=== PATIENT | female | born 1965 | race Caucasian/White ===

== ENCOUNTER → 2016-03-13 | Outpatient (CLI) | payer OTHER ==
[~2016-03-13] MED LIST: ASPI1TAB24 PO; BENA25CA4 PO; BLAC20TA PO; FLON1SPR; LEVO100T5 PO; OMEP20CA3 PO; OXYC1TAB23 PO; PREM.6256 PO; VALT500T PO
--- NOTE | 2016-03-28 01:26 | ECWPNPC ---
PATIENT NAME: EVERETT BUSTILLO : 1965 GENDER: FEMALE VISIT DATE: 03/13/2016 DISCHARGE DATE: 03/13/16 1618 VISIT LOCKED DATE TIME: PHYSICIAN: ARMAND AUGUSTE PHYSICIAN PAGER NO: [phone] RESOURCE: ARMAND AUGUSTE REASON FOR APPOINTMENT 1. RIGHT KNEE HISTORY OF PRESENT ILLNESS HISTORY OF PRESENT ILLNESS: PAIN THE PATIENT DESCRIBES THE PAIN... FALL RISK SCREENING: SCREENING :NO FALLS IN THE PAST YEAR TODAY'S VISIT: NOTES: RATES PAIN TODAY 2/10. STATES PAIN HAS IMPROVED SHE HAS BEEN RESTING THE KNEE MORE AND HAS NOT BEEN BUCYCLING. SAW DR VALENCIA WHO FEELS SHE MAY HAVE DEVELOPED A TENDONITIS IN THE RIGHT KNEE/QUAD AREA. RATES HER PAIN TODAY 2/10. DESCRIBES IT INTERMITTTANT AND BURNING... CURRENT MEDICATIONS TAKING MULTIVITAMINS OTC TABLET 1 TABLET ORALLY ONCE A DAY TAKING BIOTIN OTC TABLET 1 TABLET ORALLY ONCE A DAY TAKING FLONASE 50 MCG/ACT SUSPENSION 1 PUFF IN EACH NOSTRIL NASALLY ONCE A DAY NEEDED TAKING PENLAC 8 % SOLUTION 1 DROP TO AFFECTED TOE NAILS DAILY, CLEAN OFF WITH ALCOHOL EVERY 7 DAYS EXTERNALLY ONCE A DAY, NOTES: 1 WEEK TAKING CLARITIN 10 MG TABLET 1 TABLET ORALLY ONCE A DAY TAKING ACYCLOVIR 400 MG TABLET 1 TABLET ORALLY TWICE A DAY TAKING LEVOTHYROXINE SODIUM 112 MCG TABLET 1 TABLET ORALLY ONCE A DAY TAKING OMEPRAZOLE 20MG 20MG TABLET 1 TAB BEFORE MEAL ORAL ONCE A DAY TAKING BLACK COHOSH 40 MG CAPSULE ORALLY TAKING ZOFRAN ODT 4 MG TABLET DISPERSIBLE 1 TABLET ON THE TONGUE AND ALLOW TO DISSOLVE ORALLY EVERY 8 HRS PRN NAUSEA TAKING ASPIRIN CHILDRENS 81 MG TABLET CHEWABLE 1 TABLET ORALLY ONCE A DAY TAKING PERCOCET 5-325 MG TABLET 1 TABLET ORALLY ONCE PER DAY MDD=1 FOR PAIN NEEDED TAKING VALTREX 500MG TABLET 1 TAB PLANNED PARENTHOOD ORALLY EVERY 12 HOURS NOT-TAKING PROBIOTIC OTC CAPSULE 1 TABLET ORALLY ONCE A DAY, NOTES: 1 WEEK NOT-TAKING VALACYCLOVIR HCL 500 MG TABLET TAKE ONE TABLET BY MOUTH TWO TIMES A DAY NOT-TAKING NAPROXEN 500 MG TABLET 1 TABLET NEEDED ORALLY EVERY 12 HOURS NOT-TAKING PREMPRO 0.625-2.5 MG TABLET 1 TABLET ORALLY ONCE A DAY NOT-TAKING MOBIC 7.5 MG TABLET 1 TABLET ORALLY TWICE/DAY NOT-TAKING ORTHO TRI-CYCLEN LO 0.025 MG TABLET 1 TAB PLANNED PARENTHOOD ORALLY ONCE A DAY, NOTES: 0700 MEDICATION LIST REVIEWED AND RECONCILED WITH THE PATIENT PAST MEDICAL HISTORY HYPOTHYROIDISM ESOPHAGEAL REFLUX HS 2 DEPRESSION/ANXIETY SUBSTANCE ABUSE BARTHOLIN'S GLAND CYST SKIN CA NOSE--? BCCA ECHO 07/16: NORMAL (EF75%, NO ABNL) HOLTER 09/15: NORMAL, WAS IN NSR DURING SYMPTOMS ABPM 10/16:MEAN SBP 130S +RF 06/17, MILD RA SX (SEE 06/17 NOTE) DERMOID CYST RT PELVIS CT 2015 SJOGREN'S ALLERGIES DEMEROL: NAUSEA/VOMITING: ALLERGY REGLAN: EKG ABNORMALITIES: ALLERGY PREMPRO: PALPITATIONS: SIDE EFFECTS SOCIAL HISTORY GENERAL: TOBACCO USE ARE YOU A:NONSMOKER LEARNING BARRIERS / SPECIAL NEEDS ORIENTED TO PLAN OF CARE: PATIENT, PAIN MANAGEMENT PATIENT, ORIENTED TO PLAN OF CARE: PATIENT, PAIN MANAGEMENT PATIENT. NEW PATIENT PAIN DIARY TODAY'S VISITNOTES FROM 0-10, WHAT LEVEL IS YOUR PAIN TODAY?0 PAIN CLINIC PFS, CLERGY, PUBLIC HEALTH REFERRALS PFS REFERRAL NEEDED?NO CLERGY REFERRAL NEEDED?NO PUBLIC HEALTH REFERRAL NEEDED?NO WAS THE PROVIDER NOTIFIED OF ANY PERTINENT INFO?NO PFS REFERRAL NEEDED?NO CLERGY REFERRAL NEEDED?NO PUBLIC HEALTH REFERRAL NEEDED?NO WAS THE PROVIDER NOTIFIED OF ANY PERTINENT INFO?NO REVIEW OF SYSTEMS CONSTITUTIONAL: ANY CHANGE IN YOUR MEDICAL CONDITION? NO . CHILLS NO . FEVER NO . INFECTION: DO YOU HAVE NEW INFECTIONS? NO . DO YOU HAVE HISTORY OF MRSA? NO . MUSCULOSKELETAL: ANY NEW PATTERNS OF PAIN OR NUMBNESS? NO . GASTROENTEROLOGY: ANY NEW CHANGE IN BOWEL CONTROL? NO . GENITOURINARY: ANY NEW CHANGE IN BLADDER CONTROL? NO . IS THERE A CHANCE YOU COULD BE ? NO . HEMATOLOGY/LYMPH: DO YOU TAKE ANY BLOOD THINNERS? (FOR EXAMPLE- COUMADIN, PLAVIX, AGGRENOX, PLATEL, PRADAXA, OR XARELTO) NO . WHEN WAS YOUR LAST DOSE? DATE: TIME: . NEUROLOGY: HAVE YOU FALLEN IN THE PAST 6 MONTHS? NO . ANY NEW EXTREMITY NUMBNESS OR WEAKNESS? NO . CARDIOLOGY: DO YOU HAVE A PACEMAKER OR DEFIBRILLATOR? NO . CHEST PAIN PATIENT DENIES . RESPIRATORY: HAVE YOU BEEN SICK IN THE PAST WEEK? NO . FEVER NO . FLU LIKE SYMPTOMS? NO . COUGH NO . INTEGUMENTARY: DO YOU HAVE ANY RASHES OR OPEN SORES? NO . ALLERGIC/IMMUNO: ARE YOU ALLERGIC TO SHELLFISH OR IV DYE? NO . ANY NEW ALLERGIES? NO . PSYCHIATRIC: DO YOU HAVE THOUGHTS OF HURTING YOURSELF OR SOMEONE ELSE? NO . ARE YOU ABUSED, NEGLECTED, OR IN AN UNSAFE ENVIRONMENT? NO . ENDOCRINOLOGY: ARE YOU DIABETIC? NO . OTHER: DO YOU NEED ANY PRESCRIPTIONS? YES PERCOCET . IF YES, PLEASE LIST: ____ . ANY NEW PROBLEMS WITH YOUR MEDICATIONS? NO . WHEN DID YOU LAST EAT? ____ . WHEN DID YOU LAST DRINK? ____ . WHAT DID YOU LAST DRINK? ____ . NAME OF PERSON DRIVING YOU HOME? ____ . DO YOU HAVE ANY OTHER QUESTIONS OR CONCERNS NO . 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 . REVIEWED BY: PROVIDER: ARMAND HOLLOWAY . VITAL SIGNS WT 114 LBS, HT 63 IN, BMI 20.19 INDEX, BP 120/50 MM HG, HR 88 /MIN, RR 16 /MIN, TEMP 98.2 F, OXYGEN SAT % 96, SAFE IN ENV? (Y/N) Y, REVIEWED BY: [email or web address]. EXAMINATION GENERAL EXAMINATION: PSYCHALERT , ORIENTED X 3 , APPROPRIATE MOOD AND AFFECT, FRUSTRATED . LUNGS:CLEAR TO AUSCULTATION BILATERALLY. HEART:HEART RATE REGULAR. MUSCULOSKELETAL:PALPATION: POSITIVE FOR PAIN OVER L/S SPINE. POSITIVE FOR PAIN OVER L/S PARSPINALS, TRIGGER POINTS:, ELICITED WITH PALPATION OVER LUMBAR PARAVERTEBRAL MUSCLES AND INTO THE SECRUM. RESTRICTION OF ROM IN THIS AREA. GAIT ANTALGIC. JOINTS:RIGHT , KNEE , TENDER, WITH RANGE OF MOTION . NO WARMTH OR SWELLING NOTED TODAY. ASSESSMENTS RHEUMATOID FACTOR POSITIVE - R76.8 (PRIMARY) MYALGIA - M79.1 KNEE PAIN, RIGHT - M25.561 TREATMENT KNEE PAIN, RIGHT REFILL PERCOCET TABLET, 5-325 MG, 1 TABLET, ORALLY, ONCE PER DAY MDD=1 FOR PAIN NEEDED, 30 DAYS, 20, REFILLS 0 NOTES: STRETCH BEFORE BIKING. ICE TO KNEE NEEDED. PROCEDURE CODES FA211 ESTABILISHED PATIENT [facility] CHARGE FOLLOW UP LATE MAY ELECTRONICALLY SIGNED BY SAVITA ALAS ON 03/26/2016 AT 02:38 PM EST DISCLAIMER : THIS IS A VISIT SUMMARY EXTRACTED FROM THE [employer] CHART. IT IS NOT A COPY OF THE [employer] PROGRESS NOTE. JOSE
== END ==
LOC: M PAIN 15:00
PROVIDERS: ATTEND Nurse Practitioner Family
DX: Z09 Encounter for follow-up examination after completed treatment for conditions other than malignant neoplasm (principal); M79.1 Myalgia; M25.561 Pain in right knee; R76.8 Other specified abnormal immunological findings in serum; E03.9 Hypothyroidism, unspecified; K21.9 Gastro-esophageal reflux disease without esophagitis; F32.9 Major depressive disorder, single episode, unspecified; F41.9 Anxiety disorder, unspecified; M35.00 Sjogren syndrome, unspecified; Z88.8 Allergy status to other drugs, medicaments and biological substances; Z88.5 Allergy status to narcotic agent; Z79.82 Long term (current) use of aspirin; Z79.891 Long term (current) use of opiate analgesic; Z79.899 Other long term (current) drug therapy; Z86.59 Personal history of other mental and behavioral disorders

== ENCOUNTER → 2016-03-16 | Outpatient (REF) | payer OTHER ==
[~2016-03-16] MED LIST changes: -ASPI1TAB24 PO; -BENA25CA4 PO; -BLAC20TA PO; -FLON1SPR; -LEVO100T5 PO; -OMEP20CA3 PO; -OXYC1TAB23 PO; -VALT500T PO
== END ==
LOC: M LAB REF 16:51
PROVIDERS: ATTEND Obstetrics & Gynecology
DX: N93.9 Abnormal uterine and vaginal bleeding, unspecified (principal)

== ENCOUNTER → 2016-03-22 | Outpatient (CLI) | payer OTHER ==
[~2016-03-22] MED LIST changes: +ASPI1TAB24 PO; +BENA25CA4 PO; +BLAC20TA PO; +FLON1SPR; +LEVO100T5 PO; +OMEP20CA3 PO; +OXYC1TAB23 PO; +VALT500T PO
[2016-03-22 17:58] LABS: FREE T4 1.02 NG/DL (0.76-1.46)
== END ==
LOC: M SMT 14:21
PROVIDERS: ATTEND Physician Assistant Medical
DX: E89.0 Postprocedural hypothyroidism (principal)

== ENCOUNTER 2016-04-09 09:14 | Day surgery (SDC) | payer OTHER ==
[~2016-04-09] VITALS: Ht 160 cm; Wt 53.5 kg
[2016-04-09] MEDS ORDERED: LR 1,000 ML IV SCH ×3 (09:30→15:56)
[2016-04-09] MEDS ORDERED: MULT1TAB18 PO (09:53)
[2016-04-09 10:07] LABS: CONTROL LINE UCG INT CTR LINE PRESENT
[2016-04-09 10:16] LABS: MEAN CORPUSCULAR HEMOGLOBIN 32.5 pg (27.0-33.0); MEAN CORPUSCULAR HGB CONC 33.6 g/dl (32.0-36.5); MEAN CORPUSCULAR VOLUME 96.7 fl (80.0-96.0); RED CELL DISTRIBUTION WIDTH 11.8 % (11.5-14.5); WHITE BLOOD COUNT 14.2 K/mm3 (4.0-10.0)
[2016-04-09] MEDS ORDERED: BUPIVACAINE HCL 0.25% 30 ML VIAL As Ordered ONE (11:07)
[2016-04-09] MEDS ORDERED: METHYLENE BLUE 1% 10 ML VIAL (Q9968) As Ordered ONE (11:07)
[2016-04-09] MEDS ORDERED: PROPOFOL 200 MG/20 ML VIAL As Ordered ONE ×2 (12:34→14:21)
[2016-04-09] MEDS ORDERED: ONDANSETRON 4MG/2ML VIAL (J2405) As Ordered ONE (12:34)
[2016-04-09] MEDS ORDERED: LIDOCAINE 2% INJ 100 MG/5 ML SDV (FOR ANES.) As Ordered ONE (12:34)
[2016-04-09] MEDS ORDERED: fentaNYL 250 MCG/5 ML INJECTION (J3010) As Ordered ONE (12:34)
[2016-04-09] MEDS ORDERED: ROCURONIUM BROMIDE 50 MG/5 ML VIAL As Ordered ONE ×2 (12:34→12:50)
[2016-04-09] MEDS ORDERED: MIDAZOLAM INJ 2 MG/2 ML VIAL (J2250) As Ordered ONE (12:34)
[2016-04-09] MEDS ORDERED: HYDROmorphone HCL 2 MG/ML 1ML VIAL (J1170) As Ordered ONE (12:34)
[2016-04-09] MEDS ORDERED: NEOSTIGMINE 1MG/ML 5 ML SYRINGE (J2710) As Ordered ONE (12:34)
[2016-04-09] MEDS ORDERED: dexameTHASONE 4 MG/ML 1ML VIAL (J1100) As Ordered ONE (12:34)
[2016-04-09] MEDS ORDERED: GLYCOPYRROLATE INJ 0.2 MG/ML 2 ML VIAL As Ordered ONE (12:34)
[2016-04-09] MEDS ORDERED: KETOROLAC 60 MG/2 ML VIAL (J1885) As Ordered ONE (12:34)
[2016-04-09] MEDS ORDERED: fentaNYL 100 MCG/2 ML INJECTION (J3010) As Ordered ONE (15:20)
[2016-04-09] MEDS ORDERED: METHYLENE BLUE 1% 10 ML VIAL (Q9968) XX ONE (15:26)
[2016-04-09] MEDS ORDERED: BUPIVACAINE HCL 0.25% 30 ML VIAL XX ONE (15:26)
[2016-04-09] MEDS ORDERED: ONDANSETRON 4MG/2ML VIAL (J2405) IV PRN ×2 (16:00→16:15)
[2016-04-09] MEDS ORDERED: PERCOCET 5MG/325MG TAB PO PRN (16:00)
[2016-04-09] MEDS ORDERED: PROMETHAZINE INJ 25 MG/ML VIAL (J2550) IV PRN (16:00)
[2016-04-09] MEDS: LR 1,000 ML IV SCH ×2 (16:15→16:53)
[2016-04-09 16:30] VITALS: BP 137/85
[2016-04-09 17:00] VITALS: BP 123/79
[2016-04-09 18:00] VITALS: BP 133/80
[2016-04-09] MEDS: KETOROLAC 30 MG/ML VIAL (J1885) IV SCH (18:42)
[2016-04-09 18:57] VITALS: BP 145/79
[2016-04-09] MEDS: PERCOCET 5MG/325MG TAB PO PRN ×2 (18:58→22:49)
[2016-04-09] MEDS: DOCUSATE SODIUM 100 MG CAP PO SCH (21:07)
[2016-04-09 22:56] VITALS: BP 120/70
[2016-04-10] MEDS: KETOROLAC 30 MG/ML VIAL (J1885) IV SCH ×2 (01:41→06:44)
[2016-04-10 02:00] VITALS: BP 116/63
[2016-04-10] MEDS: PERCOCET 5MG/325MG TAB PO PRN (05:27)
[2016-04-10 05:31] VITALS: BP 123/60
[2016-04-10 07:08] LABS: BASO % 0.1 % (0.0-1.0); EOS # 0.1 K/mm3 (0.0-0.50); EOS % 0.8 % (0.0-3.0); LARGE UNSTAINED CELL # 0.1 K/mm3 (0.0-0.4); LARGE UNSTAINED CELL % 0.8 % (0.0-4.0); LYMPH # 2.1 K/mm3 (1.5-4.5); LYMPH % 15.4 % (24.0-44.0); MEAN CORPUSCULAR HEMOGLOBIN 32.4 pg (27.0-33.0); MEAN CORPUSCULAR HGB CONC 33.1 g/dl (32.0-36.5); MEAN CORPUSCULAR VOLUME 97.7 fl (80.0-96.0); MONO # 0.7 K/mm3 (0.0-0.8); MONO % 5.4 % (0.0-5.0); NEUTROPHILS # 10.2 K/mm3 (1.8-7.7); NEUTROPHILS % 77.6 % (36.0-66.0); PLATELET COUNT, AUTOMATED 257 k/mm3 (150-450); RED CELL DISTRIBUTION WIDTH 12.4 % (11.5-14.5); WHITE BLOOD COUNT 13.1 K/mm3 (4.0-10.0)
[2016-04-10] MEDS: DOCUSATE SODIUM 100 MG CAP PO SCH (08:34)
[2016-04-10] MEDS ORDERED: OXYC1TAB23 PO (10:11)
[2016-04-10] MEDS ORDERED: IBUP600T26 PO (10:13)
[2016-04-10] MEDS ORDERED: COLA100C PO (10:13)
[2016-04-10] MEDS ORDERED: IBUPROFEN 800 MG TAB PO SCH (21:00)
== END 2016-04-10 11:40 | disposition home or self-care (01) ==
LOC: M SDC 09:14 → M OBS 16:40 → M SDC 04-10 11:40
PROVIDERS: ATTEND Obstetrics & Gynecology
DX: N93.9 Abnormal uterine and vaginal bleeding, unspecified (principal); R10.2 Pelvic and perineal pain; R19.09 Other intra-abdominal and pelvic swelling, mass and lump; D25.9 Leiomyoma of uterus, unspecified; E05.90 Thyrotoxicosis, unspecified without thyrotoxic crisis or storm; M50.920 Unspecified cervical disc disorder, mid-cervical region, unspecified level; R76.8 Other specified abnormal immunological findings in serum; F43.22 Adjustment disorder with anxiety; B00.9 Herpesviral infection, unspecified; I51.7 Cardiomegaly; K21.9 Gastro-esophageal reflux disease without esophagitis; F41.9 Anxiety disorder, unspecified; F32.9 Major depressive disorder, single episode, unspecified; N75.0 Cyst of Bartholin's gland; M06.9 Rheumatoid arthritis, unspecified; G89.29 Other chronic pain; T88.4XXD Failed or difficult intubation, subsequent encounter; T88.59XD Other complications of anesthesia, subsequent encounter; R01.1 Cardiac murmur, unspecified; Z88.1 Allergy status to other antibiotic agents; Z79.899 Other long term (current) drug therapy; Z79.82 Long term (current) use of aspirin; Z85.828 Personal history of other malignant neoplasm of skin
CPT/HCPCS: 36415; 58571; 84703; 85025; 85027; 86850; 86900; 86901; 88309; J0690; J1100; J1170; J1885; J2250; J2405; J2710; J3010; Q9968

== ENCOUNTER → 2016-05-07 | Outpatient (CLI) | payer OTHER ==
[~2016-05-07] MED LIST changes: +COLA100C PO; +IBUP600T26 PO; +MULT1TAB18 PO
[2016-05-07 21:16] LABS: FREE T4 1.01 NG/DL (0.76-1.46)
== END ==
LOC: M ADAMS 18:30
PROVIDERS: ATTEND Physician Assistant Medical
DX: E89.0 Postprocedural hypothyroidism (principal)

== ENCOUNTER → 2016-05-22 | Outpatient (CLI) | payer OTHER ==
--- NOTE | 2016-05-26 00:29 | ECWPNPC ---
PATIENT NAME: EVERETT BUSTILLO : 1965 GENDER: FEMALE VISIT DATE: 05/22/2016 DISCHARGE DATE: 05/22/16 1506 VISIT LOCKED DATE TIME: PHYSICIAN: ARMAND AUGUSTE PHYSICIAN PAGER NO: [phone] RESOURCE: ARMAND AUGUSTE REASON FOR APPOINTMENT 1. RIGHT KNEE HISTORY OF PRESENT ILLNESS HISTORY OF PRESENT ILLNESS: PAIN THE PATIENT DESCRIBES THE PAIN... FALL RISK SCREENING: SCREENING :NO FALLS IN THE PAST YEAR TODAY'S VISIT: NOTES: RATES PAIN TODAY 5/10. PAIN CENTERED ACROSS LOW BACK, RIGHT SHOULDERBLADE AND ACROSS NECK/SHOULDER GIRDLE. NOTES SHOULDERS ARE STIFF. KNEES ARE NOT TOO PAINFUL - HAS NOT BEEN BIKING BEFORE. . CURRENT MEDICATIONS TAKING MULTIVITAMINS OTC TABLET 1 TABLET ORALLY ONCE A DAY TAKING BIOTIN OTC TABLET 1 TABLET ORALLY ONCE A DAY TAKING FLONASE 50 MCG/ACT SUSPENSION 1 PUFF IN EACH NOSTRIL NASALLY ONCE A DAY NEEDED TAKING PENLAC 8 % SOLUTION 1 DROP TO AFFECTED TOE NAILS DAILY, CLEAN OFF WITH ALCOHOL EVERY 7 DAYS EXTERNALLY ONCE A DAY, NOTES: 1 WEEK TAKING CLARITIN 10 MG TABLET 1 TABLET ORALLY ONCE A DAY TAKING LEVOTHYROXINE SODIUM 88 MCG TABLET 1 TABLET ORALLY ONCE A DAY TAKING BLACK COHOSH 40 MG CAPSULE ORALLY DAILY TAKING ZOFRAN ODT 4 MG TABLET DISPERSIBLE 1 TABLET ON THE TONGUE AND ALLOW TO DISSOLVE ORALLY EVERY 8 HRS PRN NAUSEA TAKING ASPIRIN CHILDRENS 81 MG TABLET CHEWABLE 1 TABLET ORALLY ONCE A DAY TAKING PERCOCET 5-325 MG TABLET 1 TABLET ORALLY ONCE PER DAY MDD=1 FOR PAIN NEEDED TAKING ACYCLOVIR 400 MG TABLET 1 TABLET ORALLY TWICE A DAY TAKING VALTREX 500MG TABLET 1 TAB PLANNED PARENTHOOD ORALLY BID TAKING OMEPRAZOLE 20MG 20MG TABLET 1 TAB BEFORE MEAL ORAL ONCE A DAY TAKING ACIDOPHILUS - TABLET 1 TAB ORALLY DAILY NOT-TAKING OMEPRAZOLE 20 MG CAPSULE DELAYED RELEASE TAKE ONE CAPSULE BY MOUTH EVERY DAY BEFORE A MEAL MEDICATION LIST REVIEWED AND RECONCILED WITH THE PATIENT PAST MEDICAL HISTORY HYPOTHYROIDISM ESOPHAGEAL REFLUX HS 2 DEPRESSION/ANXIETY SUBSTANCE ABUSE BARTHOLIN'S GLAND CYST SKIN CA NOSE--? BCCA ECHO 07/16: NORMAL (EF75%, NO ABNL) HOLTER 09/15: NORMAL, WAS IN NSR DURING SYMPTOMS ABPM 10/16:MEAN SBP 130S +RF 06/17, MILD RA SX (SEE 06/17 NOTE) DERMOID CYST RT PELVIS CT 2016 SJOGREN'S ALLERGIES DEMEROL: NAUSEA/VOMITING: ALLERGY REGLAN: EKG ABNORMALITIES: ALLERGY PREMPRO: PALPITATIONS: SIDE EFFECTS SURGICAL HISTORY TONSILLECTOMY COLPOSCOPY LEEP -(PLANNED PARENTHOOD) 08/08 HYSTERECTOMY 04/09/16 SOCIAL HISTORY GENERAL: TOBACCO USE ARE YOU A:NONSMOKER LEARNING BARRIERS / SPECIAL NEEDS ORIENTED TO PLAN OF CARE: PATIENT, PAIN MANAGEMENT PATIENT, ORIENTED TO PLAN OF CARE: PATIENT, PAIN MANAGEMENT PATIENT. NEW PATIENT PAIN DIARY TODAY'S VISITNOTES FROM 0-10, WHAT LEVEL IS YOUR PAIN TODAY?0 PAIN CLINIC PFS, CLERGY, PUBLIC HEALTH REFERRALS PFS REFERRAL NEEDED?NO CLERGY REFERRAL NEEDED?NO PUBLIC HEALTH REFERRAL NEEDED?NO WAS THE PROVIDER NOTIFIED OF ANY PERTINENT INFO?NO PFS REFERRAL NEEDED?NO CLERGY REFERRAL NEEDED?NO PUBLIC HEALTH REFERRAL NEEDED?NO WAS THE PROVIDER NOTIFIED OF ANY PERTINENT INFO?NO REVIEW OF SYSTEMS CONSTITUTIONAL: ANY CHANGE IN YOUR MEDICAL CONDITION? YES, HYSTERECTOMY 04/09/16 . CHILLS NO . FEVER NO . INFECTION: DO YOU HAVE NEW INFECTIONS? NO . DO YOU HAVE HISTORY OF MRSA? NO . MUSCULOSKELETAL: ANY NEW PATTERNS OF PAIN OR NUMBNESS? NO . GASTROENTEROLOGY: ANY NEW CHANGE IN BOWEL CONTROL? NO . GENITOURINARY: ANY NEW CHANGE IN BLADDER CONTROL? NO . IS THERE A CHANCE YOU COULD BE ? NO . HEMATOLOGY/LYMPH: DO YOU TAKE ANY BLOOD THINNERS? (FOR EXAMPLE- COUMADIN, PLAVIX, AGGRENOX, PLATEL, PRADAXA, OR XARELTO) NO . WHEN WAS YOUR LAST DOSE? DATE: TIME: . NEUROLOGY: HAVE YOU FALLEN IN THE PAST 6 MONTHS? NO . ANY NEW EXTREMITY NUMBNESS OR WEAKNESS? NO . CARDIOLOGY: DO YOU HAVE A PACEMAKER OR DEFIBRILLATOR? NO . RESPIRATORY: HAVE YOU BEEN SICK IN THE PAST WEEK? NO . FEVER NO . FLU LIKE SYMPTOMS? NO . COUGH NO . INTEGUMENTARY: DO YOU HAVE ANY RASHES OR OPEN SORES? NO . ALLERGIC/IMMUNO: ARE YOU ALLERGIC TO SHELLFISH OR IV DYE? NO . ANY NEW ALLERGIES? NO . PSYCHIATRIC: DO YOU HAVE THOUGHTS OF HURTING YOURSELF OR SOMEONE ELSE? NO . ARE YOU ABUSED, NEGLECTED, OR IN AN UNSAFE ENVIRONMENT? NO . ENDOCRINOLOGY: ARE YOU DIABETIC? NO . OTHER: DO YOU NEED ANY PRESCRIPTIONS? YES . IF YES, PLEASE LIST: OXYCODONE 5/325 MG . ANY NEW PROBLEMS WITH YOUR MEDICATIONS? NO . WHEN DID YOU LAST EAT? ____ . WHEN DID YOU LAST DRINK? ____ . WHAT DID YOU LAST DRINK? ____ . NAME OF PERSON DRIVING YOU HOME? ____ . DO YOU HAVE ANY OTHER QUESTIONS OR CONCERNS YES, WOULD LIKE TO SCHEDULE PAIN INJECTION IN BACK . 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 HAS HAS SOME SEVERE HOT FLASHES. IS CONSIDERING HRT . REVIEWED BY: PROVIDER: ARMAND HOLLOWAY . VITAL SIGNS WT 115.2 LBS, HT 63 IN, BMI 20.40 INDEX, BP 119/74 MM HG, HR 94 /MIN, RR 16 /MIN, TEMP 99.1 F, OXYGEN SAT % 99%, NA INITIALS SC 14:08, REVIEWED BY: SHAUNA. EXAMINATION GENERAL EXAMINATION: PSYCHALERT , ORIENTED X 3 , APPROPRIATE MOOD AND AFFECT, FRUSTRATED . LUNGS:CLEAR TO AUSCULTATION BILATERALLY. HEART:HEART RATE REGULAR. MUSCULOSKELETAL:PALPATION: POSITIVE FOR PAIN OVER L/S SPINE. POSITIVE FOR PAIN OVER L/S PARSPINALS, TRIGGER POINTS:, ELICITED WITH PALPATION OVER LUMBAR PARAVERTEBRAL MUSCLES AND INTO THE SECRUM. RESTRICTION OF ROM IN THIS AREA. GAIT ANTALGIC. JOINTS:RIGHT , KNEE , TENDER, WITH RANGE OF MOTION . NO WARMTH OR SWELLING NOTED TODAY. ASSESSMENTS MYALGIA - M79.1 (PRIMARY) CERVICALGIA - M54.2 TREATMENT MYALGIA REFILL PERCOCET TABLET, 5-325 MG, 1 TABLET, ORALLY, ONCE PER DAY MDD=1 FOR PAIN NEEDED, 30 DAYS, 20, REFILLS 0 TRIGGER POINT 3 + ARMAND GUERRERO 05/22/2016 2:52:26 PM > MID AND LOW BACK BILATERAL NOTES: EXERCISE TOLERATED. CLINICAL NOTES: ISTOP REGISTRY REVIEWED AND DEMNOSTRATES COMPLLIANCE. BRINGS IN MEDICATIONS WHICH IS APPROPRIATE FOR WHAT WAS DISPENSED. RECENT URINE TOXICOLOGY REVIEWED. NO UNAUTHORIZED MEDICATIONS. NO ILLICIT SUBSTANCES AND PRESCRIBED MEDICATIONS WERE PRESENT. PROCEDURE CODES FA211 ESTABILISHED PATIENT [facility] CHARGE DISPOSITION & COMMUNICATION FOLLOW UP AFTER INJECTION (REASON: CHECK AUTH FOR TPI LOW BACK) ELECTRONICALLY SIGNED BY SAVITA ALAS ON 05/25/2016 AT 06:38 PM EDT DISCLAIMER : THIS IS A VISIT SUMMARY EXTRACTED FROM THE [employer] CHART. IT IS NOT A COPY OF THE [employer] PROGRESS NOTE. JOSE
== END ==
LOC: M PAIN 14:00
PROVIDERS: ATTEND Nurse Practitioner Family
DX: Z09 Encounter for follow-up examination after completed treatment for conditions other than malignant neoplasm (principal); G89.29 Other chronic pain; M79.1 Myalgia; M54.2 Cervicalgia; E03.9 Hypothyroidism, unspecified; K21.9 Gastro-esophageal reflux disease without esophagitis; L73.2 Hidradenitis suppurativa; F32.9 Major depressive disorder, single episode, unspecified; F41.9 Anxiety disorder, unspecified; M35.00 Sjogren syndrome, unspecified; Z88.5 Allergy status to narcotic agent; Z88.8 Allergy status to other drugs, medicaments and biological substances; Z79.82 Long term (current) use of aspirin; Z79.891 Long term (current) use of opiate analgesic; Z79.899 Other long term (current) drug therapy; Z86.59 Personal history of other mental and behavioral disorders

== ENCOUNTER → 2016-06-20 | Outpatient (CLI) | payer OTHER ==
[~2016-06-20] MED LIST changes: +BUPIVACAINE HCL 0.25% 10 ML VIAL As Ordered ONE; +BUPIVACAINE HCL 0.25% 30 ML VIAL As Ordered ONE; -COLA100C PO; +COLA100C3 PO; +TRIAMCINOLONE ACETONIDE SUSP 40 MG/ML VIAL (J3301) As Ordered ONE; +diazePAM 5 MG TAB As Ordered ONE; +oxyCODONE 5MG TAB As Ordered ONE
--- NOTE | 2016-06-25 00:13 | ECWPNPC ---
PATIENT NAME: EVERETT BUSTILLO : 1965 GENDER: FEMALE VISIT DATE: 06/20/2016 DISCHARGE DATE: 06/20/16 1621 VISIT LOCKED DATE TIME: PHYSICIAN: RUTHY AYERS PHYSICIAN PAGER NO: [phone] RESOURCE: RUTHY AYERS REASON FOR APPOINTMENT 1. TPI HISTORY OF PRESENT ILLNESS HISTORY OF PRESENT ILLNESS: PAIN THE PATIENT DESCRIBES THE PAIN... FALL RISK SCREENING: SCREENING :NO FALLS IN THE PAST YEAR CURRENT MEDICATIONS TAKING MULTIVITAMINS OTC TABLET 1 TABLET ORALLY ONCE A DAY, NOTES: 121 TAKING BIOTIN OTC TABLET 1 TABLET ORALLY ONCE A DAY, NOTES: 729 TAKING FLONASE 50 MCG/ACT SUSPENSION 1 PUFF IN EACH NOSTRIL NASALLY ONCE A DAY NEEDED, NOTES: 729 TAKING CLARITIN 10 MG TABLET 1 TABLET ORALLY ONCE A DAY, NOTES: 06/19/16@2100 TAKING LEVOTHYROXINE SODIUM 88 MCG TABLET 1 TABLET ORALLY ONCE A DAY, NOTES: 729 TAKING BLACK COHOSH 40 MG CAPSULE ORALLY DAILY, NOTES: 729 TAKING ZOFRAN ODT 4 MG TABLET DISPERSIBLE 1 TABLET ON THE TONGUE AND ALLOW TO DISSOLVE ORALLY EVERY 8 HRS PRN NAUSEA, NOTES: 1 MONTH AGO TAKING ASPIRIN CHILDRENS 81 MG TABLET CHEWABLE 1 TABLET ORALLY ONCE A DAY, NOTES: 06/19/16@2200 TAKING ACYCLOVIR 400 MG TABLET 1 TABLET ORALLY TWICE A DAY, NOTES: 729 TAKING VALTREX 500MG TABLET 1 TAB PLANNED PARENTHOOD ORALLY BID, NOTES: 1 WEEK TAKING OMEPRAZOLE 20MG 20MG TABLET 1 TAB BEFORE MEAL ORAL ONCE A DAY, NOTES: 1214 TAKING ACIDOPHILUS - TABLET 1 TAB ORALLY DAILY, NOTES: 729 TAKING PERCOCET 5-325 MG TABLET 1 TABLET ORALLY ONCE PER DAY MDD=1 FOR PAIN NEEDED, NOTES: 2 DAYS AGO TAKING PENLAC 8% SOLUTION 1 DROP TO AFFECTED TOE NAILS DAILY, CLEAN OFF WITH ALCOHOL EVERY 7 DAYS EXTERNALLY ONCE A DAY, NOTES: 1 MONTH AGO NOT-TAKING OMEPRAZOLE 20 MG CAPSULE DELAYED RELEASE TAKE ONE CAPSULE BY MOUTH EVERY DAY BEFORE A MEAL MEDICATION LIST REVIEWED AND RECONCILED WITH THE PATIENT PAST MEDICAL HISTORY HYPOTHYROIDISM ESOPHAGEAL REFLUX HS 2 DEPRESSION/ANXIETY SUBSTANCE ABUSE BARTHOLIN'S GLAND CYST SKIN CA NOSE--? BCCA ECHO 07/16: NORMAL (EF75%, NO ABNL) HOLTER 09/15: NORMAL, WAS IN NSR DURING SYMPTOMS ABPM 10/16:MEAN SBP 130S +RF 06/17, MILD RA SX (SEE 06/17 NOTE) DERMOID CYST RT PELVIS CT 2016 SJOGREN'S ALLERGIES DEMEROL: NAUSEA/VOMITING: ALLERGY REGLAN: EKG ABNORMALITIES: ALLERGY PREMPRO: PALPITATIONS: SIDE EFFECTS SOCIAL HISTORY GENERAL: PAIN CLINIC PFS, CLERGY, PUBLIC HEALTH REFERRALS CLERGY REFERRAL NEEDED?NO WAS THE PROVIDER NOTIFIED OF ANY PERTINENT INFO?NO PFS REFERRAL NEEDED?NO PUBLIC HEALTH REFERRAL NEEDED?NO PATIENT: ____. REVIEW OF SYSTEMS CONSTITUTIONAL: ANY CHANGE IN YOUR MEDICAL CONDITION? NO . CHILLS NO . FEVER NO . INFECTION: DO YOU HAVE NEW INFECTIONS? NO . DO YOU HAVE HISTORY OF MRSA? NO . MUSCULOSKELETAL: ANY NEW PATTERNS OF PAIN OR NUMBNESS? NO . GASTROENTEROLOGY: ANY NEW CHANGE IN BOWEL CONTROL? NO . GENITOURINARY: ANY NEW CHANGE IN BLADDER CONTROL? NO . IS THERE A CHANCE YOU COULD BE ? NO . HEMATOLOGY/LYMPH: DO YOU TAKE ANY BLOOD THINNERS? (FOR EXAMPLE- COUMADIN, PLAVIX, AGGRENOX, PLATEL, PRADAXA, OR XARELTO) NO . WHEN WAS YOUR LAST DOSE? DATE: TIME: . NEUROLOGY: HAVE YOU FALLEN IN THE PAST 6 MONTHS? NO . ANY NEW EXTREMITY NUMBNESS OR WEAKNESS? NO . CARDIOLOGY: DO YOU HAVE A PACEMAKER OR DEFIBRILLATOR? NO . RESPIRATORY: HAVE YOU BEEN SICK IN THE PAST WEEK? NO . FEVER NO . FLU LIKE SYMPTOMS? NO . COUGH NO . INTEGUMENTARY: DO YOU HAVE ANY RASHES OR OPEN SORES? NO . ALLERGIC/IMMUNO: ARE YOU ALLERGIC TO SHELLFISH OR IV DYE? NO . ANY NEW ALLERGIES? NO . PSYCHIATRIC: DO YOU HAVE THOUGHTS OF HURTING YOURSELF OR SOMEONE ELSE? NO . ARE YOU ABUSED, NEGLECTED, OR IN AN UNSAFE ENVIRONMENT? NO . ENDOCRINOLOGY: ARE YOU DIABETIC? NO . OTHER: DO YOU NEED ANY PRESCRIPTIONS? NO . IF YES, PLEASE LIST: ____ . ANY NEW PROBLEMS WITH YOUR MEDICATIONS? NO . WHEN DID YOU LAST EAT? ____0930 . WHEN DID YOU LAST DRINK? ____1330 . WHAT DID YOU LAST DRINK? ____VEGTABLE BROTH AND WATER . NAME OF PERSON DRIVING YOU HOME? ____KEN . DO YOU HAVE ANY OTHER QUESTIONS OR CONCERNS NO . REVIEWED BY: PROVIDER: . VITAL SIGNS WT 115 LBS, HT 63 IN, BMI 20.37 INDEX, BP 114/69 MM HG, HR 70 /MIN, RR 16 /MIN, TEMP 98.4 F, OXYGEN SAT % 99%, NA INITIALS SC 15:28. ASSESSMENTS MYALGIA - M79.1 (PRIMARY) PROCEDURES PN TRIGGER POINT INJECTION WITH STEROIDS PRE PROCEDURE DIAGNOSIS 1. MYALGIA 2. PAIN AT BILATERAL NECK AREA AND BILATERAL SHOULDER AREA POST PROCEDURE DIAGNOSIS 1. MYALGIA 2. PAIN AT BILATERAL NECK AREA AND BILATERAL SHOULDER AREA PROCEDURE TRIGGER POINT INJECTION AT BILATERAL NECK AREA AND BILATERAL SHOULDER AREA SURGEON DR. RUTHY AYERS ASSOCIATION EXECUTIVE NONE ANESTHESIA LOCAL PRE PROCEDURE NOTE THE PATIENT HAS A HISTORY OF CHRONIC PAIN AT THE RIGHT AND LEFT NECK AREA AND RIGHT AND LEFT SHOULDER AREA. I EVALUATE THE PATIENT AND REVIEWED THE CHART. THERE IS EVIDENCE OF BANDS OF TISSUE WITH RESTRICTION OF MOVEMENT AND PRESENCE OF TRIGGER POINT AT THE AFFECTED AREA. I WENT OVER THE RISKS, ALTERNATIVES, AND BENEFITS ASSOCIATED WITH THIS PROCEDURE. THE PATIENT WOULD LIKE TO PROCEED AND GIVE CONSENT TO PERFORMED THE PROCEDURE. THE PATIENT DENIES UNEXPLAINABLE WEIGHT LOSS, FEVER, CHILLS, OR NEW CHANGES IN URINARY OR BOWEL CONTROL DESCRIPTION OF PROCEDURE THE PATIENT WAS BROUGHT TO THE PROCEDURE ROOM AND PLACED IN THE SITTING POSITION. THE AREA WAS CLEANED WITH ALCOHOL. THE PROCEDURE WAS DONE USING ASEPTIC STERILE TECHNIQUE. I CHECKED LATERALITY AND THE LEVEL WHERE THE PROCEDURE WAS GOING TO BE PERFORMED WITH THE PATIENT AND THE SUPPORTING STAFF AT THE MOMENT OF THE TIME OUT IN THE PROCEDURE ROOM. USING A 25-GAUGE NEEDLE, TRIGGER POINTS WERE INJECTED AT THE RIGHT AND LEFT NECK AREA AND RIGHT AND LEFT SHOULDER AREA WITH A TOTAL OF 40 ML OF BUPIVACAINE 0.25% AND KENALOG 40 MG. THERE WAS NO EVIDENCE OF BLOOD, PARESTHESIA OR CEREBROSPINAL FLUID DURING THE PROCEDURE. THE PATIENT WAS SENT TO THE RECOVERY ROOM. THE PATIENT WAS MOVING THE EXTREMITIES AND DOING WELL. THERE WAS NO COMPLICATION DURING THE PROCEDURE POST PROCEDURE NOTE THE PATIENT WILL BE SEEN IN A FOLLOW UP IN THE NEXT FEW WEEKS. INSTRUCTIONS WERE GIVEN, QUESTIONS WERE ANSWERED, AND THE PATIENT EXPRESSED UNDERSTANDING AND AGREES WITH THE PLAN. I, LYRIC GARCIA, DOCUMENTED THE ABOVE INFORMATION ACTING A SCRIBE FOR DR. AYERS. I HAVE REVIEWED THE ABOVE DOCUMENT, WRITTEN BY LYRIC GARCIA SCRIBNahomi AND I VERIFY THAT IT IS ACCURATE. PROCEDURE CODES 54109 INJECT TRIGGER POINTS 3/> DISPOSITION & COMMUNICATION FOLLOW UP 3 WEEKS ELECTRONICALLY SIGNED BY RUTHY AYERS MD ON 06/24/2016 AT 05:58 PM EDT DISCLAIMER : THIS IS A VISIT SUMMARY EXTRACTED FROM THE [employer] CHART. IT IS NOT A COPY OF THE [employer] PROGRESS NOTE. JOSE
== END ==
LOC: M PAIN 15:20
PROVIDERS: ATTEND Anesthesiology
DX: G89.29 Other chronic pain (principal); M79.1 Myalgia; M54.2 Cervicalgia; M25.511 Pain in right shoulder; M25.512 Pain in left shoulder; E03.9 Hypothyroidism, unspecified; K21.9 Gastro-esophageal reflux disease without esophagitis; F41.9 Anxiety disorder, unspecified; F32.9 Major depressive disorder, single episode, unspecified; M35.00 Sjogren syndrome, unspecified; Z88.8 Allergy status to other drugs, medicaments and biological substances; Z79.82 Long term (current) use of aspirin; Z79.891 Long term (current) use of opiate analgesic; Z79.899 Other long term (current) drug therapy; Z86.59 Personal history of other mental and behavioral disorders
CPT/HCPCS: 20553; J3301

== ENCOUNTER → 2016-06-29 | Outpatient (CLI) | payer OTHER ==
[~2016-06-29] MED LIST changes: -BUPIVACAINE HCL 0.25% 10 ML VIAL As Ordered ONE; -BUPIVACAINE HCL 0.25% 30 ML VIAL As Ordered ONE; -TRIAMCINOLONE ACETONIDE SUSP 40 MG/ML VIAL (J3301) As Ordered ONE; -diazePAM 5 MG TAB As Ordered ONE; -oxyCODONE 5MG TAB As Ordered ONE
== END ==
LOC: M ADAMS 15:07
PROVIDERS: ATTEND Physician Assistant Medical
DX: E89.0 Postprocedural hypothyroidism (principal)

== ENCOUNTER → 2016-07-26 | Outpatient (CLI) | payer OTHER ==
--- NOTE | 2016-07-30 23:14 | ECWPNPC ---
PATIENT NAME: EVERETT BUSTILLO : 1965 GENDER: FEMALE VISIT DATE: 07/26/2016 DISCHARGE DATE: 07/26/16 1149 VISIT LOCKED DATE TIME: PHYSICIAN: ARMAND AUGUSTE PHYSICIAN PAGER NO: [phone] RESOURCE: ARMAND AUGUSTE HISTORY OF PRESENT ILLNESS HISTORY OF PRESENT ILLNESS: PAIN THE PATIENT DESCRIBES THE PAIN... FALL RISK SCREENING: SCREENING :NO FALLS IN THE PAST YEAR TODAY'S VISIT: NOTES: RATES PAIN LEVEL TODAY 2/10. REPORTS HER HIP AND BACK PAIN ARE &QUOT;GETTING WORSE&QUOT;. IS S/P TRIGGER POIT INJECTIONS TO BILATERAL NECK AND SHOULDERS. REPORTS SOME DISCOMFORT ACROSS THE RIGHT SHOULDER AND NECK REGION.. CURRENT MEDICATIONS TAKING MULTIVITAMINS OTC TABLET 1 TABLET ORALLY ONCE A DAY, NOTES: 121 TAKING BIOTIN OTC TABLET 1 TABLET ORALLY ONCE A DAY, NOTES: 729 TAKING FLONASE 50 MCG/ACT SUSPENSION 1 PUFF IN EACH NOSTRIL NASALLY ONCE A DAY NEEDED, NOTES: 729 TAKING CLARITIN 10 MG TABLET 1 TABLET ORALLY ONCE A DAY, NOTES: 06/19/16@2100 TAKING LEVOTHYROXINE SODIUM 88 MCG TABLET 1 TABLET ORALLY ONCE A DAY, NOTES: 729 TAKING BLACK COHOSH 40 MG CAPSULE ORALLY DAILY, NOTES: 729 TAKING ZOFRAN ODT 4 MG TABLET DISPERSIBLE 1 TABLET ON THE TONGUE AND ALLOW TO DISSOLVE ORALLY EVERY 8 HRS PRN NAUSEA, NOTES: 1 MONTH AGO TAKING ASPIRIN CHILDRENS 81 MG TABLET CHEWABLE 1 TABLET ORALLY ONCE A DAY, NOTES: 06/19/16@2200 TAKING ACYCLOVIR 400 MG TABLET 1 TABLET ORALLY TWICE A DAY, NOTES: 729 TAKING VALTREX 500MG TABLET 1 TAB PLANNED PARENTHOOD ORALLY BID, NOTES: 1 WEEK TAKING OMEPRAZOLE 20MG 20MG TABLET 1 TAB BEFORE MEAL ORAL ONCE A DAY, NOTES: 121 TAKING ACIDOPHILUS - TABLET 1 TAB ORALLY DAILY, NOTES: 729 TAKING PERCOCET 5-325 MG TABLET 1 TABLET ORALLY ONCE PER DAY MDD=1 FOR PAIN NEEDED, NOTES: 2 DAYS AGO TAKING PENLAC 8% SOLUTION 1 DROP TO AFFECTED TOE NAILS DAILY, CLEAN OFF WITH ALCOHOL EVERY 7 DAYS EXTERNALLY ONCE A DAY, NOTES: 1 MONTH AGO NOT-TAKING OMEPRAZOLE 20 MG CAPSULE DELAYED RELEASE TAKE ONE CAPSULE BY MOUTH EVERY DAY BEFORE A MEAL MEDICATION LIST REVIEWED AND RECONCILED WITH THE PATIENT PAST MEDICAL HISTORY HYPOTHYROIDISM ESOPHAGEAL REFLUX HS 2 DEPRESSION/ANXIETY SUBSTANCE ABUSE BARTHOLIN'S GLAND CYST SKIN CA NOSE--? BCCA ECHO 07/16: NORMAL (EF75%, NO ABNL) HOLTER 09/15: NORMAL, WAS IN NSR DURING SYMPTOMS ABPM 10/16:MEAN SBP 130S +RF 06/17, MILD RA SX (SEE 06/17 NOTE) DERMOID CYST RT PELVIS CT 2016 SJOGREN'S ALLERGIES DEMEROL: NAUSEA/VOMITING: ALLERGY REGLAN: EKG ABNORMALITIES: ALLERGY PREMPRO: PALPITATIONS: SIDE EFFECTS REVIEW OF SYSTEMS CONSTITUTIONAL: ANY CHANGE IN YOUR MEDICAL CONDITION? NO . CHILLS NO . FEVER NO . INFECTION: DO YOU HAVE NEW INFECTIONS? YES,SINUS . DO YOU HAVE HISTORY OF MRSA? NO . MUSCULOSKELETAL: ANY NEW PATTERNS OF PAIN OR NUMBNESS? YES . GASTROENTEROLOGY: ANY NEW CHANGE IN BOWEL CONTROL? NO . GENITOURINARY: ANY NEW CHANGE IN BLADDER CONTROL? NO . IS THERE A CHANCE YOU COULD BE ? NO . HEMATOLOGY/LYMPH: DO YOU TAKE ANY BLOOD THINNERS? (FOR EXAMPLE- COUMADIN, PLAVIX, AGGRENOX, PLATEL, PRADAXA, OR XARELTO) NO . WHEN WAS YOUR LAST DOSE? DATE: TIME: . NEUROLOGY: HAVE YOU FALLEN IN THE PAST 6 MONTHS? NO . ANY NEW EXTREMITY NUMBNESS OR WEAKNESS? NO . CARDIOLOGY: DO YOU HAVE A PACEMAKER OR DEFIBRILLATOR? NO . RESPIRATORY: HAVE YOU BEEN SICK IN THE PAST WEEK? NO . FEVER NO . FLU LIKE SYMPTOMS? NO . COUGH NO . INTEGUMENTARY: DO YOU HAVE ANY RASHES OR OPEN SORES? NO . ALLERGIC/IMMUNO: ARE YOU ALLERGIC TO SHELLFISH OR IV DYE? NO . ANY NEW ALLERGIES? NO . PSYCHIATRIC: DO YOU HAVE THOUGHTS OF HURTING YOURSELF OR SOMEONE ELSE? NO . ARE YOU ABUSED, NEGLECTED, OR IN AN UNSAFE ENVIRONMENT? NO . ENDOCRINOLOGY: ARE YOU DIABETIC? NO . OTHER: DO YOU NEED ANY PRESCRIPTIONS? YES . IF YES, PLEASE LIST: ____PERCOCET . ANY NEW PROBLEMS WITH YOUR MEDICATIONS? NO . WHEN DID YOU LAST EAT? ____ . WHEN DID YOU LAST DRINK? ____ . WHAT DID YOU LAST DRINK? ____ . NAME OF PERSON DRIVING YOU HOME? ____ . DO YOU HAVE ANY OTHER QUESTIONS OR CONCERNS YES,HIP AND LOWER BACK GETTING WORSE . REVIEWED BY: PROVIDER: ARMAND HOLLOWAY . VITAL SIGNS WT 112.8 LBS, HT 63 IN, BMI 19.98 INDEX, BP 119/76 MM HG, HR 79 /MIN, RR 16 /MIN, TEMP 98.6 F, OXYGEN SAT % 97%, NA INITIALS SC 10:58, REVIEWED BY: VD. EXAMINATION GENERAL EXAMINATION: PSYCHALERT , ORIENTED X 3 , APPROPRIATE MOOD AND AFFECT, FRUSTRATED . LUNGS:CLEAR TO AUSCULTATION BILATERALLY. HEART:HEART RATE REGULAR. MUSCULOSKELETAL:POINT THENDERNESS OVER RIGHT LUMBAR FACETS AND SACRUM., TRIGGER POINTS:, ELICITED WITH PALPATION OVER LUMBAR PARAVERTEBRAL MUSCLES AND INTO THE SECRUM. RESTRICTION OF ROM IN THIS AREA. GAIT ANTALGIC. JOINTS:RIGHT , KNEE , TENDER, WITH RANGE OF MOTION . NO WARMTH OR SWELLING NOTED TODAY. ASSESSMENTS MYALGIA - M79.1 (PRIMARY) CERVICALGIA - M54.2 LUMBAR FACET ARTHROPATHY - M12.88 RHEUMATOID ARTHRITIS INVOLVING MULTIPLE SITES WITH POSITIVE RHEUMATOID FACTOR - M05.79 TREATMENT MYALGIA REFILL PERCOCET TABLET, 5-325 MG, 1 TABLET, ORALLY, ONCE PER DAY MDD=1 FOR PAIN NEEDED, 30 DAYS, 20, REFILLS 0, NOTES: 2 DAYS AGO TRIGGER POINT 3 + ARMAND GUERRERO 07/26/2016 11:38:14 AM > LOW BACK/SACRUM RIGHT SIDE NOTES: USE TENNIS BALL TO APPLY PRESSURE TO TENDER POINTS ON BACK/NECK AREA. BRING PAIN MEDS TO EVERY VISIT. REFERRAL TO:[facility] REASON:POSITIVE RHEUMATOID FACTOR, JOINT PAIN SWELLING PREVENTIVE MEDICINE TRIGGER POINT INJECTIONS INFORMATION LENNY IGLESIAS. PROCEDURE CODES FA211 ESTABILISHED PATIENT [facility] FAC[facility] CHARGE DISPOSITION & COMMUNICATION FOLLOW UP AFTER INJECTION (REASON: CHECK AUTH FOR TPI LOW BACK, RIGHT) ELECTRONICALLY SIGNED BY SAVITA ALAS ON 07/30/2016 AT 02:23 PM EDT DISCLAIMER : THIS IS A VISIT SUMMARY EXTRACTED FROM THE [employer] CHART. IT IS NOT A COPY OF THE [employer] PROGRESS NOTE. JOSE
== END ==
LOC: M PAIN 10:40
PROVIDERS: ATTEND Nurse Practitioner Family
DX: G89.29 Other chronic pain (principal); M79.1 Myalgia; M54.2 Cervicalgia; M12.88 Other specific arthropathies, not elsewhere classified, other specified site; M05.79 Rheumatoid arthritis with rheumatoid factor of multiple sites without organ or systems involvement; E03.9 Hypothyroidism, unspecified; K21.9 Gastro-esophageal reflux disease without esophagitis; F32.9 Major depressive disorder, single episode, unspecified; F41.9 Anxiety disorder, unspecified; F43.22 Adjustment disorder with anxiety; M35.00 Sjogren syndrome, unspecified; I51.7 Cardiomegaly; Z88.5 Allergy status to narcotic agent; Z88.8 Allergy status to other drugs, medicaments and biological substances; Z79.82 Long term (current) use of aspirin; Z79.891 Long term (current) use of opiate analgesic; Z79.899 Other long term (current) drug therapy; Z86.59 Personal history of other mental and behavioral disorders

== ENCOUNTER → 2016-08-16 | Outpatient (CLI) | payer OTHER ==
[~2016-08-16] MED LIST changes: +BUPIVACAINE HCL 0.25% 10 ML VIAL As Ordered ONE; +BUPIVACAINE HCL 0.25% 30 ML VIAL As Ordered ONE; +TRIAMCINOLONE ACETONIDE SUSP 40 MG/ML VIAL (J3301) As Ordered ONE; +diazePAM 5 MG TAB As Ordered ONE; +oxyCODONE 5MG TAB As Ordered ONE
--- NOTE | 2016-08-24 00:44 | ECWPNPC ---
PATIENT NAME: EVERETT BUSTILLO : 1965 GENDER: FEMALE VISIT DATE: 08/16/2016 DISCHARGE DATE: 08/16/16 1308 VISIT LOCKED DATE TIME: PHYSICIAN: RUTHY AYERS PHYSICIAN PAGER NO: [phone] RESOURCE: RUTHY AYERS REASON FOR APPOINTMENT 1. LOW BACK HISTORY OF PRESENT ILLNESS HISTORY OF PRESENT ILLNESS: PAIN THE PATIENT DESCRIBES THE PAIN... FALL RISK SCREENING: SCREENING :NO FALLS IN THE PAST YEAR CURRENT MEDICATIONS TAKING MULTIVITAMINS OTC TABLET 1 TABLET ORALLY ONCE A DAY, NOTES: 2 DAYS AGO TAKING BIOTIN OTC TABLET 1 TABLET ORALLY ONCE A DAY, NOTES: 629 TAKING FLONASE 50 MCG/ACT SUSPENSION 1 PUFF IN EACH NOSTRIL NASALLY ONCE A DAY NEEDED, NOTES: 729 TAKING CLARITIN 10 MG TABLET 1 TABLET ORALLY ONCE A DAY, NOTES: 08/15/16@2200 TAKING LEVOTHYROXINE SODIUM 88 MCG TABLET 1 TABLET ORALLY ONCE A DAY, NOTES: 629 TAKING BLACK COHOSH 40 MG CAPSULE ORALLY DAILY, NOTES: 629 TAKING ZOFRAN ODT 4 MG TABLET DISPERSIBLE 1 TABLET ON THE TONGUE AND ALLOW TO DISSOLVE ORALLY EVERY 8 HRS PRN NAUSEA, NOTES: 5 DAYS AGO TAKING ASPIRIN CHILDRENS 81 MG TABLET CHEWABLE 1 TABLET ORALLY ONCE A DAY, NOTES: 3 WEEKS AGO TAKING ACYCLOVIR 400 MG TABLET 1 TABLET ORALLY TWICE A DAY, NOTES: 3 DAYS AGO TAKING VALTREX 500MG TABLET 1 TAB PLANNED PARENTHOOD ORALLY BID, NOTES: 30 TAKING OMEPRAZOLE 20MG 20MG TABLET 1 TAB BEFORE MEAL ORAL ONCE A DAY, NOTES: 3 DAYS AGO TAKING ACIDOPHILUS - TABLET 1 TAB ORALLY DAILY, NOTES: 1 MONTH AGO TAKING PENLAC 8% SOLUTION 1 DROP TO AFFECTED TOE NAILS DAILY, CLEAN OFF WITH ALCOHOL EVERY 7 DAYS EXTERNALLY ONCE A DAY, NOTES: 6 DAYS AGO TAKING PERCOCET 5-325 MG TABLET 1 TABLET ORALLY ONCE PER DAY MDD=1 FOR PAIN NEEDED, NOTES: 2 DAYS AGO TAKING ESTROVEN MENOPAUSE RELIEF - CAPSULE ORALLY , NOTES: 08/15/16@1900 NOT-TAKING OMEPRAZOLE 20 MG CAPSULE DELAYED RELEASE TAKE ONE CAPSULE BY MOUTH EVERY DAY BEFORE A MEAL MEDICATION LIST REVIEWED AND RECONCILED WITH THE PATIENT PAST MEDICAL HISTORY HYPOTHYROIDISM ESOPHAGEAL REFLUX HS 2 DEPRESSION/ANXIETY SUBSTANCE ABUSE BARTHOLIN'S GLAND CYST SKIN CA NOSE--? BCCA ECHO 07/16: NORMAL (EF75%, NO ABNL) HOLTER 09/15: NORMAL, WAS IN NSR DURING SYMPTOMS ABPM 10/16:MEAN SBP 130S +RF 06/17, MILD RA SX (SEE 06/17 NOTE) DERMOID CYST RT PELVIS CT 2015 SJOGREN'S ALLERGIES DEMEROL: NAUSEA/VOMITING: ALLERGY REGLAN: EKG ABNORMALITIES: ALLERGY PREMPRO: PALPITATIONS: SIDE EFFECTS REVIEW OF SYSTEMS REVIEWED BY: PROVIDER: . CONSTITUTIONAL: ANY CHANGE IN YOUR MEDICAL CONDITION? NO . CHILLS NO . FEVER NO . INFECTION: DO YOU HAVE NEW INFECTIONS? NO . DO YOU HAVE HISTORY OF MRSA? NO . MUSCULOSKELETAL: ANY NEW PATTERNS OF PAIN OR NUMBNESS? YES . GASTROENTEROLOGY: ANY NEW CHANGE IN BOWEL CONTROL? NO . GENITOURINARY: ANY NEW CHANGE IN BLADDER CONTROL? NO . IS THERE A CHANCE YOU COULD BE ? NO . HEMATOLOGY/LYMPH: DO YOU TAKE ANY BLOOD THINNERS? (FOR EXAMPLE- COUMADIN, PLAVIX, AGGRENOX, PLATEL, PRADAXA, OR XARELTO) NO . WHEN WAS YOUR LAST DOSE? DATE: TIME: . NEUROLOGY: HAVE YOU FALLEN IN THE PAST 6 MONTHS? NO . ANY NEW EXTREMITY NUMBNESS OR WEAKNESS? NO . CARDIOLOGY: DO YOU HAVE A PACEMAKER OR DEFIBRILLATOR? NO . RESPIRATORY: HAVE YOU BEEN SICK IN THE PAST WEEK? NO . FEVER NO . FLU LIKE SYMPTOMS? NO . COUGH NO . INTEGUMENTARY: DO YOU HAVE ANY RASHES OR OPEN SORES? NO . ALLERGIC/IMMUNO: ARE YOU ALLERGIC TO SHELLFISH OR IV DYE? NO . ANY NEW ALLERGIES? NO . PSYCHIATRIC: DO YOU HAVE THOUGHTS OF HURTING YOURSELF OR SOMEONE ELSE? NO . ARE YOU ABUSED, NEGLECTED, OR IN AN UNSAFE ENVIRONMENT? NO . ENDOCRINOLOGY: ARE YOU DIABETIC? NO . OTHER: DO YOU NEED ANY PRESCRIPTIONS? YES . IF YES, PLEASE LIST: ____OXYCODONE . ANY NEW PROBLEMS WITH YOUR MEDICATIONS? NO . WHEN DID YOU LAST EAT? ____0230 . WHEN DID YOU LAST DRINK? ____0850 . WHAT DID YOU LAST DRINK? ____CHICKEN BROTH,WATER . NAME OF PERSON DRIVING YOU HOME? ____[employer] . DO YOU HAVE ANY OTHER QUESTIONS OR CONCERNS NO . VITAL SIGNS WT 111.4 LBS, HT 63 IN, BMI 19.73 INDEX, BP 139/82 MM HG, HR 90 /MIN, RR 16 /MIN, TEMP 98.2 F, OXYGEN SAT % 100%, NA INITIALS TL 1103, REVIEWED BY: VD. ASSESSMENTS MYALGIA - M79.1 (PRIMARY) PROCEDURES PN TRIGGER POINT INJECTION WITH STEROIDS PRE PROCEDURE DIAGNOSIS 1. MYALGIA 2. PAIN AT LEFT THORACIC AREA AND LEFT LOWER BACK AREA POST PROCEDURE DIAGNOSIS 1. MYALGIA 2. PAIN AT LEFT THORACIC AREA AND LEFT LOWER BACK AREA PROCEDURE TRIGGER POINT INJECTION AT LEFT THORACIC AREA AND LEFT LOWER BACK AREA SURGEON DR. RUTHY AYERS ORNAMENTER NONE ANESTHESIA LOCAL PRE PROCEDURE NOTE THE PATIENT HAS A HISTORY OF CHRONIC PAIN AT THE LEFT THORACIC AREA AND LEFT LOWER BACK AREA. I EVALUATE THE PATIENT AND REVIEWED THE CHART. THERE IS EVIDENCE OF BANDS OF TISSUE WITH RESTRICTION OF MOVEMENT AND PRESENCE OF TRIGGER POINT AT THE AFFECTED AREA. I WENT OVER THE RISKS, ALTERNATIVES, AND BENEFITS ASSOCIATED WITH THIS PROCEDURE. THE PATIENT WOULD LIKE TO PROCEED AND GIVE CONSENT TO PERFORMED THE PROCEDURE. THE PATIENT DENIES UNEXPLAINABLE WEIGHT LOSS, FEVER, CHILLS, OR NEW CHANGES IN URINARY OR BOWEL CONTROL DESCRIPTION OF PROCEDURE THE PATIENT WAS BROUGHT TO THE PROCEDURE ROOM AND PLACED IN THE SITTING POSITION. THE AREA WAS CLEANED WITH ALCOHOL. THE PROCEDURE WAS DONE USING ASEPTIC STERILE TECHNIQUE. I CHECKED LATERALITY AND THE LEVEL WHERE THE PROCEDURE WAS GOING TO BE PERFORMED WITH THE PATIENT AND THE SUPPORTING STAFF AT THE MOMENT OF THE TIME OUT IN THE PROCEDURE ROOM. USING A 25-GAUGE NEEDLE, TRIGGER POINTS WERE INJECTED AT THE LEFT THORACIC AREA AND LEFT LOWER BACK AREA WITH A TOTAL OF 40 ML OF BUPIVACAINE 0.25% AND KENALOG 40 MG. THERE WAS NO EVIDENCE OF BLOOD, PARESTHESIA OR CEREBROSPINAL FLUID DURING THE PROCEDURE. THE PATIENT WAS SENT TO THE RECOVERY ROOM. THE PATIENT WAS MOVING THE EXTREMITIES AND DOING WELL. THERE WAS NO COMPLICATION DURING THE PROCEDURE POST PROCEDURE NOTE THE PATIENT WILL BE SEEN IN A FOLLOW UP IN THE NEXT FEW WEEKS. INSTRUCTIONS WERE GIVEN, QUESTIONS WERE ANSWERED, AND THE PATIENT EXPRESSED UNDERSTANDING AND AGREES WITH THE PLAN. I, SABIHA KEVIN, DOCUMENTED THE ABOVE INFORMATION ACTING A SCRIBE FOR DR. AYERS. I HAVE REVIEWED THE ABOVE DOCUMENT, WRITTEN BY SABIHA MO AND I VERIFY THAT IT IS ACCURATE PROCEDURE CODES 45405 INJ TRIGGER POINT 03/05 [facility] [place] DIS[place]ITION & COMMUNICATION FOLLOW UP 3 WEEKS ELECTRONICALLY SIGNED BY RUTHY AYERS MD ON 08/23/2016 AT 12:24 PM EDT DISCLAIMER : THIS IS A VISIT SUMMARY EXTRACTED FROM THE [email or web address] CHART. IT IS NOT A COPY OF THE [email or web address] PROGRESS NOTE. JOSE
== END ==
LOC: M PAIN 11:00
PROVIDERS: ATTEND Anesthesiology
DX: G89.29 Other chronic pain (principal); M79.1 Myalgia; M54.6 Pain in thoracic spine; M54.5 Low back pain; E03.9 Hypothyroidism, unspecified; K21.9 Gastro-esophageal reflux disease without esophagitis; J30.9 Allergic rhinitis, unspecified; R76.8 Other specified abnormal immunological findings in serum; F43.22 Adjustment disorder with anxiety; F32.9 Major depressive disorder, single episode, unspecified; I51.7 Cardiomegaly; M05.79 Rheumatoid arthritis with rheumatoid factor of multiple sites without organ or systems involvement; M35.00 Sjogren syndrome, unspecified; Z88.5 Allergy status to narcotic agent; Z88.8 Allergy status to other drugs, medicaments and biological substances; Z79.82 Long term (current) use of aspirin; Z79.899 Other long term (current) drug therapy; Z86.59 Personal history of other mental and behavioral disorders

== ENCOUNTER → 2016-09-06 | Outpatient (CLI) | payer OTHER ==
[~2016-09-06] MED LIST changes: +ASPI-161 PO; -ASPI1TAB24 PO; -BUPIVACAINE HCL 0.25% 10 ML VIAL As Ordered ONE; -BUPIVACAINE HCL 0.25% 30 ML VIAL As Ordered ONE; -COLA100C3 PO; +COLA100C5 PO; +IBUP-1022 PO; -IBUP600T26 PO; -TRIAMCINOLONE ACETONIDE SUSP 40 MG/ML VIAL (J3301) As Ordered ONE; -diazePAM 5 MG TAB As Ordered ONE; -oxyCODONE 5MG TAB As Ordered ONE
--- NOTE | 2016-09-21 00:15 | ECWPNPC ---
PATIENT NAME: EVERETT BUSTILLO : 1965 GENDER: FEMALE VISIT DATE: 09/06/2016 DISCHARGE DATE: 09/06/16 1103 VISIT LOCKED DATE TIME: PHYSICIAN: ARMAND AUGUSTE PHYSICIAN PAGER NO: [phone] RESOURCE: ARMAND AUGUSTE REASON FOR APPOINTMENT 1. POST TPI HISTORY OF PRESENT ILLNESS HISTORY OF PRESENT ILLNESS: PAIN THE PATIENT DESCRIBES THE PAIN... FALL RISK SCREENING: SCREENING :NO FALLS IN THE PAST YEAR TODAY'S VISIT: NOTES: RATES PAIN LEVEL TODAY 2/10. DESCRIBES PAIN IS S/P TPI WITH STEROIDS COMPLETED TO LEFT THORACIC AND LOW BACK AREA ON 08/16/16. HAD SURJIT 100 % PAIN RELIEF IN THE AREA AND THEN BEGAN HAVING MORE INTERMITTANT DISCOMFORT OVER LEFT HIP/SACRAN BONE AREA. FEELING LIKE THE LEFT IS ELEVATED. . CURRENT MEDICATIONS TAKING MULTIVITAMINS OTC TABLET 1 TABLET ORALLY ONCE A DAY TAKING BIOTIN OTC TABLET 1 TABLET ORALLY ONCE A DAY TAKING FLONASE 50 MCG/ACT SUSPENSION 1 PUFF IN EACH NOSTRIL NASALLY ONCE A DAY NEEDED TAKING CLARITIN 10 MG TABLET 1 TABLET ORALLY ONCE A DAY TAKING LEVOTHYROXINE SODIUM 88 MCG TABLET 1 TABLET ORALLY ONCE A DAY TAKING BLACK COHOSH 40 MG CAPSULE ORALLY DAILY TAKING ZOFRAN ODT 4 MG TABLET DISPERSIBLE 1 TABLET ON THE TONGUE AND ALLOW TO DISSOLVE ORALLY EVERY 8 HRS PRN NAUSEA TAKING ASPIRIN CHILDRENS 81 MG TABLET CHEWABLE 1 TABLET ORALLY ONCE A DAY TAKING ACYCLOVIR 400 MG TABLET 1 TABLET ORALLY TWICE A DAY TAKING VALTREX 500MG TABLET 1 TAB PLANNED PARENTHOOD ORALLY BID TAKING OMEPRAZOLE 20MG 20MG TABLET 1 TAB BEFORE MEAL ORAL ONCE A DAY TAKING ACIDOPHILUS - TABLET 1 TAB ORALLY DAILY TAKING PENLAC 8% SOLUTION 1 DROP TO AFFECTED TOE NAILS DAILY, CLEAN OFF WITH ALCOHOL EVERY 7 DAYS EXTERNALLY ONCE A DAY TAKING ESTROVEN MENOPAUSE RELIEF - CAPSULE ORALLY TAKING PERCOCET 5-325 MG TABLET 1 TABLET ORALLY ONCE PER DAY MDD=1 FOR PAIN NEEDED NOT-TAKING OMEPRAZOLE 20 MG CAPSULE DELAYED RELEASE TAKE ONE CAPSULE BY MOUTH EVERY DAY BEFORE A MEAL MEDICATION LIST REVIEWED AND RECONCILED WITH THE PATIENT PAST MEDICAL HISTORY HYPOTHYROIDISM ESOPHAGEAL REFLUX HS 2 DEPRESSION/ANXIETY SUBSTANCE ABUSE BARTHOLIN'S GLAND CYST SKIN CA NOSE--? BCCA ECHO 07/16: NORMAL (EF75%, NO ABNL) HOLTER 09/15: NORMAL, WAS IN NSR DURING SYMPTOMS ABPM 10/16:MEAN SBP 130S +RF 06/17, MILD RA SX (SEE 06/17 NOTE) DERMOID CYST RT PELVIS CT 2016 SJOGREN'S ALLERGIES DEMEROL: NAUSEA/VOMITING: ALLERGY REGLAN: EKG ABNORMALITIES: ALLERGY PREMPRO: PALPITATIONS: SIDE EFFECTS SOCIAL HISTORY GENERAL: PAIN CLINIC PFS, CLERGY, PUBLIC HEALTH REFERRALS PFS REFERRAL NEEDED?NO CLERGY REFERRAL NEEDED?NO PUBLIC HEALTH REFERRAL NEEDED?NO WAS THE PROVIDER NOTIFIED OF ANY PERTINENT INFO?NO HAS THE PATIENT BEEN EDUCATED REGARDING HIS/HER PLAN OF CARE?YES HAS THE PATIENT BEEN EDUCATED REGARDING PAIN, THE RISK FOR PAIN, THE IMPORTANCE OF EFFECTIVE PAIN MANAGEMENT, AND THE PAIN ASSESSMENT PROCESS?YES PATIENT: ____. REVIEWED, NO CHANGES. REVIEW OF SYSTEMS REVIEWED BY: PROVIDER: ARMAND HOLLOWAY . CONSTITUTIONAL: ANY CHANGE IN YOUR MEDICAL CONDITION? NO . CHILLS NO . FEVER NO . INFECTION: DO YOU HAVE NEW INFECTIONS? NO . DO YOU HAVE HISTORY OF MRSA? NO . MUSCULOSKELETAL: ANY NEW PATTERNS OF PAIN OR NUMBNESS? NO . GASTROENTEROLOGY: ANY NEW CHANGE IN BOWEL CONTROL? NO . GENITOURINARY: ANY NEW CHANGE IN BLADDER CONTROL? NO . IS THERE A CHANCE YOU COULD BE ? NO . HEMATOLOGY/LYMPH: DO YOU TAKE ANY BLOOD THINNERS? (FOR EXAMPLE- COUMADIN, PLAVIX, AGGRENOX, PLATEL, PRADAXA, OR XARELTO) NO . WHEN WAS YOUR LAST DOSE? DATE: TIME: . NEUROLOGY: HAVE YOU FALLEN IN THE PAST 6 MONTHS? NO . ANY NEW EXTREMITY NUMBNESS OR WEAKNESS? NO . CARDIOLOGY: DO YOU HAVE A PACEMAKER OR DEFIBRILLATOR? NO . RESPIRATORY: HAVE YOU BEEN SICK IN THE PAST WEEK? NO . FEVER NO . FLU LIKE SYMPTOMS? NO . COUGH NO . INTEGUMENTARY: DO YOU HAVE ANY RASHES OR OPEN SORES? NO . ALLERGIC/IMMUNO: ARE YOU ALLERGIC TO SHELLFISH OR IV DYE? NO . ANY NEW ALLERGIES? NO . PSYCHIATRIC: DO YOU HAVE THOUGHTS OF HURTING YOURSELF OR SOMEONE ELSE? NO . ARE YOU ABUSED, NEGLECTED, OR IN AN UNSAFE ENVIRONMENT? NO . ENDOCRINOLOGY: ARE YOU DIABETIC? NO . OTHER: DO YOU NEED ANY PRESCRIPTIONS? NO . IF YES, PLEASE LIST: ____ . ANY NEW PROBLEMS WITH YOUR MEDICATIONS? NO . WHEN DID YOU LAST EAT? ____ . WHEN DID YOU LAST DRINK? ____ . WHAT DID YOU LAST DRINK? ____ . NAME OF PERSON DRIVING YOU HOME? ____ . DO YOU HAVE ANY OTHER QUESTIONS OR CONCERNS NO . VITAL SIGNS WT 110.4 LBS, HT 63 IN, BMI 19.55 INDEX, BP 137/70 MM HG, HR 74 /MIN, RR 16 /MIN, TEMP 98.4 F, OXYGEN SAT % 100%, NA INITIALS TL 1013, REVIEWED BY: SHAUNA. EXAMINATION GENERAL EXAMINATION: PSYCHALERT , ORIENTED X 3 , APPROPRIATE MOOD AND AFFECT, FRUSTRATED . LUNGS:CLEAR TO AUSCULTATION BILATERALLY. HEART:HEART RATE REGULAR. MUSCULOSKELETAL:MILD TENDERNESS OVER LEFT LUMBAR FACETS AND SACRUM., FEW TRIGGER POINTS:, ELICITED WITH PALPATION OVER LUMBAR PARAVERTEBRAL MUSCLES AND INTO THE SACRUM. SLIGHT ELEVATION OF LEFT HIP WITH AMBULATION. JOINTS:RIGHT , KNEE , TENDER, WITH RANGE OF MOTION . NO WARMTH OR SWELLING NOTED TODAY. ASSESSMENTS MYALGIA - M79.1 (PRIMARY) CHRONIC PRESCRIPTION OPIATE USE - Z79.891 TREATMENT MYALGIA NOTES: CONTINUE TENNIS BALL TO APPLY PRESSURE. CONSIDER POOL TO STRETCH LOW BACK. GENTLE TRACTION TO LEFT LEG.UTOX TODAY. CLINICAL NOTES: ISTOP REGISTRY REVIEWED AND DEMNOSTRATES COMPLLIANCE. BRINGS IN MEDICATIONS WHICH IS APPROPRIATE FOR WHAT WAS DISPENSED. PROCEDURE CODES FA211 ESTABILISHED PATIENT [facility] FACILITY CHARGE DISPOSITION & COMMUNICATION FOLLOW UP 6-8 WEEKS (REASON: LOW BACK KOLBY) ELECTRONICALLY SIGNED BY SAVITA ALAS ON 09/20/2016 AT 08:01 PM EDT DISCLAIMER : THIS IS A VISIT SUMMARY EXTRACTED FROM THE [employer] CHART. IT IS NOT A COPY OF THE [employer] PROGRESS NOTE. JOSE
== END ==
LOC: M PAIN 10:20
PROVIDERS: ATTEND Nurse Practitioner Family
DX: G89.29 Other chronic pain (principal); M54.5 Low back pain; M54.6 Pain in thoracic spine; M79.1 Myalgia; E03.9 Hypothyroidism, unspecified; F32.9 Major depressive disorder, single episode, unspecified; F41.9 Anxiety disorder, unspecified; M35.00 Sjogren syndrome, unspecified; J30.9 Allergic rhinitis, unspecified; Z88.8 Allergy status to other drugs, medicaments and biological substances; Z79.82 Long term (current) use of aspirin; Z79.891 Long term (current) use of opiate analgesic; Z79.899 Other long term (current) drug therapy; Z86.59 Personal history of other mental and behavioral disorders

== ENCOUNTER → 2016-09-11 | Outpatient (CLI) | payer OTHER ==
--- NOTE | 2016-09-12 02:15 | REP ---
Local: Contusion. Technique: AP, lateral, bilateral oblique views of the right foot. Findings: Transverse fracture of the fifth toe proximal phalanx with subtle angulation. Overlying soft tissue swelling. No subcutaneous emphysema or radiodense foreign body. Remainder examination demonstrates age-related degenerative changes primarily involving the interphalangeal joints and tarsometatarsal joints. Impression: Fracture of the fifth toe proximal phalanx with subtle angulation and mild soft tissue swelling Signed by Tom Ritter MD 09/12/2016 02:06 A
== END ==
LOC: M ADAMS 19:35
PROVIDERS: ATTEND Physician Assistant Medical
DX: S90.31XA Contusion of right foot, initial encounter (principal); W18.30XA Fall on same level, unspecified, initial encounter; Y92.009 Unspecified place in unspecified non-institutional (private) residence as the place of occurrence of the external cause

== ENCOUNTER → 2016-10-18 | Outpatient (CLI) | payer OTHER ==
--- NOTE | 2016-11-02 00:55 | ECWPNPC ---
PATIENT NAME: EVERETT BUSTILLO : 1965 GENDER: FEMALE VISIT DATE: 10/18/2016 DISCHARGE DATE: 10/18/16 1015 VISIT LOCKED DATE TIME: PHYSICIAN: ARMAND AUGUSTE PHYSICIAN PAGER NO: [phone] RESOURCE: ARMAND AUGUSTE REASON FOR APPOINTMENT 1. LOW BACK KOLBY HISTORY OF PRESENT ILLNESS HISTORY OF PRESENT ILLNESS: PAIN THE PATIENT DESCRIBES THE PAIN... FALL RISK SCREENING: SCREENING :NO FALLS IN THE PAST YEAR TODAY'S VISIT: NOTES: RATES PAIN LEVEL TODAY 4/10. NOTES PAIN IS CENTERED OVER BOTH SHOULDERS AND OVER LEFT HIP AND BUTTUCK. INCREASED PAIN, STIFFNESS NOTED RIGHT KNEE. CURRENT MEDICATIONS TAKING MULTIVITAMINS OTC TABLET 1 TABLET ORALLY ONCE A DAY TAKING BIOTIN OTC TABLET 1 TABLET ORALLY ONCE A DAY TAKING FLONASE 50 MCG/ACT SUSPENSION 1 PUFF IN EACH NOSTRIL NASALLY ONCE A DAY NEEDED TAKING CLARITIN 10 MG TABLET 1 TABLET ORALLY ONCE A DAY TAKING LEVOTHYROXINE SODIUM 88 MCG TABLET 1 TABLET ORALLY ONCE A DAY TAKING BLACK COHOSH 40 MG CAPSULE ORALLY DAILY TAKING ZOFRAN ODT 4 MG TABLET DISPERSIBLE 1 TABLET ON THE TONGUE AND ALLOW TO DISSOLVE ORALLY EVERY 8 HRS PRN NAUSEA TAKING ASPIRIN CHILDRENS 81 MG TABLET CHEWABLE 1 TABLET ORALLY ONCE A DAY TAKING VALTREX 500MG TABLET 1 TAB PLANNED PARENTHOOD ORALLY BID TAKING OMEPRAZOLE 20MG 20MG TABLET 1 TAB BEFORE MEAL ORAL ONCE A DAY TAKING ACIDOPHILUS - TABLET 1 TAB ORALLY DAILY TAKING PENLAC 8% SOLUTION 1 DROP TO AFFECTED TOE NAILS DAILY, CLEAN OFF WITH ALCOHOL EVERY 7 DAYS EXTERNALLY ONCE A DAY TAKING PERCOCET 5-325 MG TABLET 1 TABLET ORALLY ONCE PER DAY MDD=1 FOR PAIN NEEDED NOT-TAKING ACYCLOVIR 400 MG TABLET 1 TABLET ORALLY TWICE A DAY NOT-TAKING ESTROVEN MENOPAUSE RELIEF - CAPSULE ORALLY NOT-TAKING OMEPRAZOLE 20 MG CAPSULE DELAYED RELEASE TAKE ONE CAPSULE BY MOUTH EVERY DAY BEFORE A MEAL MEDICATION LIST REVIEWED AND RECONCILED WITH THE PATIENT PAST MEDICAL HISTORY HYPOTHYROIDISM ESOPHAGEAL REFLUX HS 2 DEPRESSION/ANXIETY SUBSTANCE ABUSE BARTHOLIN'S GLAND CYST SKIN CA NOSE--? BCCA ECHO 07/16: NORMAL (EF75%, NO ABNL) HOLTER 09/15: NORMAL, WAS IN NSR DURING SYMPTOMS ABPM 10/16:MEAN SBP 130S +RF 06/17, MILD RA SX (SEE 06/17 NOTE) DERMOID CYST RT PELVIS CT 2016 SJOGREN'S ALLERGIES DEMEROL: NAUSEA/VOMITING: ALLERGY REGLAN: EKG ABNORMALITIES: ALLERGY PREMPRO: PALPITATIONS: SIDE EFFECTS SOCIAL HISTORY GENERAL: TOBACCO USE ARE YOU A:NONSMOKER LUTHERAN [id number] BAHAI LEARNING BARRIERS / SPECIAL NEEDS CHANGE FROM LAST VISIT?NO BARRIERS TO LEARNING?NO HEARING IMPAIRED?NO VISION IMPAIRED?YES GLASSES FOR READING COGNITIVELY IMPAIRED?NO READINESS TO LEARN?YES LEARNING PREFERENCES?NO LEARNING CAPABILITIES PRESENT?YES EMOTIONAL BARRIERS?NO SPECIAL DEVICES?NO INDUSTRIAL INSULATOR NEEDED?NO PAIN CLINIC PFS, CLERGY, PUBLIC HEALTH REFERRALS PFS REFERRAL NEEDED?NO CLERGY REFERRAL NEEDED?NO PUBLIC HEALTH REFERRAL NEEDED?NO WAS THE PROVIDER NOTIFIED OF ANY PERTINENT INFO?NO HAS THE PATIENT BEEN EDUCATED REGARDING HIS/HER PLAN OF CARE?YES HAS THE PATIENT BEEN EDUCATED REGARDING PAIN, THE RISK FOR PAIN, THE IMPORTANCE OF EFFECTIVE PAIN MANAGEMENT, AND THE PAIN ASSESSMENT PROCESS?YES PATIENT: ____. REVIEWED, NO CHANGES. REVIEW OF SYSTEMS REVIEWED BY: PROVIDER: ARMAND HOLLOWAY . CONSTITUTIONAL: ANY CHANGE IN YOUR MEDICAL CONDITION? NO . CHILLS NO . FEVER NO . INFECTION: DO YOU HAVE NEW INFECTIONS? NO . DO YOU HAVE HISTORY OF MRSA? NO . MUSCULOSKELETAL: ANY NEW PATTERNS OF PAIN OR NUMBNESS? NO . GASTROENTEROLOGY: ANY NEW CHANGE IN BOWEL CONTROL? NO . GENITOURINARY: ANY NEW CHANGE IN BLADDER CONTROL? NO . IS THERE A CHANCE YOU COULD BE ? NO . HEMATOLOGY/LYMPH: DO YOU TAKE ANY BLOOD THINNERS? (FOR EXAMPLE- COUMADIN, PLAVIX, AGGRENOX, PLATEL, PRADAXA, OR XARELTO) NO . WHEN WAS YOUR LAST DOSE? DATE: TIME: . NEUROLOGY: HAVE YOU FALLEN IN THE PAST 6 MONTHS? NO . ANY NEW EXTREMITY NUMBNESS OR WEAKNESS? NO . CARDIOLOGY: DO YOU HAVE A PACEMAKER OR DEFIBRILLATOR? NO . RESPIRATORY: HAVE YOU BEEN SICK IN THE PAST WEEK? NO . FEVER NO . FLU LIKE SYMPTOMS? NO . COUGH NO . INTEGUMENTARY: DO YOU HAVE ANY RASHES OR OPEN SORES? NO . ALLERGIC/IMMUNO: ARE YOU ALLERGIC TO SHELLFISH OR IV DYE? NO . ANY NEW ALLERGIES? NO . PSYCHIATRIC: DO YOU HAVE THOUGHTS OF HURTING YOURSELF OR SOMEONE ELSE? NO . ARE YOU ABUSED, NEGLECTED, OR IN AN UNSAFE ENVIRONMENT? NO . ENDOCRINOLOGY: ARE YOU DIABETIC? NO . OTHER: DO YOU NEED ANY PRESCRIPTIONS? YES . IF YES, PLEASE LIST: PERCOCET 5/325 MG . ANY NEW PROBLEMS WITH YOUR MEDICATIONS? NO . WHEN DID YOU LAST EAT? ____ . WHEN DID YOU LAST DRINK? ____ . WHAT DID YOU LAST DRINK? ____ . NAME OF PERSON DRIVING YOU HOME? ____ . DO YOU HAVE ANY OTHER QUESTIONS OR CONCERNS NO . VITAL SIGNS WT 111 LBS, HT 63 IN, BMI 19.66 INDEX, BP 140/88 MM HG, HR 84 /MIN, RR 16 /MIN, TEMP 98.1 F, OXYGEN SAT % 97%, NA INITIALS SC 09:20, REVIEWED BY: SHAUNA. EXAMINATION GENERAL EXAMINATION: PSYCHALERT , ORIENTED X 3 , APPROPRIATE MOOD AND AFFECT. LUNGS:CLEAR TO AUSCULTATION BILATERALLY. HEART:HEART RATE REGULAR. MUSCULOSKELETAL:MILD TENDERNESS OVER LEFT LUMBAR FACETS AND SACRUM., FEW TRIGGER POINTS:, ELICITED WITH PALPATION OVER LUMBAR PARAVERTEBRAL MUSCLES AND INTO THE SACRUM. SLIGHT ELEVATION OF LEFT HIP WITH AMBULATION. JOINTS:RIGHT , KNEE , TENDER, WITH RANGE OF MOTION .SWELLING OVER MEDIAL ASPECT NOTED TODAY. ASSESSMENTS MYALGIA - M79.1 (PRIMARY) CHRONIC PRESCRIPTION OPIATE USE - Z79.891 TREATMENT MYALGIA REFILL PERCOCET TABLET, 5-325 MG, 1 TABLET, ORALLY, ONCE PER DAY MDD=1 FOR PAIN NEEDED, 30 DAY(S), 20, REFILLS 0 ARTHROCENTESIS INJECTION LARGE JOINT ([id number])ARMAND AUGUSTE 10/18/2016 9:52:44 AM > RIGHT NOTES: CONTINUE EXERCISES, BIKE. CLINICAL NOTES: ISTOP REGISTRY REVIEWED AND DEMNOSTRATES COMPLLIANCE. BRINGS IN MEDICATIONS WHICH IS APPROPRIATE FOR WHAT WAS DISPENSED. PREVENTIVE MEDICINE PAIN CLINIC TEACHING: PROCEDURE TEACHING PRE-PROCEDURE TEACHING DONE AND PATIENT VERBALIZES UNDERSTANDING.. PROCEDURE CODES FA211 ESTABILISHED PATIENT [facility] CHARGE DISPOSITION & COMMUNICATION FOLLOW UP SCHEDULE INJECTION OUT 1 MONTH (REASON: CHECK AUTH FOR KNEE INJECTION) ELECTRONICALLY SIGNED BY SAVITA LAAS ON 11/01/2016 AT 12:46 PM EDT DISCLAIMER : THIS IS A VISIT SUMMARY EXTRACTED FROM THE [facility] CHART. IT IS NOT A COPY OF THE [facility] PROGRESS NOTE. JOSE
== END ==
LOC: M PAIN 09:00
PROVIDERS: ATTEND Nurse Practitioner Family
DX: G89.29 Other chronic pain (principal); M54.5 Low back pain; M79.1 Myalgia; E03.9 Hypothyroidism, unspecified; J30.9 Allergic rhinitis, unspecified; R76.8 Other specified abnormal immunological findings in serum; M17.11 Unilateral primary osteoarthritis, right knee; F43.22 Adjustment disorder with anxiety; I51.7 Cardiomegaly; M05.79 Rheumatoid arthritis with rheumatoid factor of multiple sites without organ or systems involvement; Z88.5 Allergy status to narcotic agent; Z88.8 Allergy status to other drugs, medicaments and biological substances; Z79.82 Long term (current) use of aspirin; Z79.891 Long term (current) use of opiate analgesic; Z79.899 Other long term (current) drug therapy

== ENCOUNTER → 2016-10-25 | Outpatient (CLI) | payer OTHER ==
--- NOTE | 2016-10-25 16:11 | REPMRS ---
Patient History The patient states she had a clinical breast exam in Patient is postmenopausal and is nulliparous. Family history of endometrial cancer in maternal aunt and breast cancer in maternal grandmother. Took hormonal contraceptives for 23 years. Digital Woman Screen Mammo: October 25, 2016 - Exam #: [id number] Bilateral CC and MLO view(s) were taken. Technologist: Daxa Billings, Technologist Prior study comparison: September 26, 2015, digital woman screen mammo performed at [facility]. August 17, 2014, digital woman screen mammo performed at [facility]. FINDINGS: The breast tissue is heterogeneously dense. This may lower the sensitivity of mammography. There has been no change in the appearance of the mammogram from the prior studies. There is a moderate amount of residual fibroglandular tissue which is fairly symmetric. There is no interval development of dominant mass, areas of architectural distortion, or clustered microcalcification typical of malignancy. ASSESSMENT: BI-RADS/ACR category 1 mammogram. Negative. Recommendation Routine screening mammogram in 1 year (for women over age 40). This mammogram was interpreted with the aid of an FDA-approved computer-aided dectection system. Electronically Signed By: Julian Marte MD 10/25/16 4526
== END ==
LOC: M WHC 15:25
PROVIDERS: ATTEND Physician Assistant
DX: Z12.31 Encounter for screening mammogram for malignant neoplasm of breast (principal); Z78.0 Asymptomatic menopausal state; Z80.3 Family history of malignant neoplasm of breast

== ENCOUNTER → 2016-11-17 | Outpatient (CLI) | payer OTHER ==
--- NOTE | 2016-11-17 14:08 | REP ---
Clinical: Trauma. Comparison: 08/15/2015 Technique: AP, lateral, bilateral oblique views of the right ankle. Findings: Age-related changes are appreciated and stable. No acute fracture dislocation. Joint spaces and ankle mortise are intact. Impression: Stable right ankle. No acute fracture dislocation. Signed by Tom Ritter MD 11/17/2016 01:59 P
== END ==
LOC: M RAD 13:32
PROVIDERS: ATTEND Physician Assistant
DX: M25.571 Pain in right ankle and joints of right foot (principal); X50.1XXA Overexertion from prolonged static or awkward postures, initial encounter; Y92.9 Unspecified place or not applicable; Y93.9 Activity, unspecified; Y99.9 Unspecified external cause status

== ENCOUNTER → 2016-11-22 | Outpatient (CLI) | payer OTHER ==
[~2016-11-22] MED LIST changes: +BUPIVACAINE HCL 0.25% 30 ML VIAL As Ordered ONE; +ISOVUE-M 300 61% 15ML VIAL (Q9967) As Ordered ONE; +LIDOCAINE 1% SDV INJ 30 ML VIAL As Ordered ONE; +TRIAMCINOLONE ACETONIDE SUSP 40 MG/ML VIAL (J3301) As Ordered ONE; +diazePAM 5 MG TAB As Ordered ONE; +oxyCODONE 5MG TAB As Ordered ONE
--- NOTE | 2016-11-22 17:09 | REP ---
Right knee series: 10 views. Intraprocedural. History: Right knee injection for pain. 7 seconds of fluoroscopy time is reported. Findings: A sequence of 10 last image hold fluoroscopic spot radiographs of the right knee document needle position and contrast injection associated with injection procedure. Signed by Ander Do MD 11/22/2016 06:04 P
--- NOTE | 2016-11-23 | ECWPNPC ---
PATIENT NAME: EVERETT BUSTILLO : 1965 GENDER: FEMALE VISIT DATE: 11/22/2016 DISCHARGE DATE: 11/22/16 1401 VISIT LOCKED DATE TIME: PHYSICIAN: RUTHY AYERS PHYSICIAN PAGER NO: [phone] RESOURCE: RUTHY AYERS REASON FOR APPOINTMENT 1. ARTHROCENTESIS INJ. HISTORY OF PRESENT ILLNESS HISTORY OF PRESENT ILLNESS: PAIN THE PATIENT DESCRIBES THE PAIN... FALL RISK SCREENING: SCREENING :NO FALLS IN THE PAST YEAR CURRENT MEDICATIONS TAKING MULTIVITAMINS OTC TABLET 1 TABLET ORALLY ONCE A DAY, NOTES: 11/21 1299 TAKING BIOTIN OTC TABLET 1 TABLET ORALLY ONCE A DAY, NOTES: 11/22 344 TAKING FLONASE 50 MCG/ACT SUSPENSION 1 PUFF IN EACH NOSTRIL NASALLY ONCE A DAY NEEDED, NOTES: 11/22 344 TAKING CLARITIN 10 MG TABLET 1 TABLET ORALLY ONCE A DAY, NOTES: 11/22 1999 TAKING LEVOTHYROXINE SODIUM 88 MCG TABLET 1 TABLET ORALLY ONCE A DAY, NOTES: 11/22 344 TAKING ZOFRAN ODT 4 MG TABLET DISPERSIBLE 1 TABLET ON THE TONGUE AND ALLOW TO DISSOLVE ORALLY EVERY 8 HRS PRN NAUSEA, NOTES: WEEK AGO TAKING ASPIRIN CHILDRENS 81 MG TABLET CHEWABLE 1 TABLET ORALLY ONCE A DAY, NOTES: 11/22 344 TAKING VALTREX 500MG TABLET 1 TAB PLANNED PARENTHOOD ORALLY BID, NOTES: 11/22 344 TAKING OMEPRAZOLE 20MG 20MG TABLET 1 TAB BEFORE MEAL ORAL ONCE A DAY, NOTES: 11/21 1300 TAKING ACIDOPHILUS - TABLET 1 TAB ORALLY DAILY, NOTES: 11/22 344 TAKING PENLAC 8% SOLUTION 1 DROP TO AFFECTED TOE NAILS DAILY, CLEAN OFF WITH ALCOHOL EVERY 7 DAYS EXTERNALLY ONCE A DAY, NOTES: WEEK AGO TAKING PERCOCET 5-325 MG TABLET 1 TABLET ORALLY ONCE PER DAY MDD=1 FOR PAIN NEEDED, NOTES: 11/20 1/ TAB 1930 NOT-TAKING BLACK COHOSH 40 MG CAPSULE ORALLY DAILY NOT-TAKING ACYCLOVIR 400 MG TABLET 1 TABLET ORALLY TWICE A DAY NOT-TAKING ESTROVEN MENOPAUSE RELIEF - CAPSULE ORALLY NOT-TAKING OMEPRAZOLE 20 MG CAPSULE DELAYED RELEASE TAKE ONE CAPSULE BY MOUTH EVERY DAY BEFORE A MEAL MEDICATION LIST REVIEWED AND RECONCILED WITH THE PATIENT PAST MEDICAL HISTORY HYPOTHYROIDISM ESOPHAGEAL REFLUX HS 2 DEPRESSION/ANXIETY SUBSTANCE ABUSE BARTHOLIN'S GLAND CYST SKIN CA NOSE--? BCCA ECHO 5/15: NORMAL (EF75%, NO ABNL) HOLTER 09/15: NORMAL, WAS IN NSR DURING SYMPTOMS ABPM 10/16:MEAN SBP 130S +RF 06/17, MILD RA SX (SEE 06/17 NOTE) DERMOID CYST RT PELVIS CT 2016 SJOGREN'S ALLERGIES DEMEROL: NAUSEA/VOMITING: ALLERGY REGLAN: EKG ABNORMALITIES: ALLERGY PREMPRO: PALPITATIONS: SIDE EFFECTS SOCIAL HISTORY GENERAL: TOBACCO USE ARE YOU A:NONSMOKER ALCOHOL SCREENING POINTS4 INTERPRETATIONPOSITIVE RECREATIONAL DRUG USE DRUG USE?NO CAFFEINE CAFFEINE USE?NO PROTESTANT [id number] HINDU LANGUAGE LANGUAGES SPOKEN:JAPANESE LEARNING BARRIERS / SPECIAL NEEDS CHANGE FROM LAST VISIT?NO BARRIERS TO LEARNING?NO HEARING IMPAIRED?NO VISION IMPAIRED?YES GLASSES FOR READING COGNITIVELY IMPAIRED?NO READINESS TO LEARN?YES LEARNING PREFERENCES?NO LEARNING CAPABILITIES PRESENT?YES EMOTIONAL BARRIERS?NO SPECIAL DEVICES?NO PROFESSOR OF PSYCHOLOGY NEEDED?NO PAIN CLINIC PFS, CLERGY, PUBLIC HEALTH REFERRALS PFS REFERRAL NEEDED?NO CLERGY REFERRAL NEEDED?NO PUBLIC HEALTH REFERRAL NEEDED?NO WAS THE PROVIDER NOTIFIED OF ANY PERTINENT INFO?NO HAS THE PATIENT BEEN EDUCATED REGARDING HIS/HER PLAN OF CARE?YES HAS THE PATIENT BEEN EDUCATED REGARDING PAIN, THE RISK FOR PAIN, THE IMPORTANCE OF EFFECTIVE PAIN MANAGEMENT, AND THE PAIN ASSESSMENT PROCESS?YES PATIENT: ____. ADVANCE DIRECTIVES HEALTH CARE PROXY?NO WOULD YOU LIKE MORE INFORMATION?YES GIVEN DO YOU HAVE A DNR?NO WOULD YOU LIKE MORE INFORMATION?NO LIVING WILL?NO WOULD YOU LIKE MORE INFORMATION?NO POWER OF WATER TECHNICIAN?NO WOULD YOU LIKE MORE INFORMATION?NO DOMESTIC VIOLENCE DO YOU FEEL SAFE IN YOUR ENVIRONMENT?YES REVIEWED, NO CHANGES. REVIEW OF SYSTEMS REVIEWED BY: PROVIDER: . CONSTITUTIONAL: ANY CHANGE IN YOUR MEDICAL CONDITION? NO . CHILLS NO . FEVER NO . INFECTION: DO YOU HAVE NEW INFECTIONS? NO . DO YOU HAVE HISTORY OF MRSA? NO . MUSCULOSKELETAL: ANY NEW PATTERNS OF PAIN OR NUMBNESS? NO . GASTROENTEROLOGY: ANY NEW CHANGE IN BOWEL CONTROL? NO . GENITOURINARY: ANY NEW CHANGE IN BLADDER CONTROL? NO . IS THERE A CHANCE YOU COULD BE ? NO . HEMATOLOGY/LYMPH: DO YOU TAKE ANY BLOOD THINNERS? (FOR EXAMPLE- COUMADIN, PLAVIX, AGGRENOX, PLATEL, PRADAXA, OR XARELTO) NO . WHEN WAS YOUR LAST DOSE? DATE: TIME: . NEUROLOGY: HAVE YOU FALLEN IN THE PAST 6 MONTHS? NO . ANY NEW EXTREMITY NUMBNESS OR WEAKNESS? NO . CARDIOLOGY: DO YOU HAVE A PACEMAKER OR DEFIBRILLATOR? NO . RESPIRATORY: HAVE YOU BEEN SICK IN THE PAST WEEK? NO . FEVER NO . FLU LIKE SYMPTOMS? NO . COUGH NO . INTEGUMENTARY: DO YOU HAVE ANY RASHES OR OPEN SORES? NO . ALLERGIC/IMMUNO: ARE YOU ALLERGIC TO SHELLFISH OR IV DYE? NO . ANY NEW ALLERGIES? NO . PSYCHIATRIC: DO YOU HAVE THOUGHTS OF HURTING YOURSELF OR SOMEONE ELSE? NO . ARE YOU ABUSED, NEGLECTED, OR IN AN UNSAFE ENVIRONMENT? NO . ENDOCRINOLOGY: ARE YOU DIABETIC? NO . OTHER: DO YOU NEED ANY PRESCRIPTIONS? NO . IF YES, PLEASE LIST: ____ . ANY NEW PROBLEMS WITH YOUR MEDICATIONS? NO . WHEN DID YOU LAST EAT? 11/22/16 0800 . WHEN DID YOU LAST DRINK? 11/22/16 1230 . WHAT DID YOU LAST DRINK? WATER . NAME OF PERSON DRIVING YOU HOME? FABIANA . DO YOU HAVE ANY OTHER QUESTIONS OR CONCERNS NO . VITAL SIGNS WT 113 LBS, HT 63 IN, BMI 20.01 INDEX, BP 138/75 MM HG, HR 70 /MIN, RR 16 /MIN, TEMP 97.4 F, OXYGEN SAT % 100%, NA INITIALS AW 1148, REVIEWED BY: CHANO. ASSESSMENTS PRIMARY OSTEOARTHRITIS OF RIGHT KNEE - M17.11 (PRIMARY) TREATMENT OTHERS NOTES: PRE-PROCEDURE DIAGNOSIS: RIGHT KNEE OSTEOARTHRITISPOST-PROCEDURE DIAGNOSIS: RIGHT KNEE OSTEOARTHRITISPROCEDURE: INJECTION OF STEROIDS AT THE RIGHT KNEE WITH FLUOROSCOPIC GUIDANCESURGEON: BRIAN CARBALLOTHESIA: LOCALCOMPLICATIONS: NONEPRE-PROCEDURE NOTE: THE PATIENT IS SUFFERING OF SEVERE RIGHT KNEE PAIN. THE PATIENT HAS BEEN USING MULTIPLE MEDICATIONS TO CONTROL THIS PAIN. I HAVE DISCUSSED ALTERNATIVES WITH HIM. THE PATIENT INDICATES THAT HE CANNOT FUNCTION WITH THIS PAIN. AFTER DISCUSSING ALTERNATIVES HE WANTS TO MOVE FORWARD WITH A RIGHT KNEE INJECTION OF STEROIDS. I WENT THROUGH THE RISKS ALTERNATIVES AND BENEFITS ASSOCIATED WITH THIS PROCEDURE AND THE PATIENT EXPRESSED THAT HE WOULD LIKE TO PROCEED. DUE TO THE PATIENT BODY HABITUS AND FOR CERTAINTY THE PROCEDURE WAS DONE UNDER FLUOROSCOPIC GUIDANCE. PROCEDURE NOTE: THE PATIENT WAS TAKEN TO THE PROCEDURE ROOM AND PLACED IN THE SUPINE POSITION. THE RIGHT KNEE WERE CLEAN WITH BETHADINE SOLUTION AND DRAPED ASEPTICALLY. THE PROCEDURE WAS DONE WITH FLUOROSCOPIC GUIDANCE. ENTRY POINT WAS SELECTED AT THE SUPERIOR AND LATERAL MARGIN OF THE RIGHT KNEE. UNDER FLUOROSCOPIC GUIDANCE A 22 GAUGE SPINAL NEEDLE WAS ADVANCE SMOOTHLY UNTIL THE LATERAL THIRD OF THE KNEE JOINT WAS REACHED SEEN WITH AN AP VIEW. AFTER PROPER POSITION OF THE NEEDLE WAS REACHED ISOVUE DYE 30% .25CC WAS INJECTED SLOWLY SHOWING ADEQUATE SPREAD OF THE DYE OVER THE RIGHT KNEE JOINT. THEN A SOLUTION OF 4 CC OF BUPIVACAINE 0.125% AND KENALOG 20 MG WAS INJECTED AT THE JOINT. INJECTION WAS DONE SMOOTHLY AND WITHOUT RESISTANCE. THERE WAS NO EVIDENCE OF PARESTHESIA OR BLOOD. THE PATIENT WAS SEND TO THE RECOVERY ROOM FOR OBSERVATION. FLUORO TIME WAS 7 SECONDS.POST-PROCEDURE NOTE: I DISCUSSED ALTERNATIVES WITH THE PATIENT. I WILL SEE HIM IN A F/UP IN THE NEXT FEW WEEKS. THERE WERE NO COMPLICATIONS DURING THE PROCEDURE. INSTRUCTIONS WERE GIVEN, QUESTION WERE ANSWERED AND THE PATIENT REPORTS UNDERSTANDING. I, SABIHA KEVIN, DOCUMENTED THE ABOVE INFORMATION ACTING A SCRIBE FOR DR. AYERS. I HAVE REVIEWED THE ABOVE DOCUMENT, WRITTEN BY SABIHA CHENIBNahomi AND I VERIFY THAT IT IS ACCURATE. [facility] FLUORO GUIDANCE (PAIN)[id number] PROCEDURE CODES 04735 DRAIN/INJ JOINT/BURSA W/O US 6045F RADXPS IN END [id number] PXD [id number] NEEDLE LOCALIZATION BY XRAY DISPOSITION & COMMUNICATION FOLLOW UP 3 WEEKS ELECTRONICALLY SIGNED BY RUTHY AYERS MD ON 11/22/2016 AT 04:57 PM EDT DISCLAIMER : THIS IS A VISIT SUMMARY EXTRACTED FROM THE [facility] CHART. IT IS NOT A COPY OF THE [facility] PROGRESS NOTE. MTDD
== END ==
LOC: M PAIN 11:30
PROVIDERS: ATTEND Anesthesiology
DX: G89.29 Other chronic pain (principal); M17.11 Unilateral primary osteoarthritis, right knee; E03.9 Hypothyroidism, unspecified; K21.9 Gastro-esophageal reflux disease without esophagitis; F32.9 Major depressive disorder, single episode, unspecified; F41.9 Anxiety disorder, unspecified; Z88.5 Allergy status to narcotic agent; Z88.8 Allergy status to other drugs, medicaments and biological substances; Z79.1 Long term (current) use of non-steroidal anti-inflammatories (NSAID); Z79.82 Long term (current) use of aspirin; Z79.899 Other long term (current) drug therapy; Z86.59 Personal history of other mental and behavioral disorders
CPT/HCPCS: 20610; 77002; J3301; Q9967

== ENCOUNTER → 2016-12-06 | Outpatient (CLI) | payer OTHER ==
[~2016-12-06] MED LIST changes: -BUPIVACAINE HCL 0.25% 30 ML VIAL As Ordered ONE; -ISOVUE-M 300 61% 15ML VIAL (Q9967) As Ordered ONE; -LIDOCAINE 1% SDV INJ 30 ML VIAL As Ordered ONE; -TRIAMCINOLONE ACETONIDE SUSP 40 MG/ML VIAL (J3301) As Ordered ONE; -diazePAM 5 MG TAB As Ordered ONE; -oxyCODONE 5MG TAB As Ordered ONE
== END ==
LOC: M LAB 12:35
PROVIDERS: ATTEND Internal Medicine Endocrinology, Diabetes & Metabolism
DX: E89.0 Postprocedural hypothyroidism (principal)

== ENCOUNTER → 2016-12-31 | Outpatient (CLI) | payer OTHER ==
--- NOTE | 2017-01-01 00:57 | ECWPNPC ---
PATIENT NAME: EVERETT BUSTILLO : 1965 GENDER: FEMALE VISIT DATE: 12/31/2016 DISCHARGE DATE: 12/31/16 1303 VISIT LOCKED DATE TIME: PHYSICIAN: ARMAND AUGUSTE PHYSICIAN PAGER NO: [phone] RESOURCE: ARMAND AUGUSTE REASON FOR APPOINTMENT 1. POST PROCEDURE HISTORY OF PRESENT ILLNESS HISTORY OF PRESENT ILLNESS: PAIN THE PATIENT DESCRIBES THE PAIN... FALL RISK SCREENING: SCREENING :NO FALLS IN THE PAST YEAR TODAY'S VISIT: NOTES: RATES PAIN TODAYAS 11/11. IS S/P RIGHT KNEE JOINT INJECTION ON 11/22/16. NOTES 50% PAIN REDUCTION FOR ONE WEEK BU T ALSO HAD A FALL LANDING ON THE RIGHT KNEE. HAS BEEN HAVING INCREASED PAIN IN LOW BACK. THIS IS EFFECTING SLEEP. . CURRENT MEDICATIONS TAKING MULTIVITAMINS OTC TABLET 1 TABLET ORALLY ONCE A DAY TAKING BIOTIN OTC TABLET 1 TABLET ORALLY ONCE A DAY TAKING FLONASE 50 MCG/ACT SUSPENSION 1 PUFF IN EACH NOSTRIL NASALLY ONCE A DAY NEEDED TAKING CLARITIN 10 MG TABLET 1 TABLET ORALLY ONCE A DAY TAKING LEVOTHYROXINE SODIUM 88 MCG TABLET 1 TABLET ORALLY ONCE A DAY TAKING ZOFRAN ODT 4 MG TABLET DISPERSIBLE 1 TABLET ON THE TONGUE AND ALLOW TO DISSOLVE ORALLY EVERY 8 HRS PRN NAUSEA TAKING VALTREX 500MG TABLET 1 TAB PLANNED PARENTHOOD ORALLY BID TAKING ACIDOPHILUS - TABLET 1 TAB ORALLY DAILY TAKING PENLAC 8% SOLUTION 1 DROP TO AFFECTED TOE NAILS DAILY, CLEAN OFF WITH ALCOHOL EVERY 7 DAYS EXTERNALLY ONCE A DAY TAKING PERCOCET 5-325 MG TABLET 1 TABLET ORALLY ONCE PER DAY MDD=1 FOR PAIN NEEDED TAKING OMEPRAZOLE 20MG 20MG TABLET 1 TAB BEFORE MEAL ORAL ONCE A DAY TAKING BLACK COHOSH 40 MG CAPSULE ORALLY DAILY NOT-TAKING ASPIRIN CHILDRENS 81 MG TABLET CHEWABLE 1 TABLET ORALLY ONCE A DAY NOT-TAKING ACYCLOVIR 400 MG TABLET 1 TABLET ORALLY TWICE A DAY DISCONTINUED ESTROVEN MENOPAUSE RELIEF - CAPSULE ORALLY DISCONTINUED OMEPRAZOLE 20 MG CAPSULE DELAYED RELEASE TAKE ONE CAPSULE BY MOUTH EVERY DAY BEFORE A MEAL MEDICATION LIST REVIEWED AND RECONCILED WITH THE PATIENT PAST MEDICAL HISTORY HYPOTHYROIDISM ESOPHAGEAL REFLUX HS 2 DEPRESSION/ANXIETY SUBSTANCE ABUSE BARTHOLIN'S GLAND CYST SKIN CA NOSE--? BCCA ECHO 07/16: NORMAL (EF75%, NO ABNL) HOLTER 09/15: NORMAL, WAS IN NSR DURING SYMPTOMS ABPM 10/16:MEAN SBP 130S +RF 06/17, MILD RA SX (SEE 06/17 NOTE) DERMOID CYST RT PELVIS CT 2016 SJOGREN'S ALLERGIES DEMEROL: NAUSEA/VOMITING: ALLERGY REGLAN: EKG ABNORMALITIES: ALLERGY PREMPRO: PALPITATIONS: SIDE EFFECTS SOCIAL HISTORY GENERAL: TOBACCO USE ARE YOU A:NONSMOKER ALCOHOL SCREENING DID YOU HAVE A DRINK CONTAINING ALCOHOL IN THE PAST YEAR?YES HOW OFTEN DID YOU HAVE SIX OR MORE DRINKS ON ONE OCCASION IN THE PAST YEAR?LESS THAN MONTHLY (1 POINT) HOW MANY DRINKS DID YOU HAVE ON A TYPICAL DAY WHEN YOU WERE DRINKING IN THE PAST YEAR?1 OR 2 (0 POINTS) HOW OFTEN DID YOU HAVE A DRINK CONTAINING ALCOHOL IN THE PAST YEAR?TWO TO THREE TIMES PER WEEK (3 POINTS) POINTS4 INTERPRETATIONPOSITIVE RECREATIONAL DRUG USE DRUG USE?NO CAFFEINE CAFFEINE USE?NO CATHOLIC [id number] ANGLICAN LANGUAGE LANGUAGES SPOKEN:NORTHERN IRISH LEARNING BARRIERS / SPECIAL NEEDS CHANGE FROM LAST VISIT?NO BARRIERS TO LEARNING?NO HEARING IMPAIRED?NO VISION IMPAIRED?YES GLASSES FOR READING COGNITIVELY IMPAIRED?NO READINESS TO LEARN?YES LEARNING PREFERENCES?NO LEARNING CAPABILITIES PRESENT?YES EMOTIONAL BARRIERS?NO SPECIAL DEVICES?NO BUSINESS PROCESS ARCHITECT NEEDED?NO PAIN CLINIC PFS, CLERGY, PUBLIC HEALTH REFERRALS PFS REFERRAL NEEDED?NO CLERGY REFERRAL NEEDED?NO PUBLIC HEALTH REFERRAL NEEDED?NO WAS THE PROVIDER NOTIFIED OF ANY PERTINENT INFO?NO HAS THE PATIENT BEEN EDUCATED REGARDING HIS/HER PLAN OF CARE?YES HAS THE PATIENT BEEN EDUCATED REGARDING PAIN, THE RISK FOR PAIN, THE IMPORTANCE OF EFFECTIVE PAIN MANAGEMENT, AND THE PAIN ASSESSMENT PROCESS?YES PATIENT: ____. ADVANCE DIRECTIVES HEALTH CARE PROXY?NO WOULD YOU LIKE MORE INFORMATION?YES GIVEN POWER OF HYDROLOGIST?NO DO YOU HAVE A DNR?NO WOULD YOU LIKE MORE INFORMATION?NO LIVING WILL?NO WOULD YOU LIKE MORE INFORMATION?NO WOULD YOU LIKE MORE INFORMATION?NO DOMESTIC VIOLENCE DO YOU FEEL SAFE IN YOUR ENVIRONMENT?YES REVIEWED, NO CHANGES. REVIEW OF SYSTEMS REVIEWED BY: PROVIDER: ARMAND HOLLOWAY . CONSTITUTIONAL: ANY CHANGE IN YOUR MEDICAL CONDITION? NO . CHILLS NO . FEVER NO . INFECTION: DO YOU HAVE NEW INFECTIONS? NO . DO YOU HAVE HISTORY OF MRSA? NO . MUSCULOSKELETAL: ANY NEW PATTERNS OF PAIN OR NUMBNESS? YES, PAIN ALL OVER HAS INCREASED AND DID NOT GET MUCH RELIEF FROM THE KNEE INJECTIONS. . GASTROENTEROLOGY: ANY NEW CHANGE IN BOWEL CONTROL? NO . GENITOURINARY: ANY NEW CHANGE IN BLADDER CONTROL? NO . IS THERE A CHANCE YOU COULD BE ? NO . HEMATOLOGY/LYMPH: DO YOU TAKE ANY BLOOD THINNERS? (FOR EXAMPLE- COUMADIN, PLAVIX, AGGRENOX, PLATEL, PRADAXA, OR XARELTO) NO . WHEN WAS YOUR LAST DOSE? DATE: TIME: . NEUROLOGY: HAVE YOU FALLEN IN THE PAST 6 MONTHS? NO . ANY NEW EXTREMITY NUMBNESS OR WEAKNESS? NO . CARDIOLOGY: DO YOU HAVE A PACEMAKER OR DEFIBRILLATOR? NO . RESPIRATORY: HAVE YOU BEEN SICK IN THE PAST WEEK? NO . FEVER NO . FLU LIKE SYMPTOMS? NO . COUGH NO . INTEGUMENTARY: DO YOU HAVE ANY RASHES OR OPEN SORES? NO . ALLERGIC/IMMUNO: ARE YOU ALLERGIC TO SHELLFISH OR IV DYE? NO . ANY NEW ALLERGIES? NO . PSYCHIATRIC: DO YOU HAVE THOUGHTS OF HURTING YOURSELF OR SOMEONE ELSE? NO . ARE YOU ABUSED, NEGLECTED, OR IN AN UNSAFE ENVIRONMENT? NO . ENDOCRINOLOGY: ARE YOU DIABETIC? NO . OTHER: DO YOU NEED ANY PRESCRIPTIONS? YES . IF YES, PLEASE LIST: OXY/ACETAMINOPHEN 5/325MG . ANY NEW PROBLEMS WITH YOUR MEDICATIONS? NO . WHEN DID YOU LAST EAT? ____ . WHEN DID YOU LAST DRINK? ____ . WHAT DID YOU LAST DRINK? ____ . NAME OF PERSON DRIVING YOU HOME? ____ . DO YOU HAVE ANY OTHER QUESTIONS OR CONCERNS NO . VITAL SIGNS WT 115.0 LBS, HT 63 IN, BMI 20.37 INDEX, BP 119/79 MM HG, HR 68 /MIN, RR 16 /MIN, TEMP 98.0 F, OXYGEN SAT % 100%, NA INITIALS TL 1152, REVIEWED BY: CM. EXAMINATION GENERAL EXAMINATION: PSYCHALERT , ORIENTED X 3 , APPROPRIATE MOOD AND AFFECT. LUNGS:CLEAR TO AUSCULTATION BILATERALLY. HEART:HEART RATE REGULAR. MUSCULOSKELETAL:MILD TENDERNESS OVER LEFT LUMBAR FACETS AND SACRUM., FEW TRIGGER POINTS:, ELICITED WITH PALPATION OVER LUMBAR PARAVERTEBRAL MUSCLES AND INTO THE SACRUM. SLIGHT ELEVATION OF LEFT HIP WITH AMBULATION. JOINTS:RIGHT , KNEE , TENDER, WITH RANGE OF MOTION .SWELLING OVER MEDIAL ASPECT NOTED TODAY. ASSESSMENTS MYALGIA - M79.1 (PRIMARY) CHRONIC PRESCRIPTION OPIATE USE - Z79.891 TREATMENT MYALGIA REFILL ZOFRAN ODT TABLET DISPERSIBLE, 4 MG, 1 TABLET ON THE TONGUE AND ALLOW TO DISSOLVE, ORALLY, EVERY 8 HRS PRN NAUSEA, 30 DAY(S), 30, REFILLS 2 REFILL PERCOCET TABLET, 5-325 MG, 1 TABLET, ORALLY, ONCE PER DAY MDD=1 FOR PAIN NEEDED, 30 DAY(S), 20, REFILLS 0 TRIGGER POINT 3 + ARMAND GUERRERO 12/31/2016 12:47:19 PM > LOW BACK NOTES: TRIGGER POINT INJECTION MATERIAL WAS PRINTED. PROCEDURE CODES FA211 ESTABILISHED PATIENT [facility] CHARGE DISPOSITION & COMMUNICATION FOLLOW UP AFTER INJECTION (REASON: CHECK AUTH FOR TPI LOW BACK) ELECTRONICALLY SIGNED BY SAVITA ALAS ON 12/31/2016 AT 10:08 PM EDT DISCLAIMER : THIS IS A VISIT SUMMARY EXTRACTED FROM THE [employer] CHART. IT IS NOT A COPY OF THE [employer] PROGRESS NOTE. JOSE
== END ==
LOC: M PAIN 11:45
PROVIDERS: ATTEND Nurse Practitioner Family
DX: G89.29 Other chronic pain (principal); M17.11 Unilateral primary osteoarthritis, right knee; M79.1 Myalgia; E03.9 Hypothyroidism, unspecified; J30.9 Allergic rhinitis, unspecified; R76.8 Other specified abnormal immunological findings in serum; F43.22 Adjustment disorder with anxiety; I51.7 Cardiomegaly; F32.9 Major depressive disorder, single episode, unspecified; F41.9 Anxiety disorder, unspecified; Z88.5 Allergy status to narcotic agent; Z88.8 Allergy status to other drugs, medicaments and biological substances; Z79.899 Other long term (current) drug therapy

== ENCOUNTER → 2017-01-08 | Outpatient (CLI) | payer OTHER ==
[~2017-01-08] MED LIST changes: +BUPIVACAINE HCL 0.25% 10 ML VIAL As Ordered ONE; +BUPIVACAINE HCL 0.25% 30 ML VIAL As Ordered ONE; +diazePAM 5 MG TAB As Ordered ONE; +oxyCODONE 5MG TAB As Ordered ONE
--- NOTE | 2017-01-13 23:40 | ECWPNPC ---
PATIENT NAME: EVERETT BUSTILLO : 1965 GENDER: FEMALE VISIT DATE: 01/08/2017 DISCHARGE DATE: 01/08/17 1614 VISIT LOCKED DATE TIME: PHYSICIAN: RUTHY AYERS PHYSICIAN PAGER NO: [phone] RESOURCE: RUTHY AYERS REASON FOR APPOINTMENT 1. LOW BACK HISTORY OF PRESENT ILLNESS HISTORY OF PRESENT ILLNESS: PAIN THE PATIENT DESCRIBES THE PAIN... FALL RISK SCREENING: SCREENING :NO FALLS IN THE PAST YEAR CURRENT MEDICATIONS TAKING MULTIVITAMINS OTC TABLET 1 TABLET ORALLY ONCE A DAY, NOTES: 01/08/17 1200 TAKING BIOTIN OTC TABLET 1 TABLET ORALLY ONCE A DAY, NOTES: 01/08/17 040 TAKING FLONASE 50 MCG/ACT SUSPENSION 1 PUFF IN EACH NOSTRIL NASALLY ONCE A DAY NEEDED, NOTES: 01/08/17429 TAKING CLARITIN 10 MG TABLET 1 TABLET ORALLY ONCE A DAY, NOTES: 01/07/17 1900 TAKING LEVOTHYROXINE SODIUM 88 MCG TABLET 1 TABLET ORALLY ONCE A DAY, NOTES: 01/08/17344 TAKING VALTREX 500MG TABLET 1 TAB PLANNED PARENTHOOD ORALLY BID, NOTES: 01/08/17344 TAKING ACIDOPHILUS - TABLET 1 TAB ORALLY DAILY, NOTES: 01/08/17344 TAKING PENLAC 8% SOLUTION 1 DROP TO AFFECTED TOE NAILS DAILY, CLEAN OFF WITH ALCOHOL EVERY 7 DAYS EXTERNALLY ONCE A DAY, NOTES: > 2 WEEKS TAKING OMEPRAZOLE 20MG 20MG TABLET 1 TAB BEFORE MEAL ORAL ONCE A DAY, NOTES: 01/08/17 1200 TAKING BLACK COHOSH 40 MG CAPSULE ORALLY DAILY, NOTES: 01/08/17344 TAKING ZOFRAN ODT 4 MG TABLET DISPERSIBLE 1 TABLET ON THE TONGUE AND ALLOW TO DISSOLVE ORALLY EVERY 8 HRS PRN NAUSEA, NOTES: > 1 WEEK TAKING PERCOCET 5-325 MG TABLET 1 TABLET ORALLY ONCE PER DAY MDD=1 FOR PAIN NEEDED, NOTES: 01/07/17 1300 TAKING PREDNISONE 5 MG TABLET 1 TABLET ORALLY ONCE A DAY NOT-TAKING ASPIRIN CHILDRENS 81 MG TABLET CHEWABLE 1 TABLET ORALLY ONCE A DAY NOT-TAKING ACYCLOVIR 400 MG TABLET 1 TABLET ORALLY TWICE A DAY MEDICATION LIST REVIEWED AND RECONCILED WITH THE PATIENT PAST MEDICAL HISTORY HYPOTHYROIDISM ESOPHAGEAL REFLUX HS 2 DEPRESSION/ANXIETY SUBSTANCE ABUSE BARTHOLIN'S GLAND CYST SKIN CA NOSE--? BCCA ECHO 07/16: NORMAL (EF75%, NO ABNL) HOLTER 09/15: NORMAL, WAS IN NSR DURING SYMPTOMS ABPM 10/16:MEAN SBP 130S +RF 06/17, MILD RA SX (SEE 06/17 NOTE) DERMOID CYST RT PELVIS CT 2015 SJOGREN'S ALLERGIES DEMEROL: NAUSEA/VOMITING: ALLERGY REGLAN: EKG ABNORMALITIES: ALLERGY PREMPRO: PALPITATIONS: SIDE EFFECTS REVIEW OF SYSTEMS REVIEWED BY: PROVIDER: . CONSTITUTIONAL: ANY CHANGE IN YOUR MEDICAL CONDITION? YES PT STARTED ON PREDNISONE DAILY TO DIAGNOSE RHEUMATOID ARTHRITIS VS LUPUS VS FIBROMYALGIA . CHILLS NO . FEVER NO . INFECTION: DO YOU HAVE NEW INFECTIONS? NO . DO YOU HAVE HISTORY OF MRSA? NO . MUSCULOSKELETAL: ANY NEW PATTERNS OF PAIN OR NUMBNESS? NO . GASTROENTEROLOGY: ANY NEW CHANGE IN BOWEL CONTROL? NO . GENITOURINARY: ANY NEW CHANGE IN BLADDER CONTROL? NO . IS THERE A CHANCE YOU COULD BE ? NO . HEMATOLOGY/LYMPH: DO YOU TAKE ANY BLOOD THINNERS? (FOR EXAMPLE- COUMADIN, PLAVIX, AGGRENOX, PLATEL, PRADAXA, OR XARELTO) NO . WHEN WAS YOUR LAST DOSE? DATE: TIME: . NEUROLOGY: HAVE YOU FALLEN IN THE PAST 6 MONTHS? YES ABOUT TWO MONTHS AGO, GOT DIZZY AND FELL. HAS DISCUSSED WITH HER PHYSICIAN. . ANY NEW EXTREMITY NUMBNESS OR WEAKNESS? NO . CARDIOLOGY: DO YOU HAVE A PACEMAKER OR DEFIBRILLATOR? NO . RESPIRATORY: HAVE YOU BEEN SICK IN THE PAST WEEK? NO . FEVER NO . FLU LIKE SYMPTOMS? NO . COUGH NO . INTEGUMENTARY: DO YOU HAVE ANY RASHES OR OPEN SORES? NO . ALLERGIC/IMMUNO: ARE YOU ALLERGIC TO SHELLFISH OR IV DYE? NO . ANY NEW ALLERGIES? NO . PSYCHIATRIC: DO YOU HAVE THOUGHTS OF HURTING YOURSELF OR SOMEONE ELSE? NO . ARE YOU ABUSED, NEGLECTED, OR IN AN UNSAFE ENVIRONMENT? NO . ENDOCRINOLOGY: ARE YOU DIABETIC? NO . OTHER: DO YOU NEED ANY PRESCRIPTIONS? NO . IF YES, PLEASE LIST: ____ . ANY NEW PROBLEMS WITH YOUR MEDICATIONS? NO . WHEN DID YOU LAST EAT? ____01/08/17 0630 . WHEN DID YOU LAST DRINK? ____01/08/17 1415 . WHAT DID YOU LAST DRINK? ____WATER . NAME OF PERSON DRIVING YOU HOME? ____YELLOW CAB . DO YOU HAVE ANY OTHER QUESTIONS OR CONCERNS NO . VITAL SIGNS WT 115.0 LBS, HT 63 IN, BMI 20.37 INDEX, BP 105/68 MM HG, HR 78 /MIN, RR 16 /MIN, TEMP 98.6 F, OXYGEN SAT % 96%, SAFE IN ENV? (Y/N) YES, NA INITIALS TL 1438, REVIEWED BY: ASSESSMENTS MYALGIA - M79.1 (PRIMARY) PROCEDURES PN TRIGGER POINT INJECTION NO STEROIDS PRE PROCEDURE DIAGNOSIS 1. MYALGIA 2. PAIN AT LEFT LOWER BACK AREA POST PROCEDURE DIAGNOSIS 1. MYALGIA 2. PAIN AT LEFT LOWER BACK AREA PROCEDURE TRIGGER POINT INJECTION AT LEFT LOWER BACK AREA SURGEON DR. RUTHY AYERS CCO & PRESIDENT NONE ANESTHESIA LOCAL PRE PROCEDURE NOTE 51 YEAR-OLD PATIENT WITH HISTORY OF CHRONIC PAIN AT LEFT LOWER BACK AREA. I EVALUATED THE PATIENT AND REVIEWED THE CHART. THERE IS EVIDENCE OF BANDS OF TISSUE WITH RESTRICTION OF MOVEMENT AND PRESENCE OF TRIGGER POINT AT THE AFFECTED AREA. I WENT OVER THE RISKS, ALTERNATIVES, AND BENEFITS ASSOCIATED WITH THIS PROCEDURE. THE PATIENT WOULD LIKE TO PROCEED AND GAVE CONSENT TO PERFORM THE PROCEDURE. THE PATIENT DENIES UNEXPLAINABLE WEIGHT LOSS, FEVER, CHILLS, OR NEW CHANGES IN URINARY OR BOWEL CONTROL. DESCRIPTION OF PROCEDURE THE PATIENT WAS BROUGHT TO THE PROCEDURE ROOM AND PLACED IN THE SITTING PRONE POSITION. THE AREA WAS CLEANED WITH ALCOHOL. THE PROCEDURE WAS DONE USING ASEPTIC STERILE TECHNIQUES. I CHECKED LATERALITY AND THE LEVEL WHERE THE PROCEDURE WAS GOING TO BE PERFORMED WITH THE PATIENT AND THE SUPPORTING STAFF AT THE MOMENT OF THE TIME OUT IN THE PROCEDURE ROOM. USING A 25-GAUGE NEEDLE, TRIGGER POINTS WERE INJECTED AT THE LEFT LOWER BACK AREA WITH A TOTAL OF 40 ML OF BUPIVACAINE 0.25%. AGREED WITH THE PATIENT THE PROCEDURE WAS DONE WITHOUT STEROIDS. THERE WAS NO EVIDENCE OF BLOOD, PARESTHESIA OR CEREBROSPINAL FLUID DURING THE PROCEDURE. THE PATIENT WAS SENT TO THE RECOVERY ROOM. THE PATIENT WAS MOVING THE EXTREMITIES AND DOING WELL. THERE WAS NO COMPLICATION DURING THE PROCEDURE. POST PROCEDURE NOTE THE PATIENT WILL BE SEEN IN A FOLLOW UP IN THE NEXT FEW WEEKS. INSTRUCTIONS WERE GIVEN, QUESTIONS WERE ANSWERED, AND THE PATIENT EXPRESSED UNDERSTANDING AND AGREED WITH THE PLAN. I, SABIHA KEVIN, DOCUMENTED THE ABOVE INFORMATION ACTING A SCRIBE FOR DR. AYERS. I HAVE REVIEWED THE ABOVE DOCUMENT, WRITTEN BY SABIHA SHAMPINE SCRIBE AND I VERIFY THAT IT IS ACCURATE PROCEDURE CODES 23367 INJ TRIGGER POINT / MUSCL DISPOSITION & COMMUNICATION FOLLOW UP 3 WEEKS ELECTRONICALLY SIGNED BY RUTHY AYERS MD ON 01/13/2017 AT 08:42 PM EST DISCLAIMER : THIS IS A VISIT SUMMARY EXTRACTED FROM THE [employer] CHART. IT IS NOT A COPY OF THE [employer] PROGRESS NOTE. JOSE
== END ==
LOC: M PAIN 14:45
PROVIDERS: ATTEND Anesthesiology
DX: G89.29 Other chronic pain (principal); M54.5 Low back pain; M79.1 Myalgia; E03.9 Hypothyroidism, unspecified; J30.9 Allergic rhinitis, unspecified; R76.8 Other specified abnormal immunological findings in serum; I51.7 Cardiomegaly; M17.11 Unilateral primary osteoarthritis, right knee; Z88.5 Allergy status to narcotic agent; Z88.8 Allergy status to other drugs, medicaments and biological substances; Z79.891 Long term (current) use of opiate analgesic; Z79.899 Other long term (current) drug therapy

== ENCOUNTER → 2017-01-22 | Outpatient (CLI) | payer OTHER ==
[~2017-01-22] MED LIST changes: -BUPIVACAINE HCL 0.25% 10 ML VIAL As Ordered ONE; -BUPIVACAINE HCL 0.25% 30 ML VIAL As Ordered ONE; -diazePAM 5 MG TAB As Ordered ONE; -oxyCODONE 5MG TAB As Ordered ONE
--- NOTE | 2017-02-04 00:38 | ECWPNPC ---
PATIENT NAME: EVERETT BUSTILLO : 1965 GENDER: FEMALE VISIT DATE: 01/22/2017 DISCHARGE DATE: 01/22/17 1438 VISIT LOCKED DATE TIME: PHYSICIAN: ARMAND AUGUSTE PHYSICIAN PAGER NO: [phone] RESOURCE: ARMAND AUGUSTE REASON FOR APPOINTMENT 1. POST TPI HISTORY OF PRESENT ILLNESS HISTORY OF PRESENT ILLNESS: PAIN THE PATIENT DESCRIBES THE PAIN... FALL RISK SCREENING: SCREENING :NO FALLS IN THE PAST YEAR TODAY'S VISIT: NOTES: S/P TRIGGER POINTS TO LOW BACK COMPLETED ON 01/08/17 TO LOW BACK AREA. PAIN LEVEL PRIOR WAS /10 AND POST INJECTION WAS /10. TODAY IS NOTING INTENSE PAIN IN VARIOUS JOINTS INCLUDING RIGHT ELBOW, WRIST AND KNEE. WAS SEEN BY MECHANIC GENERAL OPERATIONAL TEST - HE HAS STARTED HER ON PREDNISONE.. CURRENT MEDICATIONS TAKING MULTIVITAMINS OTC TABLET 1 TABLET ORALLY ONCE A DAY TAKING BIOTIN OTC TABLET 1 TABLET ORALLY ONCE A DAY TAKING FLONASE 50 MCG/ACT SUSPENSION 1 PUFF IN EACH NOSTRIL NASALLY ONCE A DAY NEEDED TAKING CLARITIN 10 MG TABLET 1 TABLET ORALLY ONCE A DAY TAKING LEVOTHYROXINE SODIUM 88 MCG TABLET 1 TABLET ORALLY ONCE A DAY TAKING VALTREX 500MG TABLET 1 TAB PLANNED PARENTHOOD ORALLY BID TAKING ACIDOPHILUS - TABLET 1 TAB ORALLY DAILY TAKING PENLAC 8% SOLUTION 1 DROP TO AFFECTED TOE NAILS DAILY, CLEAN OFF WITH ALCOHOL EVERY 7 DAYS EXTERNALLY ONCE A DAY TAKING OMEPRAZOLE 20MG 20MG TABLET 1 TAB BEFORE MEAL ORAL ONCE A DAY TAKING BLACK COHOSH 40 MG CAPSULE ORALLY DAILY TAKING ZOFRAN ODT 4 MG TABLET DISPERSIBLE 1 TABLET ON THE TONGUE AND ALLOW TO DISSOLVE ORALLY EVERY 8 HRS PRN NAUSEA TAKING PERCOCET 5-325 MG TABLET 1 TABLET ORALLY ONCE PER DAY MDD=1 FOR PAIN NEEDED TAKING PREDNISONE 5 MG TABLET 1 TABLET ORALLY ONCE A DAY NOT-TAKING ASPIRIN CHILDRENS 81 MG TABLET CHEWABLE 1 TABLET ORALLY ONCE A DAY NOT-TAKING ACYCLOVIR 400 MG TABLET 1 TABLET ORALLY TWICE A DAY MEDICATION LIST REVIEWED AND RECONCILED WITH THE PATIENT PAST MEDICAL HISTORY HYPOTHYROIDISM ESOPHAGEAL REFLUX HS 2 DEPRESSION/ANXIETY SUBSTANCE ABUSE BARTHOLIN'S GLAND CYST SKIN CA NOSE--? BCCA ECHO 07/16: NORMAL (EF75%, NO ABNL) HOLTER 09/15: NORMAL, WAS IN NSR DURING SYMPTOMS ABPM 10/16:MEAN SBP 130S +RF 4/16, MILD RA SX (SEE 06/17 NOTE) DERMOID CYST RT PELVIS CT 2016 SJOGREN'S ALLERGIES DEMEROL: NAUSEA/VOMITING: ALLERGY REGLAN: EKG ABNORMALITIES: ALLERGY PREMPRO: PALPITATIONS: SIDE EFFECTS SOCIAL HISTORY GENERAL: TOBACCO USE ARE YOU A:NONSMOKER ALCOHOL SCREENING DID YOU HAVE A DRINK CONTAINING ALCOHOL IN THE PAST YEAR?YES HOW OFTEN DID YOU HAVE SIX OR MORE DRINKS ON ONE OCCASION IN THE PAST YEAR?LESS THAN MONTHLY (1 POINT) HOW MANY DRINKS DID YOU HAVE ON A TYPICAL DAY WHEN YOU WERE DRINKING IN THE PAST YEAR?1 OR 2 (0 POINTS) HOW OFTEN DID YOU HAVE A DRINK CONTAINING ALCOHOL IN THE PAST YEAR?TWO TO THREE TIMES PER WEEK (3 POINTS) POINTS4 INTERPRETATIONPOSITIVE RECREATIONAL DRUG USE DRUG USE?NO CAFFEINE CAFFEINE USE?NO ISLAM [id number] BUDDHISM LANGUAGE LANGUAGES SPOKEN:MACEDONIAN LEARNING BARRIERS / SPECIAL NEEDS CHANGE FROM LAST VISIT?NO BARRIERS TO LEARNING?NO HEARING IMPAIRED?NO VISION IMPAIRED?YES GLASSES FOR READING COGNITIVELY IMPAIRED?NO READINESS TO LEARN?YES LEARNING PREFERENCES?NO LEARNING CAPABILITIES PRESENT?YES EMOTIONAL BARRIERS?NO SPECIAL DEVICES?NO ASSEMBLER BONDING NEEDED?NO PAIN CLINIC PFS, CLERGY, PUBLIC HEALTH REFERRALS PFS REFERRAL NEEDED?NO CLERGY REFERRAL NEEDED?NO PUBLIC HEALTH REFERRAL NEEDED?NO WAS THE PROVIDER NOTIFIED OF ANY PERTINENT INFO?NO HAS THE PATIENT BEEN EDUCATED REGARDING HIS/HER PLAN OF CARE?YES HAS THE PATIENT BEEN EDUCATED REGARDING PAIN, THE RISK FOR PAIN, THE IMPORTANCE OF EFFECTIVE PAIN MANAGEMENT, AND THE PAIN ASSESSMENT PROCESS?YES PATIENT: ____. ADVANCE DIRECTIVES HEALTH CARE PROXY?NO WOULD YOU LIKE MORE INFORMATION?YES GIVEN DO YOU HAVE A DNR?NO WOULD YOU LIKE MORE INFORMATION?NO LIVING WILL?NO WOULD YOU LIKE MORE INFORMATION?NO POWER OF PRINT MACHINE OPERATOR?NO WOULD YOU LIKE MORE INFORMATION?NO DOMESTIC VIOLENCE DO YOU FEEL SAFE IN YOUR ENVIRONMENT?YES REVIEWED, NO CHANGES. REVIEW OF SYSTEMS REVIEWED BY: PROVIDER: . CONSTITUTIONAL: ANY CHANGE IN YOUR MEDICAL CONDITION? NO . CHILLS NO . FEVER NO . INFECTION: DO YOU HAVE NEW INFECTIONS? NO . DO YOU HAVE HISTORY OF MRSA? NO . MUSCULOSKELETAL: ANY NEW PATTERNS OF PAIN OR NUMBNESS? YES, PAIN IN RIGHT ELBOW AND DOWN TO WRIST . GASTROENTEROLOGY: ANY NEW CHANGE IN BOWEL CONTROL? NO . GENITOURINARY: ANY NEW CHANGE IN BLADDER CONTROL? NO . IS THERE A CHANCE YOU COULD BE ? NO . HEMATOLOGY/LYMPH: DO YOU TAKE ANY BLOOD THINNERS? (FOR EXAMPLE- COUMADIN, PLAVIX, AGGRENOX, PLATEL, PRADAXA, OR XARELTO) NO . WHEN WAS YOUR LAST DOSE? DATE: TIME: . NEUROLOGY: HAVE YOU FALLEN IN THE PAST 6 MONTHS? NO . ANY NEW EXTREMITY NUMBNESS OR WEAKNESS? NO . CARDIOLOGY: DO YOU HAVE A PACEMAKER OR DEFIBRILLATOR? NO . RESPIRATORY: HAVE YOU BEEN SICK IN THE PAST WEEK? NO . FEVER NO . FLU LIKE SYMPTOMS? NO . COUGH NO . INTEGUMENTARY: DO YOU HAVE ANY RASHES OR OPEN SORES? NO . ALLERGIC/IMMUNO: ARE YOU ALLERGIC TO SHELLFISH OR IV DYE? NO . ANY NEW ALLERGIES? NO . PSYCHIATRIC: DO YOU HAVE THOUGHTS OF HURTING YOURSELF OR SOMEONE ELSE? NO . ARE YOU ABUSED, NEGLECTED, OR IN AN UNSAFE ENVIRONMENT? NO . ENDOCRINOLOGY: ARE YOU DIABETIC? NO . OTHER: DO YOU NEED ANY PRESCRIPTIONS? NO . IF YES, PLEASE LIST: ____ . ANY NEW PROBLEMS WITH YOUR MEDICATIONS? NO . WHEN DID YOU LAST EAT? ____ . WHEN DID YOU LAST DRINK? ____ . WHAT DID YOU LAST DRINK? ____ . NAME OF PERSON DRIVING YOU HOME? ____ . DO YOU HAVE ANY OTHER QUESTIONS OR CONCERNS YES, ELBOW, WRIST AND KNEE ARE PAINFUL. BACK IS PRETTY GOOD. . VITAL SIGNS WT 117.2 LBS, HT 63 IN, BMI 20.76 INDEX, BP 116/76 MM HG, HR 74 /MIN, RR 18 /MIN, TEMP 97.8 F, OXYGEN SAT % 98%, SAFE IN ENV? (Y/N) YES, NA INITIALS NV 13:29, REVIEWED BY: SHAUNA. EXAMINATION GENERAL EXAMINATION: PSYCHALERT , ORIENTED X 3 , APPROPRIATE MOOD AND AFFECT , VERY TALKATIVE. LUNGS:BILATERAL RHONCHI, CLEARED WITH COUGH . MUSCULOSKELETAL:MUSCLE STRENGTH TESTING 5/5 BILATERAL UPPER AND LOWER EXTREMITES, TRIGGER POINTS AND TIGHT FIBROUS BANDS OVER TRAPEZIUS AND LUMBAR PARAVERTEBRAL MUSCLES. EZXQUISITE TENDERNESS OVER RIGHT FIRST EXTENSOR TENDON. . ASSESSMENTS MYALGIA - M79.1 (PRIMARY) CHRONIC PRESCRIPTION OPIATE USE - Z79.891 TENDONITIS OF ELBOW, RIGHT - M77.8 TREATMENT MYALGIA REFILL PREDNISONE TABLET, 5 MG, 1 TABLET, ORALLY, ONCE A DAY, 30 DAY(S), 30 TABLET, REFILLS 0 TRIGGER POINT 3 + ARMAND GUERRERO 01/22/2017 2:25:17 PM > NECK/SHOULDERS/UPPER BACK NOTES: GUILLAUME WRAP OR ARM SPLINT TO RIGHT FOREARM.KEEP FOLLOWUP WITH RHEUMATOLOGISTICE TO RIGHT ELBOW. PREVENTIVE MEDICINE PAIN CLINIC TEACHING: PROCEDURE TEACHING PRE-PROCEDURE TEACHING DONE AND PATIENT VERBALIZES UNDERSTANDING.. PROCEDURE CODES FA211 ESTABILISHED PATIENT [facility] CHARGE DISPOSITION & COMMUNICATION FOLLOW UP REASON: BACK PAIN ELECTRONICALLY SIGNED BY SAVITA ALAS ON 02/02/2017 AT 12:34 PM EST DISCLAIMER : THIS IS A VISIT SUMMARY EXTRACTED FROM THE [employer] CHART. IT IS NOT A COPY OF THE [employer] PROGRESS NOTE. JOSE
== END ==
LOC: M PAIN 13:15
PROVIDERS: ATTEND Nurse Practitioner Family
DX: G89.29 Other chronic pain (principal); M77.8 Other enthesopathies, not elsewhere classified; M79.1 Myalgia; F43.22 Adjustment disorder with anxiety; E03.9 Hypothyroidism, unspecified; F32.9 Major depressive disorder, single episode, unspecified; F41.9 Anxiety disorder, unspecified; Z88.5 Allergy status to narcotic agent; Z88.8 Allergy status to other drugs, medicaments and biological substances; Z79.891 Long term (current) use of opiate analgesic; Z79.899 Other long term (current) drug therapy

== ENCOUNTER → 2017-02-14 | Outpatient (CLI) | payer OTHER ==
[~2017-02-14] MED LIST changes: +BUPIVACAINE HCL 0.25% 10 ML VIAL As Ordered ONE; +BUPIVACAINE HCL 0.25% 30 ML VIAL As Ordered ONE; +TRIAMCINOLONE ACETONIDE SUSP 40 MG/ML VIAL (J3301) As Ordered ONE; +diazePAM 5 MG TAB As Ordered ONE; +oxyCODONE 5MG TAB As Ordered ONE
--- NOTE | 2017-02-25 23:57 | ECWPNPC ---
PATIENT NAME: EVERETT BUSTILLO : 1965 GENDER: FEMALE VISIT DATE: 02/14/2017 DISCHARGE DATE: 02/14/17 1445 VISIT LOCKED DATE TIME: PHYSICIAN: RUTHY AYERS PHYSICIAN PAGER NO: [phone] RESOURCE: RUTHY AYERS REASON FOR APPOINTMENT 1. TPI HISTORY OF PRESENT ILLNESS HISTORY OF PRESENT ILLNESS: PAIN THE PATIENT DESCRIBES THE PAIN... FALL RISK SCREENING: SCREENING :NO FALLS IN THE PAST YEAR CURRENT MEDICATIONS TAKING MULTIVITAMINS OTC TABLET 1 TABLET ORALLY ONCE A DAY, NOTES: 5 DAYS AGO TAKING BIOTIN OTC TABLET 1 TABLET ORALLY ONCE A DAY, NOTES: 3 DAYS AGO TAKING FLONASE 50 MCG/ACT SUSPENSION 1 PUFF IN EACH NOSTRIL NASALLY ONCE A DAY NEEDED, NOTES: 0 TAKING CLARITIN 10 MG TABLET 1 TABLET ORALLY ONCE A DAY, NOTES: 02/13/17@1830 TAKING LEVOTHYROXINE SODIUM 88 MCG TABLET 1 TABLET ORALLY ONCE A DAY, NOTES: 034 TAKING VALTREX 500MG TABLET 1 TAB PLANNED PARENTHOOD ORALLY BID, NOTES: 0340 TAKING ACIDOPHILUS - TABLET 1 TAB ORALLY DAILY, NOTES: 0340 TAKING PENLAC 8% SOLUTION 1 DROP TO AFFECTED TOE NAILS DAILY, CLEAN OFF WITH ALCOHOL EVERY 7 DAYS EXTERNALLY ONCE A DAY, NOTES: 2 MONTHS AGO TAKING OMEPRAZOLE 20MG 20MG TABLET 1 TAB BEFORE MEAL ORAL ONCE A DAY, NOTES: 3 DAYS AGO TAKING BLACK COHOSH 40 MG CAPSULE ORALLY DAILY, NOTES: 1 WEEK AGO TAKING ZOFRAN ODT 4 MG TABLET DISPERSIBLE 1 TABLET ON THE TONGUE AND ALLOW TO DISSOLVE ORALLY EVERY 8 HRS PRN NAUSEA, NOTES: 02/12/17@1400 TAKING PERCOCET 5-325 MG TABLET 1 TABLET ORALLY ONCE PER DAY MDD=1 FOR PAIN NEEDED, NOTES: 02/12/17@1900 TAKING NAPROXEN 500 MG TABLET 1 TAB ORALLY EVERY 4 HOURS NEEDED DISCONTINUED PREDNISONE 5 MG TABLET 1 TABLET ORALLY ONCE A DAY DISCONTINUED ASPIRIN CHILDRENS 81 MG TABLET CHEWABLE 1 TABLET ORALLY ONCE A DAY UNKNOWN ACYCLOVIR 400 MG TABLET 1 TABLET ORALLY TWICE A DAY MEDICATION LIST REVIEWED AND RECONCILED WITH THE PATIENT PAST MEDICAL HISTORY HYPOTHYROIDISM ESOPHAGEAL REFLUX HS 2 DEPRESSION/ANXIETY SUBSTANCE ABUSE BARTHOLIN'S GLAND CYST SKIN CA NOSE--? BCCA ECHO 07/16: NORMAL (EF75%, NO ABNL) HOLTER 09/15: NORMAL, WAS IN NSR DURING SYMPTOMS ABPM 10/16:MEAN SBP 130S +RF 06/17, MILD RA SX (SEE 06/17 NOTE) DERMOID CYST RT PELVIS CT 2016 SJOGREN'S ALLERGIES DEMEROL: NAUSEA/VOMITING: ALLERGY REGLAN: EKG ABNORMALITIES: ALLERGY PREMPRO: PALPITATIONS: SIDE EFFECTS SOCIAL HISTORY GENERAL: TOBACCO USE ARE YOU A:NONSMOKER ALCOHOL SCREENING DID YOU HAVE A DRINK CONTAINING ALCOHOL IN THE PAST YEAR?YES HOW OFTEN DID YOU HAVE SIX OR MORE DRINKS ON ONE OCCASION IN THE PAST YEAR?LESS THAN MONTHLY (1 POINT) HOW MANY DRINKS DID YOU HAVE ON A TYPICAL DAY WHEN YOU WERE DRINKING IN THE PAST YEAR?1 OR 2 (0 POINTS) HOW OFTEN DID YOU HAVE A DRINK CONTAINING ALCOHOL IN THE PAST YEAR?TWO TO THREE TIMES PER WEEK (3 POINTS) POINTS4 INTERPRETATIONPOSITIVE RECREATIONAL DRUG USE DRUG USE?NO CAFFEINE CAFFEINE USE?NO ROMAN CATHOLIC [id number] RELIGIOUS LANGUAGE LANGUAGES SPOKEN:COLOMBIAN LEARNING BARRIERS / SPECIAL NEEDS CHANGE FROM LAST VISIT?NO BARRIERS TO LEARNING?NO HEARING IMPAIRED?NO VISION IMPAIRED?YES GLASSES FOR READING COGNITIVELY IMPAIRED?NO READINESS TO LEARN?YES LEARNING PREFERENCES?NO LEARNING CAPABILITIES PRESENT?YES EMOTIONAL BARRIERS?NO SPECIAL DEVICES?NO PROCUREMENT SERVICES MANAGER NEEDED?NO PAIN CLINIC PFS, CLERGY, PUBLIC HEALTH REFERRALS PFS REFERRAL NEEDED?NO CLERGY REFERRAL NEEDED?NO PUBLIC HEALTH REFERRAL NEEDED?NO WAS THE PROVIDER NOTIFIED OF ANY PERTINENT INFO?NO HAS THE PATIENT BEEN EDUCATED REGARDING HIS/HER PLAN OF CARE?YES HAS THE PATIENT BEEN EDUCATED REGARDING PAIN, THE RISK FOR PAIN, THE IMPORTANCE OF EFFECTIVE PAIN MANAGEMENT, AND THE PAIN ASSESSMENT PROCESS?YES PATIENT: ____. ADVANCE DIRECTIVES HEALTH CARE PROXY?NO WOULD YOU LIKE MORE INFORMATION?YES GIVEN DO YOU HAVE A DNR?NO WOULD YOU LIKE MORE INFORMATION?NO LIVING WILL?NO WOULD YOU LIKE MORE INFORMATION?NO POWER OF INLAYER?NO WOULD YOU LIKE MORE INFORMATION?NO DOMESTIC VIOLENCE DO YOU FEEL SAFE IN YOUR ENVIRONMENT?YES REVIEWED, NO CHANGES. REVIEW OF SYSTEMS REVIEWED BY: PROVIDER: . CONSTITUTIONAL: ANY CHANGE IN YOUR MEDICAL CONDITION? NO . CHILLS NO . FEVER NO . INFECTION: DO YOU HAVE NEW INFECTIONS? NO . DO YOU HAVE HISTORY OF MRSA? NO . MUSCULOSKELETAL: ANY NEW PATTERNS OF PAIN OR NUMBNESS? NO . GASTROENTEROLOGY: ANY NEW CHANGE IN BOWEL CONTROL? NO . GENITOURINARY: ANY NEW CHANGE IN BLADDER CONTROL? NO . IS THERE A CHANCE YOU COULD BE ? NO . HEMATOLOGY/LYMPH: DO YOU TAKE ANY BLOOD THINNERS? (FOR EXAMPLE- COUMADIN, PLAVIX, AGGRENOX, PLATEL, PRADAXA, OR XARELTO) NO . WHEN WAS YOUR LAST DOSE? DATE: TIME: . NEUROLOGY: HAVE YOU FALLEN IN THE PAST 6 MONTHS? NO . ANY NEW EXTREMITY NUMBNESS OR WEAKNESS? NO . CARDIOLOGY: DO YOU HAVE A PACEMAKER OR DEFIBRILLATOR? NO . RESPIRATORY: HAVE YOU BEEN SICK IN THE PAST WEEK? NO . FEVER NO . FLU LIKE SYMPTOMS? NO . COUGH NO . INTEGUMENTARY: DO YOU HAVE ANY RASHES OR OPEN SORES? NO . ALLERGIC/IMMUNO: ARE YOU ALLERGIC TO SHELLFISH OR IV DYE? NO . ANY NEW ALLERGIES? NO . PSYCHIATRIC: DO YOU HAVE THOUGHTS OF HURTING YOURSELF OR SOMEONE ELSE? NO . ARE YOU ABUSED, NEGLECTED, OR IN AN UNSAFE ENVIRONMENT? NO . ENDOCRINOLOGY: ARE YOU DIABETIC? NO . OTHER: DO YOU NEED ANY PRESCRIPTIONS? NO . IF YES, PLEASE LIST: ____ . ANY NEW PROBLEMS WITH YOUR MEDICATIONS? NO . WHEN DID YOU LAST EAT? ____0530 . WHEN DID YOU LAST DRINK? ____1230 . WHAT DID YOU LAST DRINK? ____WATER . NAME OF PERSON DRIVING YOU HOME? ____YELLOW CAB . DO YOU HAVE ANY OTHER QUESTIONS OR CONCERNS NO . VITAL SIGNS WT 115.0 LBS, HT 63 IN, BMI 20.37 INDEX, BP 121/65 MM HG, HR 97 /MIN, RR 16 /MIN, TEMP 97.3 F, OXYGEN SAT % 100%, NA INITIALS TL 1252. ASSESSMENTS MYALGIA - M79.1 (PRIMARY) PROCEDURES PN TRIGGER POINT INJECTION WITH STEROIDS PRE PROCEDURE DIAGNOSIS 1. MYALGIA 2. PAIN AT LEFT NECK AREA, BILATERAL SHOULDER AREA, AND LEFT THORACIC AREA POST PROCEDURE DIAGNOSIS 1. MYALGIA 2. PAIN AT LEFT NECK AREA, BILATERAL SHOULDER AREA, AND LEFT THORACIC AREA PROCEDURE TRIGGER POINT INJECTION AT LEFT NECK AREA, BILATERAL SHOULDER AREA, AND LEFT THORACIC AREA SURGEON DR. RUTHY AYERS MELT SUPERVISOR NONE ANESTHESIA LOCAL PRE PROCEDURE NOTE THE PATIENT HAS A HISTORY OF CHRONIC PAIN AT THE LEFT NECK AREA, RIGHT AND LEFT SHOULDER AREA, AND LEFT THORACIC AREA. I EVALUATE THE PATIENT AND REVIEWED THE CHART. THERE IS EVIDENCE OF BANDS OF TISSUE WITH RESTRICTION OF MOVEMENT AND PRESENCE OF TRIGGER POINT AT THE AFFECTED AREA. I WENT OVER THE RISKS, ALTERNATIVES, AND BENEFITS ASSOCIATED WITH THIS PROCEDURE. THE PATIENT WOULD LIKE TO PROCEED AND GIVE CONSENT TO PERFORMED THE PROCEDURE. THE PATIENT DENIES UNEXPLAINABLE WEIGHT LOSS, FEVER, CHILLS, OR NEW CHANGES IN URINARY OR BOWEL CONTROL DESCRIPTION OF PROCEDURE THE PATIENT WAS BROUGHT TO THE PROCEDURE ROOM AND PLACED IN THE SITTING POSITION. THE AREA WAS CLEANED WITH ALCOHOL. THE PROCEDURE WAS DONE USING ASEPTIC STERILE TECHNIQUE. I CHECKED LATERALITY AND THE LEVEL WHERE THE PROCEDURE WAS GOING TO BE PERFORMED WITH THE PATIENT AND THE SUPPORTING STAFF AT THE MOMENT OF THE TIME OUT IN THE PROCEDURE ROOM. USING A 25-GAUGE NEEDLE, TRIGGER POINTS WERE INJECTED AT THE LEFT NECK AREA, RIGHT AND LEFT SHOULDER AREA, AND LEFT THORACIC AREA WITH A TOTAL OF 40 ML OF BUPIVACAINE 0.25% AND KENALOG 40 MG. THERE WAS NO EVIDENCE OF BLOOD, PARESTHESIA OR CEREBROSPINAL FLUID DURING THE PROCEDURE. THE PATIENT WAS SENT TO THE RECOVERY ROOM. THE PATIENT WAS MOVING THE EXTREMITIES AND DOING WELL. THERE WAS NO COMPLICATION DURING THE PROCEDURE POST PROCEDURE NOTE THE PATIENT WILL BE SEEN IN A FOLLOW UP IN THE NEXT FEW WEEKS. INSTRUCTIONS WERE GIVEN, QUESTIONS WERE ANSWERED, AND THE PATIENT EXPRESSED UNDERSTANDING AND AGREES WITH THE PLAN. I, SABIHA KEVIN, DOCUMENTED THE ABOVE INFORMATION ACTING A SCRIBE FOR DR. AYERS. I, DR. AYERS, HAVE REVIEWED THE ABOVE DOCUMENT, SCRIBED BY SABIHA KEVIN, AND I VERIFY THAT IT IS ACCURATE PROCEDURE CODES 51262 INJECT TRIGGER POINTS 3/> DISPOSITION & COMMUNICATION FOLLOW UP 3 WEEKS ELECTRONICALLY SIGNED BY RUTHY AYERS MD ON 02/25/2017 AT 11:02 PM EST DISCLAIMER : THIS IS A VISIT SUMMARY EXTRACTED FROM THE [employer] CHART. IT IS NOT A COPY OF THE [employer] PROGRESS NOTE. MTDDenise
== END ==
LOC: M PAIN 13:00
PROVIDERS: ATTEND Anesthesiology
DX: G89.29 Other chronic pain (principal); M79.1 Myalgia; Z79.891 Long term (current) use of opiate analgesic; Z79.899 Other long term (current) drug therapy; Z88.8 Allergy status to other drugs, medicaments and biological substances
CPT/HCPCS: 20553; J3301

== ENCOUNTER → 2017-03-07 | Outpatient (CLI) | payer OTHER | LOC: M PAIN 14:30 | DX: M79.1 Myalgia (principal); E03.9 Hypothyroidism, unspecified; K21.9 Gastro-esophageal reflux disease without esophagitis; Z79.891 Long term (current) use of opiate analgesic; Z79.899 Other long term (current) drug therapy; Z88.5 Allergy status to narcotic agent; Z88.8 Allergy status to other drugs, medicaments and biological substances | CPT/HCPCS: G0463 ==

== ENCOUNTER → 2017-04-19 | Outpatient (CLI) | payer OTHER ==
[~2017-04-19] MED LIST changes: -ASPI-161 PO; -BENA25CA4 PO; -BLAC20TA PO; +BUPIVACAINE HCL 0.25% 10 ML VIAL As Ordered; -BUPIVACAINE HCL 0.25% 10 ML VIAL As Ordered ONE; +BUPIVACAINE HCL 0.25% 30 ML VIAL As Ordered; -BUPIVACAINE HCL 0.25% 30 ML VIAL As Ordered ONE; -COLA100C5 PO; -FLON1SPR; -IBUP-1022 PO; -LEVO100T5 PO; -MULT1TAB18 PO; -OMEP20CA3 PO; -OXYC1TAB23 PO; -PREM.6256 PO; +TRIAMCINOLONE ACETONIDE SUSP 40 MG/ML VIAL (J3301) As Ordered; -TRIAMCINOLONE ACETONIDE SUSP 40 MG/ML VIAL (J3301) As Ordered ONE; -VALT500T PO; +diazePAM 5 MG TAB As Ordered; -diazePAM 5 MG TAB As Ordered ONE; +oxyCODONE 5MG TAB As Ordered; -oxyCODONE 5MG TAB As Ordered ONE
== END ==
LOC: M PAIN 10:45
DX: G89.29 Other chronic pain (principal); M54.2 Cervicalgia; M25.511 Pain in right shoulder; M25.512 Pain in left shoulder; M79.1 Myalgia; K21.9 Gastro-esophageal reflux disease without esophagitis; F32.9 Major depressive disorder, single episode, unspecified; F41.9 Anxiety disorder, unspecified; M35.00 Sjogren syndrome, unspecified; J30.9 Allergic rhinitis, unspecified; Z79.891 Long term (current) use of opiate analgesic; Z79.899 Other long term (current) drug therapy; Z88.5 Allergy status to narcotic agent; Z88.8 Allergy status to other drugs, medicaments and biological substances; Z86.59 Personal history of other mental and behavioral disorders
CPT/HCPCS: J3301

== ENCOUNTER 2017-05-09 07:01 | Day surgery (SDC) | payer OTHER ==
[2017-05-09] MEDS: NS 1,000 ML IV (07:00)
[2017-05-09] MEDS ORDERED: PROPOFOL 200 MG/20 ML VIAL As Ordered ×2 (08:00)
== END 2017-05-09 09:23 | disposition home or self-care (01) ==
LOC: M OPP 07:01
DX: Z12.11 Encounter for screening for malignant neoplasm of colon (principal); E05.00 Thyrotoxicosis with diffuse goiter without thyrotoxic crisis or storm; E03.9 Hypothyroidism, unspecified; K21.9 Gastro-esophageal reflux disease without esophagitis; R12 Heartburn; F41.9 Anxiety disorder, unspecified; M35.00 Sjogren syndrome, unspecified; M19.90 Unspecified osteoarthritis, unspecified site; M06.9 Rheumatoid arthritis, unspecified; M54.89 Other dorsalgia; M54.2 Cervicalgia; J01.90 Acute sinusitis, unspecified; F12.10 Cannabis abuse, uncomplicated; Z88.8 Allergy status to other drugs, medicaments and biological substances; Z88.5 Allergy status to narcotic agent; Z79.899 Other long term (current) drug therapy; Z80.41 Family history of malignant neoplasm of ovary; Z80.49 Family history of malignant neoplasm of other genital organs; Z80.42 Family history of malignant neoplasm of prostate
CPT/HCPCS: G0121

== ENCOUNTER → 2017-05-13 | Outpatient (CLI) | payer OTHER | LOC: M PAIN 10:45 | DX: M79.1 Myalgia (principal); M54.2 Cervicalgia; E05.90 Thyrotoxicosis, unspecified without thyrotoxic crisis or storm; K21.9 Gastro-esophageal reflux disease without esophagitis; Z79.891 Long term (current) use of opiate analgesic; Z79.899 Other long term (current) drug therapy; J30.2 Other seasonal allergic rhinitis; Z88.8 Allergy status to other drugs, medicaments and biological substances | CPT/HCPCS: G0463 ==

== ENCOUNTER 2017-06-13 14:38 | Emergency (ER) | payer OTHER ==
[2017-06-13] MEDS: KETOROLAC 30 MG/ML VIAL (J1885) IM (16:07)
== END 2017-06-13 17:06 | disposition home or self-care (01) ==
LOC: M ED 14:38
DX: S30.0XXA Contusion of lower back and pelvis, initial encounter (principal); W10.9XXA Fall (on) (from) unspecified stairs and steps, initial encounter; Y92.099 Unspecified place in other non-institutional residence as the place of occurrence of the external cause; Y93.9 Activity, unspecified; G89.29 Other chronic pain; M54.9 Dorsalgia, unspecified; F41.9 Anxiety disorder, unspecified; F32.9 Major depressive disorder, single episode, unspecified; E05.90 Thyrotoxicosis, unspecified without thyrotoxic crisis or storm; M25.78 Osteophyte, vertebrae; Z79.899 Other long term (current) drug therapy; Z88.8 Allergy status to other drugs, medicaments and biological substances
CPT/HCPCS: J1885

== ENCOUNTER → 2017-06-21 | Outpatient (REF) | payer OTHER ==
[2017-06-21 16:43] LABS: FREE T4 1.04 NG/DL (0.76-1.46)
[2017-06-21 16:43] LABS: THYROID STIMULATING HORMONE 0.298 uIU/ML (0.358-3.740)
== END ==
LOC: M LABDRAW1 14:48
DX: E89.0 Postprocedural hypothyroidism (principal)

== ENCOUNTER → 2017-07-22 | Outpatient (CLI) | payer OTHER | LOC: M WHC 09:06 | DX: M85.89 Other specified disorders of bone density and structure, multiple sites (principal) | CPT/HCPCS: 77080 ==

== ENCOUNTER → 2017-08-26 | Outpatient (CLI) | payer OTHER | LOC: M PAIN 12:15 | DX: M79.1 Myalgia (principal); M54.2 Cervicalgia; M46.1 Sacroiliitis, not elsewhere classified; E03.9 Hypothyroidism, unspecified; K21.9 Gastro-esophageal reflux disease without esophagitis; F32.9 Major depressive disorder, single episode, unspecified; F41.9 Anxiety disorder, unspecified; M35.00 Sjogren syndrome, unspecified; J30.9 Allergic rhinitis, unspecified; Z79.891 Long term (current) use of opiate analgesic; Z79.899 Other long term (current) drug therapy; Z88.5 Allergy status to narcotic agent; Z88.8 Allergy status to other drugs, medicaments and biological substances; Z86.59 Personal history of other mental and behavioral disorders | CPT/HCPCS: G0463 ==

== ENCOUNTER → 2017-09-02 | Outpatient (CLI) | payer OTHER ==
[~2017-09-02] MED LIST changes: -BUPIVACAINE HCL 0.25% 10 ML VIAL As Ordered; +ISOVUE-M 300 61% 15ML VIAL (Q9967) As Ordered; +LIDOCAINE 1% SDV INJ 30 ML VIAL As Ordered
== END ==
LOC: M PAIN 10:15
DX: G89.29 Other chronic pain (principal); M46.1 Sacroiliitis, not elsewhere classified; M53.88 Other specified dorsopathies, sacral and sacrococcygeal region; E03.9 Hypothyroidism, unspecified; F32.9 Major depressive disorder, single episode, unspecified; F41.9 Anxiety disorder, unspecified; J30.9 Allergic rhinitis, unspecified; K21.9 Gastro-esophageal reflux disease without esophagitis; Z79.891 Long term (current) use of opiate analgesic; Z79.899 Other long term (current) drug therapy; Z88.5 Allergy status to narcotic agent; Z88.8 Allergy status to other drugs, medicaments and biological substances; Z86.59 Personal history of other mental and behavioral disorders
CPT/HCPCS: J3301

== ENCOUNTER → 2017-11-25 | Outpatient (REF) | payer OTHER ==
[2017-11-25 13:56] LABS: TOTAL 25(OH) VITAMIN D 30.9 NG/ML (30.0-100.0)
== END ==
LOC: M LABDRWAD 12:31
DX: E89.0 Postprocedural hypothyroidism (principal); E55.9 Vitamin D deficiency, unspecified

== ENCOUNTER → 2017-12-16 | Outpatient (CLI) | payer OTHER | LOC: M PAIN 14:45 | DX: G89.29 Other chronic pain (principal); M46.1 Sacroiliitis, not elsewhere classified; M53.88 Other specified dorsopathies, sacral and sacrococcygeal region; E03.9 Hypothyroidism, unspecified; K21.9 Gastro-esophageal reflux disease without esophagitis; F32.9 Major depressive disorder, single episode, unspecified; F41.9 Anxiety disorder, unspecified; M35.00 Sjogren syndrome, unspecified; J30.89 Other allergic rhinitis; Z79.899 Other long term (current) drug therapy; Z88.5 Allergy status to narcotic agent; Z88.8 Allergy status to other drugs, medicaments and biological substances; Z86.59 Personal history of other mental and behavioral disorders | CPT/HCPCS: J3301 ==

== ENCOUNTER → 2017-12-30 | Outpatient (CLI) | payer OTHER | LOC: M PAIN 11:00 | DX: M46.1 Sacroiliitis, not elsewhere classified (principal); M79.18 Myalgia, other site; M51.37 Other intervertebral disc degeneration, lumbosacral region; E03.9 Hypothyroidism, unspecified; K21.9 Gastro-esophageal reflux disease without esophagitis; F32.9 Major depressive disorder, single episode, unspecified; F41.9 Anxiety disorder, unspecified; M35.00 Sjogren syndrome, unspecified; J30.9 Allergic rhinitis, unspecified; Z79.899 Other long term (current) drug therapy; Z88.5 Allergy status to narcotic agent; Z88.8 Allergy status to other drugs, medicaments and biological substances; Z86.59 Personal history of other mental and behavioral disorders | CPT/HCPCS: G0463 ==

== ENCOUNTER → 2017-12-31 | Outpatient (CLI) | payer OTHER | LOC: M WHC 06:50 | DX: Z12.31 Encounter for screening mammogram for malignant neoplasm of breast (principal); N60.31 Fibrosclerosis of right breast; N60.32 Fibrosclerosis of left breast | CPT/HCPCS: 77067 ==

== ENCOUNTER 2018-05-29 20:29 | Emergency (ER) | payer OTHER ==
[~2018-05-29] VITALS: Ht 160 cm; Wt 52.3 kg
[~2018-05-29 20:29] MED LIST changes: +ASPI-161 PO; +BENA25CA4 PO; +BIOT50004 PO; +BLAC20TA PO; -BUPIVACAINE HCL 0.25% 30 ML VIAL As Ordered; +CEFU1TAB20 PO; +CETI10TA; +COLA100C5 PO; +CYCL5TAB PO; +FLON1SPR; +IBUP-1022 PO; -ISOVUE-M 300 61% 15ML VIAL (Q9967) As Ordered; +LEVO100T5 PO; -LIDOCAINE 1% SDV INJ 30 ML VIAL As Ordered; +MULT1TAB18 PO; +NAPR-885 PO; +OMEP20CA3 PO; +OXYC1TAB23 PO; +PRED20TA PO; +PREM.6256 PO; +ROBA500T PO; -TRIAMCINOLONE ACETONIDE SUSP 40 MG/ML VIAL (J3301) As Ordered; +VALT500T PO; +ZOFR4TAB16 PO; +ZYRT10CA PO; -diazePAM 5 MG TAB As Ordered; -oxyCODONE 5MG TAB As Ordered
[2018-05-29] MEDS ORDERED: KETOROLAC 30 MG/ML VIAL (J1885) IV ONE (21:15)
[2018-05-29] MEDS ORDERED: ALBUTEROL SULFATE 2.5 MG/0.5 ML INH NEB SOLN INH ONE (21:15)
[2018-05-29] MEDS ORDERED: IPRATROPIUM 0.5MG/ALBUTEROL 2.5MG INH SOL UD 3ML (DUONEB)(J7620) NEB ONE (21:15)
[2018-05-29 21:24] LABS: BASO % 0.3 % (0.0-1.0); EOS # 0.6 10^3/uL (0.0-0.50); EOS % 4.9 % (0.0-3.0); HEMATOCRIT 41.5 % (36.0-47.0); HEMOGLOBIN 13.8 g/dl (12.0-15.5); LYMPH # 3.7 10^3/uL (1.5-4.5); LYMPH % 31.2 % (24.0-44.0); MEAN CORPUSCULAR HEMOGLOBIN 31.9 pg (27.0-33.0); MEAN CORPUSCULAR HGB CONC 33.3 g/dl (32.0-36.5); MEAN CORPUSCULAR VOLUME 95.8 fl (80.0-96.0); MONO # 0.8 10^3/uL (0.0-0.8); MONO % 6.9 % (0.0-5.0); NEUTROPHILS # 6.8 10^3/uL (1.8-7.7); NEUTROPHILS % 56.3 % (36.0-66.0); PLATELET COUNT, AUTOMATED 345 10^3/uL (150-450); RED BLOOD COUNT 4.33 10^6/uL (4.00-5.40)
[2018-05-29 21:27] LABS: INR 0.95; PROTHROMBIN TIME 12.8 SECONDS (12.1-14.4)
[2018-05-29 21:28] LABS: PARTIAL THROMBOPLASTIN TIME 32.2 SECONDS (25.4-37.6)
[2018-05-29 21:31] LABS: D-DIMER QUANT 482.72 ng/ml (<500)
[2018-05-29 21:37] LABS: ALBUMIN 3.9 GM/DL (3.2-5.2); ALT/SGPT 21 U/L (12-78); BILIRUBIN,DIRECT < 0.1 MG/DL (0.0-0.2); BILIRUBIN,TOTAL 0.3 MG/DL (0.2-1.0); BLOOD UREA NITROGEN 17 MG/DL (7-18); CALCIUM LEVEL 8.8 MG/DL (8.5-10.1); CARBON DIOXIDE LEVEL 28 MEQ/L (21-32); CHLORIDE LEVEL 105 MEQ/L (98-107); CPK CREATINE PHOSPHOKINASE 45 U/L (26-192); CREATININE FOR GFR 1.18 MG/DL (0.55-1.30); FREE T4 1.12 NG/DL (0.76-1.46); GLOMERULAR FILTRATION RATE 51.4 (>51); GLUCOSE, FASTING 95 MG/DL (70-100); MB/CK RELATIVE INDEX 2.44 (< OR =4); NT-PRO BNP 32 PG/ML (<125); SODIUM LEVEL 140 MEQ/L (136-145); THYROID STIMULATING HORMONE 0.896 uIU/ML (0.358-3.740); TOTAL PROTEIN 6.9 GM/DL (6.4-8.2); TROPONIN I < 0.02 NG/ML (< 0.10)
[2018-05-29 21:53] LABS: ERYTHROCYTE SEDIMENTATION RATE 8 mm/hr (0-30)
[2018-05-29] MEDS ORDERED: AUGMENTIN 875 MG TAB PO ONE (22:15)
[2018-05-29] MEDS ORDERED: dexameTHASONE 4 MG/ML 1ML VIAL (J1100) IV ONE (22:15)
[2018-05-29] MEDS ORDERED: PRED20TA PO ×2 (22:18→23:16)
[2018-05-29] MEDS ORDERED: FLUC150T PO ×2 (22:18→23:16)
[2018-05-29] MEDS ORDERED: AUGM875T28 PO ×2 (22:18→23:16)
--- NOTE | 2018-05-29 22:30 | REP ---
Clinical: Acute chest pain . Comparison: None . Findings: The mediastinum and cardiac silhouette are stable and within normal limits for portable technique. The lung cedeno are clear without acute consolidation, effusion, or pneumothorax. Skeletal structures are intact. Impression: No acute cardiopulmonary process appreciated. Electronically Signed by Tom Ritter MD 05/29/2018 10:21 P
[2018-05-29 23:00] VITALS: BP 127/64
--- NOTE | 2018-05-30 17:01 | ECGEPIP ---
Stationary ECG Study [facility] - ED Test Date: 2018-05-29 Pat Name: EVERETT BUSTILLO Department: Room: - Gender: F Information Manager: : 1965 Requested By: TORIBIO BUI Order Number: [id number] Reading MD: Tarik Cutler Measurements Intervals [place] Rate: 69 P: 66 NC: 139 QRS: 70 QRSD: 86 T: 77 QT: 388 QTc: 418 Interpretive Statements SINUS RHYTHM POSSIBLE LEFT ATRIAL ENLARGEMENT POSSIBLE RIGHT VENTRICULAR CONDUCTION DELAY MINIMAL ST DEPRESSION 05/17/[address] T WAVE CHANGES Electronically Signed On 05-30-2018 17:00:46 EDT by Tarik Cutler
== END 2018-05-29 23:15 | disposition home or self-care (01) ==
LOC: M ED 20:29
DX: J20.9 Acute bronchitis, unspecified (principal); K21.9 Gastro-esophageal reflux disease without esophagitis; F41.9 Anxiety disorder, unspecified; F33.9 Major depressive disorder, recurrent, unspecified; Z88.8 Allergy status to other drugs, medicaments and biological substances; Z86.39 Personal history of other endocrine, nutritional and metabolic disease
CPT/HCPCS: 71045; 80048; 80076; 82550; 82553; 83880; 84439; 84443; 85025; 85379; 85610; 85652; 85730; 86140; 87040; 87070; 87205; 93005; 96374; 96375; 99284; J1100; J1885

== ENCOUNTER 2018-10-17 11:50 | Emergency (ER) | payer MEDICAID, OTHER, SELFPAY ==
[~2018-10-17] VITALS: Ht 157.5 cm; Wt 51.4 kg
[~2018-10-17 11:50] MED LIST changes: +AUGM875T28 PO; +FLUC150T PO; -OMEP20CA3 PO; +OMEP20CA4 PO
--- NOTE | 2018-10-17 14:14 | REP ---
LEFT RIB SERIES: Four views. HISTORY: Trauma. Comparison radiograph is from May 29, 2018. FINDINGS: Four views of the left rib cage are presented. These demonstrate no evidence of rib fracture or bony destructive lesion. Visualized lung cedeno are clear. IMPRESSION: Negative left rib series. Electronically Signed by Ander Do MD 10/17/2018 02:17 P
--- NOTE | 2018-10-17 14:22 | REP ---
LUMBAR SPINE SERIES: Five views. HISTORY: Trauma. COMPARISON STUDY: June 13, 2017. FINDINGS: There is a mild levoconvex curvature on the AP view. Lumbar vertebral body heights are preserved. No fracture or collapse is seen. There is mild disc space narrowing and spurring at L3-4 and to a lesser extent L2-3. There is osteoarthritic facet hypertrophy and sclerosis bilaterally at 3-4, 4-5 and 5-1. Sacrum and SI joints are intact. Psoas margins are symmetric. The visualized bowel gas pattern is unremarkable. IMPRESSION: Degenerative spondylosis changes. No traumatic abnormality is appreciated. Mild levoconvex curvature. Electronically Signed by Ander Do MD 10/17/2018 03:22 P
[2018-10-17] MEDS ORDERED: ARNU1INH (14:33)
[2018-10-17] MEDS ORDERED: PERCOCET 5MG/325MG TAB PO ONE (14:45)
--- NOTE | 2018-10-17 15:55 | REP ---
HISTORY: Trauma. Assess for possible pneumothorax. COMPARISON: A portable of 05/29/2018. Subtle opacities have developed on this limited frontal view in the left lower lobe with subtle left CP angle blunting. The lung cedneo are otherwise clear and the heart is not enlarged. There is no evidence of a pneumothorax. IMPRESSION: Subtle left basilar opacities of uncertain etiology, possible subsegmental atelectatic change, however, correlate clinically with appropriate followup. Electronically Signed by Fili Story DO 10/17/2018 04:05 P
[2018-10-17] MEDS ORDERED: KETOROLAC 60 MG/2 ML VIAL (J1885) IM ONE (16:00)
[2018-10-17 16:29] VITALS: BP 104/58
[2018-10-17] MEDS ORDERED: KETO10TAB PO ×2 (16:54→16:58)
== END 2018-10-17 17:08 | disposition home or self-care (01) ==
LOC: M ED 11:50
DX: S20.221A Contusion of right back wall of thorax, initial encounter (principal); S39.012A Strain of muscle, fascia and tendon of lower back, initial encounter; W10.8XXA Fall (on) (from) other stairs and steps, initial encounter; Y92.018 Other place in single-family (private) house as the place of occurrence of the external cause; Z79.899 Other long term (current) drug therapy; Z88.8 Allergy status to other drugs, medicaments and biological substances
CPT/HCPCS: 71045; 71100; 72110; 96372; 99283; J1885

== ENCOUNTER → 2018-12-10 | Outpatient (REF) | payer OTHER ==
[~2018-12-10] MED LIST changes: +ARNU1INH; +KETO10TAB PO
[2018-12-10 17:29] LABS: ALBUMIN 4.1 GM/DL (3.2-5.2); ALT/SGPT 21 U/L (12-78); BILIRUBIN,TOTAL 0.4 MG/DL (0.2-1.0); BLOOD UREA NITROGEN 17 MG/DL (7-18); CALCIUM LEVEL 9.7 MG/DL (8.5-10.1); CARBON DIOXIDE LEVEL 31 MEQ/L (21-32); CHLORIDE LEVEL 104 MEQ/L (98-107); CHOLESTEROL LEVEL 186 MG/DL (<200); CHOLESTEROL RISK RATIO 2.043 (<5); CREATININE FOR GFR 0.71 MG/DL (0.55-1.30); FOLATE 8.9 NG/ML (>5.4); FREE T4 0.93 NG/DL (0.76-1.46); GLOMERULAR FILTRATION RATE > 60.0 (>51); GLUCOSE, FASTING 79 MG/DL (70-100); HDL CHOLESTEROL 91 MG/DL (>40); LDL CHOLESTEROL 79 MG/DL (<100); NON-HDL-C 95 MG/DL; POTASSIUM SERUM 4.7 MEQ/L (3.5-5.1); SODIUM LEVEL 140 MEQ/L (136-145); TOTAL PROTEIN 7.2 GM/DL (6.4-8.2); TRIGLYCERIDES LEVEL 80 MG/DL (<150); VITAMIN B12 LEVEL 1022 PG/ML (247-911)
[2018-12-10 17:34] LABS: HEMATOCRIT 44.8 % (36.0-47.0); HEMOGLOBIN 14.7 g/dl (12.0-15.5); MEAN CORPUSCULAR HEMOGLOBIN 32.9 pg (27.0-33.0); MEAN CORPUSCULAR HGB CONC 32.8 g/dl (32.0-36.5); MEAN CORPUSCULAR VOLUME 100.2 fl (80.0-96.0); PLATELET COUNT, AUTOMATED 304 10^3/uL (150-450); RED BLOOD COUNT 4.47 10^6/uL (4.00-5.40); WHITE BLOOD COUNT 7.2 10^3/uL (4.0-10.0)
== END ==
LOC: M SFHCADAM 12:11
PROVIDERS: ATTEND Family Medicine
DX: R20.2 Paresthesia of skin (principal); E03.9 Hypothyroidism, unspecified; H10.9 Unspecified conjunctivitis

== ENCOUNTER → 2019-02-04 | Outpatient (CLI) | payer OTHER ==
[~2019-02-04] MED LIST changes: +OMEP-172 PO; -OMEP20CA4 PO
--- NOTE | 2019-02-19 03:30 | ECWPNPC ---
PATIENT NAME: EVERETT BUSTILLO : 1965 GENDER: FEMALE VISIT DATE: 02/04/2019 DISCHARGE DATE: 02/04/19 0000 VISIT LOCKED DATE TIME: PHYSICIAN: TRUE ARREDONDO PHYSICIAN PAGER NO: [phone] RESOURCE: TRUE ARREDONDO REASON FOR APPOINTMENT 1. CERVICAL HISTORY OF PRESENT ILLNESS PAIN SCREENIN53 Y/O FEMALE REFERRED BY DR RAMSEY FOR EVALUATION OF CHRONIC GENERALIZED BODY PAIN.WAS BEING FOLLOWED AT OUR CLINIC BY ARMAND HOLLOWAY FOR SEVERAL YEARS AND STOPPED COMING ABRUPTLY SHE FELT IT WASNT EFFECIENT OR EFFECTIVE.FRUSTRATED WITH SCHEDULING OF THIS APPOINTMENT.WHEN DISCUSSING NEED FOR UPDATED MRI OF L/S SPINE AND NECK AND NEED TO ATTEND PT IN ORDER TO GET MRI IMAGING WE WOULD NEED PER HER INSURANCE COVERAGE PATIENT BECAME VERY AGITATED.SHE HAS HX OF FALLING ON BACK GOING DOWN STAIRS IN AUGUST.HAD LUMBAR XRAY AT [facility] SHE WAS ON NSAIDS FOR KNEE PAIN THAT WERE INEFFECTIVE.SHE IS VOICING FRUSTRATION AND IS VERBALLY DEGRADING ALL MEDICAL INSTITUTIONS IN THIS AREA.DUE TO PATIENTS FRUSTRATION I REVIEWED CASE WITH [employer] WHO CAME IN TO TALK WITH PATIENT. PATIENT HAS A COMPLAINT OF ACUTE OR CHRONIC PAIN :YES FALL RISK SCREENING: SCREENING :NO FALLS REPORTED IN THE LAST YEAR CURRENT MEDICATIONS TAKING VALTREX 500MG TABLET 1 TAB PLANNED PARENTHOOD ORALLY BID TAKING FEMRING 0.05 MG/24HR RING VAGINAL TAKING LEVOTHYROXINE SODIUM 88 MCG TABLET 1 TABLET ORALLY ONCE A DAY TAKING MULTIVITAMINS OTC TABLET 1 TABLET ORALLY ONCE A DAY TAKING BIOTIN 1000 MCG TABLET 1 TABLET ORALLY ONCE A DAY TAKING FLUCONAZOLE 150 MG TABLET ORAL TAKING PLAQUENIL 200 MG TABLET 1 TABLET WITH FOOD OR MILK ORALLY ONCE A DAY, NOTES: ARTHRITIS TAKING VENTOLIN HFA 108 (90 BASE) MCG/ACT AEROSOL SOLUTION 2 PUFFS NEEDED INHALATION EVERY 6 HRS TAKING CETIRIZINE HCL 10 MG TABLET 1 TABLET ORALLY ONCE A DAY TAKING FLONASE 50 MCG/ACT SUSPENSION 1 PUFF IN EACH NOSTRIL NASALLY ONCE A DAY NEEDED TAKING VALACYCLOVIR HCL 500 MG TABLET TAKE ONE TABLET BY MOUTH TWICE A DAY TAKING ARNUITY ELLIPTA 100 MCG/ACT AEROSOL POWDER BREATH ACTIVATED INHALE ONE PUFF BY MOUTH EVERY DAY AT THE SAME TIME INHALATION TAKING ZOFRAN ODT 4 MG TABLET DISPERSIBLE 1 TABLET ON THE TONGUE AND ALLOW TO DISSOLVE ORALLY EVERY 8 HRS PRN NAUSEA TAKING OMEPRAZOLE 20MG 20MG TABLET 1 TAB BEFORE MEAL ORAL ONCE A DAY TAKING PENLAC 8% SOLUTION 1 DROP TO AFFECTED TOE NAILS DAILY, CLEAN OFF WITH ALCOHOL EVERY 7 DAYS EXTERNALLY ONCE A DAY NOT-TAKING NAPROXEN 500 MG TABLET 1 TAB ORALLY TWICE DAILY NEEDED FOR PAIN NOT-TAKING BLEPH-10 10 % SOLUTION 2 DROP INTO AFFECTED EYE OPHTHALMIC FOUR TIMES DAILY NOT-TAKING PERCOCET 5-325 MG TABLET 1 TABLET ORALLY ONCE PER DAY MDD=1 FOR PAIN NEEDED NOT-TAKING AMOXICILLIN-POT CLAVULANATE 875-125 MG TABLET ORAL DISCONTINUED SYMBICORT 80-4.5 MCG/ACT AEROSOL 2 PUFFS INHALATION TWICE A DAY MEDICATION LIST REVIEWED AND RECONCILED WITH THE PATIENT PAST MEDICAL HISTORY HYPERACTIVE THYROID TX'D W RADIOACTIVE IODINE; POST GRAVES DISEASE ESOPHAGEAL REFLUX HS 2 DEPRESSION/ANXIETY SUBSTANCE ABUSE BARTHOLIN'S GLAND CYST SKIN CA NOSE--? [facility] ECHO 07/16: NORMAL (EF75%, NO ABNL) HOLTER 09/15: NORMAL, WAS IN NSR DURING SYMPTOMS ABPM 10/16:MEAN SBP 130S +RF 06/17, MILD RA SX (SEE 06/17 NOTE) DERMOID CYST RT PELVIS CT 2016 SJOGREN'S ALLERGIC RHINITIS - WEEKLY ALLERGY SHOTS DEXA DONE AT [facility] 07/19, FRAX: MAJOR OSTEOPOROTIC 3.9 AND HIP FRACTURE 0.3 ALLERGIES DEMEROL: NAUSEA/VOMITING - ALLERGY REGLAN: EKG ABNORMALITIES - ALLERGY PREMPRO: PALPITATIONS - SIDE EFFECTS PLAQUENIL: PALPITATIONS - SIDE EFFECTS SURGICAL HISTORY TONSILLECTOMY COLPOSCOPY LEEP -(PLANNED PARENTHOOD) 08/08 HYSTERECTOMY 04/09/16 COLONSCOPY REINDL 2017 FAMILY HISTORY FATHER: ALIVE 69 YRS MOTHER: ALIVE 70 YRS 1 BROTHER(S) . SOCIAL HISTORY GENERAL: TOBACCO USE ARE YOU A:NONSMOKER HIV / HEP-C SCREENING HIV TEST OFFERED TO PATIENT:YES DATE OFFERED:03/28/2017 TEST ACCEPTED:NO HEP-C TEST OFFERED TO PATIENT:YES DATE OFFERED:03/28/2017 REASON:PATIENT DECLINED TEST ACCEPTED:NO REASON:PATIENT DECLINED HOUSING: RENTS APARTMENT. EDUCATION LEVEL OF EDUCATION:NOT FINISHED COLLEGE LANGUAGE LANGUAGES SPOKEN:[place]TH [place]ORE[place] DOMESTIC VIOLENCE DO YOU FEEL SAFE IN YOUR ENVIRONMENT?YES RECREATIONAL DRUG USE DRUG USE?YES MARIJUANA EXERCISE: NO REGULAR EXERCISE. LEARNING BARRIERS / SPECIAL NEEDS CHANGE FROM LAST VISIT?NO BARRIERS TO LEARNING?NO HEARING IMPAIRED?NO VISION IMPAIRED?YES GLASSES FOR READING COGNITIVELY IMPAIRED?NO READINESS TO LEARN?YES LEARNING PREFERENCES?NO LEARNING CAPABILITIES PRESENT?YES EMOTIONAL BARRIERS?NO SPECIAL DEVICES?NO LEAN SIX SIGMA BLACK BELT NEEDED?NO PAIN CLINIC PFS, CLERGY, PUBLIC HEALTH REFERRALS PFS REFERRAL NEEDED?NO CLERGY REFERRAL NEEDED?NO PUBLIC HEALTH REFERRAL NEEDED?NO WAS THE PROVIDER NOTIFIED OF ANY PERTINENT INFO?NO HAS THE PATIENT BEEN EDUCATED REGARDING HIS/HER PLAN OF CARE?YES HAS THE PATIENT BEEN EDUCATED REGARDING PAIN, THE RISK FOR PAIN, THE IMPORTANCE OF EFFECTIVE PAIN MANAGEMENT, AND THE PAIN ASSESSMENT PROCESS?YES LATEX QUESTIONNAIRE LATEX ALLERGY : HAVE YOU EVER DEVELOPED ANY TYPE OF REACTION AFTER HANDLING LATEX PRODUCTS SUCH RUBBER GLOVES, CONDOMS, DIAPHRAGMS, BALLOONS, SOCKS, OR UNDERWEAR?NO LATEX ALLERGY : HAVE YOU EVER DEVELOPED ANY TYPE OF REACTION DURING OR AFTER DENTAL APPOINTMENT, VAGINAL/RECTAL EXAMINATION, SURGICAL PROCEDURE, OR ANY OTHER EXPOSURE?NO DATE ASKED : 06/05/2018 LATEX RISK : HAVE YOU EVER HAD ANY DIFFICULTY BREATHING OR HIVES AFTER EATING OR HANDLING ANY FRUITS, OR VEGETABLES; SUCH KIWI, BANANAS, STONE FRUITS, OR CHESTNUTSNO LATEX RISK : DO YOU HAVE A PREVIOUS PERSONAL HISTORY OF MORE THAN NINE SURGERIES, SPINA BIFIDA, OR REPEATED CATHERIZATIONS? NO LATEX RISK : ARE YOU FREQUENTLY EXPOSED TO LATEX PRODUCTS IN YOUR OCCUPATION?NO CAFFEINE CAFFEINE USE?NO ADVANCE DIRECTIVE ADVANCE DIRECTIVE DISCUSSED WITH PATIENT:YES PT DECLINES INFO AT THIS TIME [facility] [id number] JEW MARITAL STATUS: .. ALCOHOL SCREENING DID YOU HAVE A DRINK CONTAINING ALCOHOL IN THE PAST YEAR?YES HOW OFTEN DID YOU HAVE SIX OR MORE DRINKS ON ONE OCCASION IN THE PAST YEAR?LESS THAN MONTHLY (1 POINT) HOW MANY DRINKS DID YOU HAVE ON A TYPICAL DAY WHEN YOU WERE DRINKING IN THE PAST YEAR?1 OR 2 (0 POINTS) HOW OFTEN DID YOU HAVE A DRINK CONTAINING ALCOHOL IN THE PAST YEAR?TWO TO THREE TIMES PER WEEK (3 POINTS) POINTS4 INTERPRETATIONPOSITIVE SEXUAL HX HAD SEX IN THE LAST 12 MONTHS (VAGINAL, ORAL, OR ANAL)?NO LMP:HYSTER HAVE YOU EVER HAD AN STD?YES OTHER?NO HERPES?YES SYPHILIS?NO GC?NO CHLAMYDIA?NO REVIEWED, NO CHANGESREVIEWED 12/16/17 1500 BVREVIEWED WITH PATIENT 12/30/17 1119 JS. HOSPITALIZATION/MAJOR DIAGNOSTIC PROCEDURE SURGERY RELATED OVERACTIVE THYROID REVIEW OF SYSTEMS REVIEWED BY: PROVIDER: TRUE HOLLOWAY . CONSTITUTIONAL: ANY CHANGE IN YOUR MEDICAL CONDITION? NO . CHILLS NO . FEVER NO . INFECTION: DO YOU HAVE NEW INFECTIONS? NO . DO YOU HAVE HISTORY OF MRSA? NO . MUSCULOSKELETAL: ANY NEW PATTERNS OF PAIN OR NUMBNESS? NO . SYTEMIC LUPUS NO . GASTROENTEROLOGY: ANY NEW CHANGE IN BOWEL CONTROL? NO . BARRETTS ESOPHAGUS NO . CIRRHOSIS NO . HEPATITIS NO . LIVER FAILURE NO . ACID REFLUX NO . UNEXPLAINED WEIGHT LOSS NO . GENITOURINARY: ANY NEW CHANGE IN BLADDER CONTROL? NO . IS THERE A CHANCE YOU COULD BE ? NO . HEMATOLOGY/LYMPH: DO YOU TAKE ANY BLOOD THINNERS? (FOR EXAMPLE- COUMADIN, PLAVIX, AGGRENOX, PLATEL, PRADAXA, OR XARELTO) NO . WHEN WAS YOUR LAST DOSE? DATE: TIME: . LOW PLATELET COUNT NO . SICKLE CELL DISEASE NO . VON WILLIEBRANDS NO . FACTOR V LEIDEN NO . THALLASEMIA NO . ANEMIA NO . EASY BRUISING NO . NEUROLOGY: HAVE YOU FALLEN IN THE PAST 12 MONTHS? YES, FELL 08/2018 TRIPPED ON THROW RUG . ANY NEW EXTREMITY NUMBNESS OR WEAKNESS? YES, BILAT ARM PAIN AND WEAKNESS . HEAD INJURY NO . DEMENTIA NO . CEREBRAL PALSY NO . MULTIPLE SCLEROSIS NO . DIZZINESS NO . HEADACHE NO . STROKES NO . VERTIGO NO . CARDIOLOGY: DO YOU HAVE A PACEMAKER OR DEFIBRILLATOR? NO . ANGINA NO . HEART ATTACK NO . HEART SURGERY NO . CONGESTIVE HEART FAILURE/FLUID OVERLOAD NO . CHEST PAIN NO . HIGH BLOOD PRESSURE NO . IRREGULAR HEART BEAT NO . RESPIRATORY: HAVE YOU BEEN SICK IN THE PAST WEEK? NO . FEVER NO . FLU LIKE SYMPTOMS? NO . CPAP NO . BYPAP NO . ASTHMA NO . EMPHYSEMA NO . CHRONIC LUNG DISEASES NO . SHORTNESS OF BREATH ON EXERTION NO . COUGH NO . SNORING NO . INTEGUMENTARY: DO YOU HAVE ANY RASHES OR OPEN SORES? NO . ALLERGIC/IMMUNO: ARE YOU ALLERGIC TO IV DYE? NO . ANY NEW ALLERGIES? NO . PSYCHIATRIC: DO YOU HAVE THOUGHTS OF HURTING YOURSELF OR SOMEONE ELSE? NO . ARE YOU ABUSED, NEGLECTED, OR IN AN UNSAFE ENVIRONMENT? NO . ENDOCRINOLOGY: ARE YOU DIABETIC? NO . THYROID DISORDER YES, ON MEDS . OTHER: DO YOU NEED ANY PRESCRIPTIONS? YES, PERCOSET . IF YES, PLEASE LIST: ____ . ANY NEW PROBLEMS WITH YOUR MEDICATIONS? NO . WHEN DID YOU LAST EAT? ____ . WHEN DID YOU LAST DRINK? ____ . WHAT DID YOU LAST DRINK? ____ . NAME OF PERSON DRIVING YOU HOME? ____ . DO YOU HAVE ANY OTHER QUESTIONS OR CONCERNS YES, NERVE DAMAGE C5-C6 CARPAL TUNNEL BOTH ARMS . VITAL SIGNS WT 119 LBS, HT 63 IN, BMI 21.08 INDEX, BP 127/74 MM HG, HR 84 /MIN, RR 18 /MIN, TEMP 97.2 F, OXYGEN SAT % 100%, NA INITIALS SC 13:11, REVIEWED BY: EM. EXAMINATION GENERAL EXAMINATION: DEFERRED DUE TO PATIENTS FRUSTRATION AND DESIRE TO LEAVE. ASSESSMENTS ACUTE PAIN DUE TO TRAUMA - G89.11 (PRIMARY) LOW BACK PAIN - M54.5 TREATMENT ACUTE PAIN DUE TO TRAUMA NOTES: DUE TO THE FACT THAT PATIENT HAS NOT HAD PT FOR PERSISTENT LUMBAR PAIN POST INJURY IT WOULD BE MY RECOMMENDATION TO ATTEND PT.PATIENT IS REFUSING PT.WALKED OUT OF CLINIC VERBALIZING PROFANITIES. PROCEDURE CODES FA211 ESTABILISHED PATIENT [facility] CHARGE DISPOSITION & COMMUNICATION ELECTRONICALLY SIGNED BY TRUE HOLLOWAY, AMIE ON 02/18/2019 AT 03:38 PM EST DISCLAIMER : THIS IS A VISIT SUMMARY EXTRACTED FROM THE [facility] CH[facility]. IT IS NOT A COPY OF THE [employer] [facility] PROGRESS NOTE. JOSE
== END ==
LOC: M PAIN 13:00
PROVIDERS: ATTEND Nurse Practitioner Family
DX: G89.11 Acute pain due to trauma (principal); M54.5 Low back pain; G89.29 Other chronic pain; K21.9 Gastro-esophageal reflux disease without esophagitis; Z86.59 Personal history of other mental and behavioral disorders; Z88.5 Allergy status to narcotic agent; Z88.8 Allergy status to other drugs, medicaments and biological substances; Z79.51 Long term (current) use of inhaled steroids; Z79.899 Other long term (current) drug therapy

== ENCOUNTER → 2019-02-11 | Outpatient (REF) | payer OTHER ==
[2019-02-11 18:15] LABS: FREE T4 1.17 NG/DL (0.76-1.46); THYROID STIMULATING HORMONE 0.762 uIU/ML (0.358-3.740)
== END ==
LOC: M LABDRAW1 14:24
PROVIDERS: ATTEND Nurse Practitioner Family
DX: E89.0 Postprocedural hypothyroidism (principal)

== ENCOUNTER → 2019-03-25 | Outpatient (CLI) | payer MEDICAID, OTHER ==
[~2019-03-25] MED LIST changes: -OMEP-172 PO; +OMEP1CAP73 PO
--- NOTE | 2019-03-25 16:41 | REPMRS ---
Patient History The patient states she had a clinical breast exam in 01/2019. Patient is postmenopausal, has history of other cancer at age 31, and is nulliparous. Family history of breast cancer in maternal grandmother, endometrial cancer in maternal aunt. Took hormonal contraceptives for 23 years. Took estrogen for 1 year 6 months. Digital Woman Screen Mammo: March 25, 2019 - Exam #: [id number] Bilateral CC and MLO view(s) were taken. Technologist: Elaine Wyman, Technologist Prior study comparison: December 31, 2017, bilateral digital woman screen mammo performed at [facility]. October 25, 2016, digital woman screen mammo performed at [facility]. September 26, 2015, digital woman screen mammo performed at [facility]. FINDINGS: The breast tissue is heterogeneously dense. This may lower the sensitivity of mammography. There is a moderate amount of heterogeneously dense fibroglandular tissue which is fairly symmetric. There is no interval development of dominant mass, architectural distortion, or grouped microcalcification typical of malignancy. There has been no change in the appearance of the mammogram from the prior studies. 3-D tomosynthesis shows no additional findings. Assessment: BI-RADS/ACR category 1 mammogram. Negative Mammogram. Recommendation Routine screening mammogram of both breasts in 1 year (for women over age 40). This patient's Lifetime Breast Cancer RIsk is estimated at 16.3 %. This mammogram was interpreted with the aid of an FDA-approved computer-aided dectection system. Electronically Signed By: Dillon Do MD 03/25/19 1640
== END ==
LOC: M WHC 11:17
PROVIDERS: ATTEND Nurse Practitioner Family
DX: Z12.31 Encounter for screening mammogram for malignant neoplasm of breast (principal); Z78.0 Asymptomatic menopausal state; Z85.9 Personal history of malignant neoplasm, unspecified; Z80.3 Family history of malignant neoplasm of breast

== ENCOUNTER → 2019-03-26 | Outpatient (CLI) | payer OTHER ==
--- NOTE | 2019-03-27 02:52 | REP ---
Clinical: Pain. Technique: Axial and lateral views of the right calcaneus. Findings: No acute fracture dislocation. Osseous structures and joint spaces appear intact and relatively age-appropriate. Surrounding soft tissues are grossly unremarkable. Impression: Age-appropriate examination. Electronically Signed by Tom Ritter MD 03/27/2019 02:45 A
== END ==
LOC: M ADAMS 15:51
PROVIDERS: ATTEND Physician Assistant
DX: M79.671 Pain in right foot (principal)

== ENCOUNTER → 2019-04-03 | Outpatient (CLI) | payer OTHER ==
--- NOTE | 2019-04-03 15:31 | REP ---
Left hip two views : There is no fracture or dislocation. Mineralization and joint spaces are normal. There are no calcifications or foreign bodies. Impression: Negative Left hip. If symptoms persist or worsen, consider MRI. . Electronically Signed by Julian Hubbard MD 04/03/2019 03:23 P
== END ==
LOC: M ADAMS 14:57
PROVIDERS: ATTEND Family Medicine
DX: M25.552 Pain in left hip (principal)

== ENCOUNTER → 2019-04-22 | Outpatient (REF) | payer OTHER ==
[2019-04-22 18:59] LABS: INFLUENZA A AMPLIFICATION NEGATIVE (NEGATIVE); INFLUENZA B AMPLIFICATION NEGATIVE (NEGATIVE)
== END ==
LOC: M LAB REF 17:59
PROVIDERS: ATTEND Physician Assistant
DX: J11.1 Influenza due to unidentified influenza virus with other respiratory manifestations (principal)

== ENCOUNTER → 2019-04-25 | Outpatient (CLI) | payer OTHER ==
--- NOTE | 2019-04-25 11:41 | REPVR ---
PROCEDURE INFORMATION: Exam: MR Cervical Spine Without Contrast Exam date and time: 04/25/2019 10:42 AM Age: 53 years old Clinical indication: Pain; Cervicalgia; Additional info: Other cervical disc degeneration, unsp cervical region TECHNIQUE: Imaging protocol: Multiplanar magnetic resonance images of the cervical spine without contrast. COMPARISON: No relevant prior studies available. FINDINGS: Limitations: This examination is slightly suboptimal secondary to motion artifact. Vertebrae: Small hemangioma within the C7 vertebral body. No fracture. Degenerative disc disease and facet arthrosis is present throughout the cervical spine. Spinal cord: Normal signal. No cord compression. C2-C3: No significant disc disease. No significant spinal stenosis. C3-C4: Mild left uncovertebral joint hypertrophy resulting in minimal narrowing of the left neural foramen. No disc protrusion or cord impingement. C4-C5: Mild posterior disco-osteophytic ridging and bilateral uncovertebral joint hypertrophy. No focal disc protrusion, cord impingement or severe spinal stenosis. Mild effacement of the anterior thecal sac. Mild bilateral neural foraminal narrowing. C5-C6: Posterior disco-osteophytic protrusion, asymmetric to the right. Bone marrow edema signal within the inferior endplate of C5 and superior endplate of C6. Mild spinal stenosis. Bilateral uncovertebral joint hypertrophy. Moderate narrowing of the right neural foramen. Mild narrowing of the left neural foramen. C6-C7: No significant disc disease. No significant spinal stenosis. C7-T1: No significant disc disease. No significant spinal stenosis. Vertebral arteries: Expected flow voids in the vertebral arteries. Soft tissues: Unremarkable. IMPRESSION: Degenerative spondylosis of the cervical spine, most severe at C5-C6. Electronically signed by: Sarkis Johnson On 04/25/2019 11:41:35 AM
--- NOTE | 2019-04-25 11:47 | REPVR ---
PROCEDURE INFORMATION: Exam: MR Lumbar Spine Without Contrast. Exam date and time: 04/25/2019 9:19 AM Age: 53 years old Clinical indication: Low back pain; Additional info: Lbp TECHNIQUE: Imaging protocol: Multiplanar magnetic resonance images of the lumbar spine without intravenous contrast. COMPARISON: CR Spine. Lumbosacral, complete 10/17/2018 12:20 PM FINDINGS: Vertebrae: Unremarkable. No fracture. Spinal cord: Normal signal. No cord compression. L1-L2: No significant disc disease. No significant spinal canal stenosis. No neural foraminal stenosis. L2-L3: Normal disc. Mild bilateral facet hypertrophy. No spinal stenosis or nerve root impingement. L3-L4: Mild disc space height loss. Minimal posterior broad-based disc bulge. Bilateral facet hypertrophy. Mild bone marrow edema signal within the superior and inferior articulating facets bilaterally consistent with degenerative facet arthrosis. Grade 1 anterolisthesis of L3. No focal disc protrusion, nerve root impingement or spinal stenosis. L4-L5: Right foraminal focal disc bulge without definite evidence of nerve root impingement. Mild posterior broad-based disc bulge. Moderate bilateral facet hypertrophy and ligamentum flavum thickening. No spinal stenosis. L5-S1: No significant disc disease. No significant spinal canal stenosis. No neural foraminal stenosis. Soft tissues: Unremarkable. IMPRESSION: Lumbar degenerative disc disease and facet arthrosis with grade 1 anterolisthesis of L3. Electronically signed by: Sarkis Johnson On 04/25/2019 11:47:24 AM
== END ==
LOC: M RAD 09:08
PROVIDERS: ATTEND Orthopaedic Surgery
DX: M50.30 Other cervical disc degeneration, unspecified cervical region (principal); M47.812 Spondylosis without myelopathy or radiculopathy, cervical region; D18.09 Hemangioma of other sites

== ENCOUNTER → 2019-06-21 | Outpatient (CLI) | payer OTHER ==
[2019-06-21 17:20] LABS: FREE T4 1.07 NG/DL (0.76-1.46); THYROID STIMULATING HORMONE 0.931 uIU/ML (0.358-3.740)
== END ==
LOC: M ADAMS 14:49
PROVIDERS: ATTEND Nurse Practitioner Family
DX: E89.0 Postprocedural hypothyroidism (principal)

== ENCOUNTER 2019-08-01 22:19 | Emergency (ER) | payer OTHER ==
[~2019-08-01] VITALS: Ht 157.5 cm; Wt 52.4 kg
[2019-08-01] MEDS ORDERED: ONDANSETRON 4MG/2ML VIAL As Ordered ONE (22:36)
[2019-08-01] MEDS ORDERED: MORPHINE 4 MG/ML 1ML VIAL/SYRINGE (J2270) IV ONE (22:45)
[2019-08-01] MEDS ORDERED: ONDANSETRON 4MG/2ML VIAL IV ONE (23:00)
[2019-08-01] MEDS ORDERED: LIDOCAINE 1% MDV 20ML VIAL As Ordered ONE (23:13)
[2019-08-01] MEDS ORDERED: NS 1,000 ML IV ONE (23:15)
[2019-08-01] MEDS ORDERED: propofoL 200 MG/20 ML VIAL As Ordered ONE (23:20)
[2019-08-02] MEDS ORDERED: propofoL 200 MG/20 ML VIAL IV ONE
[2019-08-02] MEDS ORDERED: IBUP-1022 PO (00:17)
[2019-08-02] MEDS ORDERED: HYDR-3713 PO (00:19)
[2019-08-02 00:41] VITALS: BP 125/82
--- NOTE | 2019-08-02 09:56 | REP ---
RIGHT ELBOW, THREE VIEWS: There is no evidence of an acute fracture, dislocation or intrinsic bone disease. A splint overlies the radius and ulna limiting evaluation. IMPRESSION: No fracture or dislocation. Electronically Signed by Julian Marte MD 08/02/2019 10:27 A
--- NOTE | 2019-08-02 10:03 | REP ---
RIGHT WRIST, FOUR VIEWS: Four views, right wrist performed. Overlying splint obscures underlying osseous detail. There is a comminuted intra-articular fracture of the distal radius, which is impacted and demonstrates dorsal angulation and displacement. No other fracture or dislocation is seen. Electronically Signed by Julian Marte MD 08/02/2019 10:27 A
--- NOTE | 2019-08-02 10:08 | REP ---
C-ARM VIEWS, RIGHT WRIST: Three C-arm views right wrist performed. There is reduction of the comminuted fracture of the distal radius, which is now well aligned. There is an overlying splint. Fluoroscopy time: 6.4 seconds. Electronically Signed by Julian Marte MD 08/02/2019 10:27 A
--- NOTE | 2019-08-03 11:13 | ER ---
DATE OF CONSULTATION: 08/01/2019 CHIEF COMPLAINT: Right distal radius fracture. HISTORY OF PRESENT ILLNESS: This 53-year-old, [id number] female was seen today for an injury that she sustained at 9:45 p.m. tonight just about 2 hours ago. She was rollerblading and fell on her outstretched hand. She tripped and fell with no other injuries. No chest pain, shortness of breath or other injuries. No prior history of pain or problems with the wrist. She was drinking alcohol about 5 beers over 9 hours, she states. PAST MEDICAL HISTORY: Includes Graves' disease. MEDICATIONS: - She takes levothyroxine 0.88. ALLERGIES: To DEMOREL and REGLAN. SURGICAL HISTORY: She has had a hysterectomy, tonsillectomy. SOCIAL HISTORY: She smokes one marijuana cigarette a day. No tobacco use. She works for [employer]. She uses alcohol. PHYSICAL EXAMINATION: This is a 53-year-old female. She appears mildly intoxicated but she responds appropriately. She has obvious dinner-fork deformity the right upper extremity. There is closed injury, no abrasions. Normal sensation. Motor and sensation function throughout the hand is normal in MRU and AIN/PIN. Hand is warm and well perfused. Strong radial pulse. No pain at the elbow. Radiographs reviewed of the right wrist, AP, lateral, two obliques. This shows what appears be a transverse metaphyseal fracture of the right distal radius. There is dorsal displacement and angulation. Repeat radiographs were taken after closed reduction and casting. This shows the cast to be appropriately placed and molded. There is near anatomic reduction of the fracture in AP, lateral and true lateral joint view of 30 degrees flexion. ASSESSMENT/PLAN: This 53-year-old female has a right extra-articular distal radius fracture. We talked about pros and cons, risks and benefits of going ahead with closed reduction and casting. We performed that for her today and followup in the office a weeks' time for repeat radiographs in the cast. PROCEDURE NOTE: We talked about the pros and cons, risks and benefits of going ahead with conscious sedation as well as right distal radius closed reduction and casting. The risks include, but are not limited to damage to surrounding structures, traction injury, neurovascular injury, cast coulter, pain, discomfort, and other risks. Risks of conscious sedation was explained to her by the emergency department physician. Conscious sedation was achieved. I performed a closed reduction maneuver with direct traction and recreation of the deformity, followed by direct pressure just distal to the fracture site to reduce the fracture. I took a mini C-arm fluoroscopy. It confirmed appropriate reduction. I placed a well moulded below-elbow plaster of Leticia cast with the wrist in slight extension and three-point molding, one-point palmarly and two-points dorsally distal and proximally to the fracture site. The cast was allowed to fully harden. I placed another layer on and smoothed this out appropriately. The cast was allowed to fully harden with the limb elevated. Post cast application the hand was warm and well perfused. She was able wiggle her fingers with normal sensation. JOSE
== END 2019-08-02 01:19 | disposition home or self-care (01) ==
LOC: M ED 22:19
DX: S52.501A Unspecified fracture of the lower end of right radius, initial encounter for closed fracture (principal); W01.0XXA Fall on same level from slipping, tripping and stumbling without subsequent striking against object, initial encounter; Y92.410 Unspecified street and highway as the place of occurrence of the external cause; E05.00 Thyrotoxicosis with diffuse goiter without thyrotoxic crisis or storm; Z79.899 Other long term (current) drug therapy; Z88.8 Allergy status to other drugs, medicaments and biological substances
CPT/HCPCS: 25605; 73080; 73100; 73110; 94760; 96361; 96374; 96375; 99285; J2270; J2405

== ENCOUNTER → 2019-12-17 | Outpatient (CLI) | payer OTHER ==
[~2019-12-17] MED LIST changes: +HYDR-3713 PO
[2019-12-17 13:13] LABS: FREE T4 0.97 NG/DL (0.76-1.46); THYROID STIMULATING HORMONE 2.21 uIU/ML (0.358-3.740)
== END ==
LOC: M LAB 11:50
PROVIDERS: ATTEND Internal Medicine Endocrinology, Diabetes & Metabolism
DX: E89.0 Postprocedural hypothyroidism (principal)

== ENCOUNTER → 2020-01-08 | Outpatient (CLI) | payer OTHER ==
--- NOTE | 2020-01-08 10:45 | DEXA ---
INDICATION: M85.89 [facility] DISRD OF BONE DENSITY AND STRUCTURE. COMPARISON: 07/22/2017. TECHNIQUE: Bone density was measured using dual-energy x-ray absorptiometry (DEXA). FINDINGS: AP SPINE L1-L4 BMD 1.026 g/cm2 Young Adult T-Score is -1.4 Age Matched Z-Score -0.7. LT FEMUR, TOTAL BMD 0.73 g/cm2 Young Adult T-Score -1.8 Age Matched Z-Score -1.2. LT NECK BMD 0.746 g/cm2 Young Adult T-Score -2.1 Age Matched Z-Score -1.2. RT FEMUR, TOTAL BMD 0.811 g/cm2 Young Adult T-Score -1.6 Age Matched Z-Score -1.0. RT NECK BMD 0.746 g/cm2 Young Adult T-Score -2.1 Age Matched Z-Score -1.2. IMPRESSION: There is low bone density of the spine. There is low bone density of the left hip. There is low bone density of the right hip. The density of the spine has decreased 5.5% since the initial exam on 07/22/2017. The density of the left hip has decreased 6.5% since initial exam on 07/22/2017. The density of the right hip has decreased 6.8% since the initial exam on 07/22/2017. FOLLOW-UP: Recommendation for the next bone density exam: 2 years. <Electronically signed by Julian Marte > 01/08/20 [id number]
== END ==
LOC: M WHC 09:40
PROVIDERS: ATTEND Internal Medicine Endocrinology, Diabetes & Metabolism
DX: M85.9 Disorder of bone density and structure, unspecified (principal)

== ENCOUNTER 2020-01-17 15:27 | Emergency (ER) | payer OTHER ==
[~2020-01-17] VITALS: Ht 160 cm; Wt 53.7 kg
[2020-01-17] MEDS ORDERED: NS 1,000 ML IV ONE (16:45)
[2020-01-17] MEDS ORDERED: PANTOPRAZOLE 40MG VIAL (C9113 PER 1) IV ONE (16:45)
[2020-01-17] MEDS ORDERED: KETOROLAC 30 MG/ML 1ML VIAL IV ONE (17:15)
[2020-01-17] MEDS ORDERED: ONDANSETRON 4MG/2ML VIAL IV ONE (17:15)
[2020-01-17 17:27] LABS: BASO % 0.2 % (0.0-1.0); EOS % 0.2 % (0.0-3.0); HEMOGLOBIN 14.6 g/dl (12.0-15.5); LYMPH # 1.4 10^3/uL (1.5-5.0); LYMPH % 9.7 % (24.0-44.0); MEAN CORPUSCULAR HEMOGLOBIN 31.6 pg (27.0-33.0); MEAN CORPUSCULAR VOLUME 93.1 fl (80.0-96.0); MONO # 0.5 10^3/uL (0.0-0.8); MONO % 3.6 % (0.0-5.0); NEUTROPHILS # 12.3 10^3/uL (1.5-8.5); NEUTROPHILS % 85.9 % (36.0-66.0); PLATELET COUNT, AUTOMATED 346 10^3/uL (150-450); RED BLOOD COUNT 4.62 10^6/uL (4.00-5.40); WHITE BLOOD COUNT 14.3 10^3/uL (4.0-10.0)
[2020-01-17 17:49] LABS: ALBUMIN 4.6 GM/DL (3.2-5.2); ALT/SGPT 22 U/L (12-78); BILIRUBIN,DIRECT 0.2 MG/DL (0.0-0.2); BILIRUBIN,TOTAL 0.7 MG/DL (0.2-1.0); BLOOD UREA NITROGEN 9 MG/DL (7-18); CALCIUM LEVEL 9.9 MG/DL (8.5-10.1); CARBON DIOXIDE LEVEL 27 MEQ/L (21-32); CHLORIDE LEVEL 101 MEQ/L (98-107); CREATININE FOR GFR 0.74 MG/DL (0.55-1.30); GLOMERULAR FILTRATION RATE > 60.0 (>51); GLUCOSE, FASTING 104 MG/DL (70-100); LIPASE 114 U/L (73-393); POTASSIUM SERUM 3.3 MEQ/L (3.5-5.1); SODIUM LEVEL 139 MEQ/L (136-145); TOTAL PROTEIN 7.8 GM/DL (6.4-8.2)
--- NOTE | 2020-01-17 18:04 | REPVR ---
PROCEDURE INFORMATION: Exam: US Abdomen, Limited; Right Upper Quadrant Exam date and time: 01/17/2020 5:26 PM Age: 54 years old Clinical indication: Abdominal pain; Flank; Right upper quadrant (ruq); Additional info: Ruq pain/vomiting, nausea TECHNIQUE: Imaging protocol: US abdomen. Real time ultrasound with image documentation. Limited exam focused on the right upper quadrant. COMPARISON: CT ABD PELVIS WITH CONTRAST 09/06/2015 11:24 AM FINDINGS: Liver: Diffuse hepatic steatosis. No focal hepatic lesion or intrahepatic duct dilatation. Gallbladder: 6 mm stone in the gallbladder. No gallbladder wall thickening or pericholecystic fluid. Common bile duct: Normal caliber common bile duct with a diameter of 6.2 mm. Pancreas: Visualized pancreas is unremarkable. Right kidney: Normal. No mass. No hydronephrosis. IMPRESSION: 1. Cholelithiasis. 2. Diffuse hepatic steatosis. Electronically signed by: Sarkis Johnson On 01/17/2020 18:04:27 PM
[2020-01-17] MEDS ORDERED: PROMETHAZINE INJ 25 MG/ML VIAL (J2550) IV ONE (18:30)
[2020-01-17] MEDS ORDERED: PANT-23 PO ×2 (19:04→20:08)
[2020-01-17] MEDS ORDERED: ONDA4TAB6 PO ×2 (19:04→20:08)
[2020-01-17 19:29] VITALS: BP 162/85
== END 2020-01-17 20:00 | disposition home or self-care (01) ==
LOC: M ED 15:27
DX: K21.9 Gastro-esophageal reflux disease without esophagitis (principal); K80.50 Calculus of bile duct without cholangitis or cholecystitis without obstruction; F12.10 Cannabis abuse, uncomplicated; Z79.1 Long term (current) use of non-steroidal anti-inflammatories (NSAID); Z79.891 Long term (current) use of opiate analgesic; Z79.899 Other long term (current) drug therapy; Z88.5 Allergy status to narcotic agent; Z88.8 Allergy status to other drugs, medicaments and biological substances
CPT/HCPCS: 76705; 80048; 80076; 81001; 83690; 85025; 96361; 96374; 96375; 99284; C9113; J1885; J2405

== ENCOUNTER → 2020-03-28 | Outpatient (CLI) | payer OTHER ==
[~2020-03-28] MED LIST changes: +ONDA4TAB6 PO; +PANT-23 PO
--- NOTE | 2020-03-28 11:16 | REPMRS ---
Patient History The patient states she had a clinical breast exam in January 2020. Family history of breast cancer in maternal grandmother, endometrial cancer in maternal aunt. Took hormonal contraceptives for 23 years. Took estrogen for 1 year 6 months. Digital Woman Screen Mammo: March 28, 2020 - Exam #: [id number] Bilateral CC and MLO view(s) were taken. Technologist: Hazel Paul, Technologist Prior study comparison: March 25, 2019, bilateral digital woman screen mammo performed at [facility]. December 31, 2017, bilateral digital woman screen mammo performed at [facility]. October 25, 2016, digital woman screen mammo performed at [facility]. FINDINGS: The breast tissue is heterogeneously dense. This may lower the sensitivity of mammography. The Volpara volumetric breast density category is: C. There is a moderate amount of heterogeneously dense fibroglandular tissue which is fairly symmetric. There is no interval development of dominant mass, architectural distortion, or grouped microcalcification typical of malignancy. There has been no change in the appearance of the mammogram from the prior studies. 3-D tomosynthesis shows no additional findings. Assessment: BI-RADS/ACR category 1 mammogram. Negative Mammogram. Recommendation Routine screening mammogram of both breasts in 1 year (for women over age 40). This patient's [facility] Lifetime Breast Cancer RIsk is estimated at 15.9 %. This mammogram was interpreted with the aid of an FDA-approved computer-aided dectection system. Electronically Signed By: Dillon Do MD 03/28/20 1296
== END ==
LOC: M WHC 10:44
PROVIDERS: ATTEND Nurse Practitioner Family
DX: Z12.31 Encounter for screening mammogram for malignant neoplasm of breast (principal); Z92.0 Personal history of contraception

== ENCOUNTER → 2020-04-16 | Outpatient (CLI) | payer OTHER | LOC: M LABSMTC 10:12 | PROVIDERS: ATTEND Anesthesiology Pain Medicine | DX: Z01.812 Encounter for preprocedural laboratory examination (principal); M54.5 Low back pain; Z20.822 Contact with and (suspected) exposure to COVID-19 ==

== ENCOUNTER → 2020-05-01 | Outpatient (CLI) | payer OTHER | LOC: M LABSMTC 09:38 | PROVIDERS: ATTEND Anesthesiology Pain Medicine | DX: Z11.59 Encounter for screening for other viral diseases (principal) ==

== ENCOUNTER 2020-05-05 09:51 | Emergency (ER) | payer OTHER ==
[~2020-05-05] VITALS: Ht 160 cm; Wt 54.2 kg
[2020-05-05] MEDS ORDERED: VALA500T5 (10:01)
[2020-05-05] MEDS ORDERED: FLUTISP (10:01)
[2020-05-05] MEDS ORDERED: AMLO1TAB24 (10:01)
[2020-05-05] MEDS ORDERED: PRED20TA (10:01)
[2020-05-05] MEDS ORDERED: HYDR200T3 (10:01)
[2020-05-05] MEDS ORDERED: NAPR-885 (10:01)
[2020-05-05] MEDS ORDERED: CETI-24 (10:01)
[2020-05-05] MEDS ORDERED: diphenhydrAMINE 50MG/ML VIAL (J1200) IV ONE (10:35)
[2020-05-05] MEDS ORDERED: NS 1,000 ML IV ONE (10:35)
[2020-05-05] MEDS ORDERED: ACETAMINOPHEN 500 MG TAB PO ONE (10:35)
--- NOTE | 2020-05-05 10:48 | REP ---
INDICATION: headache x7 days COMPARISON: None. TECHNIQUE: Axial noncontrast images from the skull base to the vertex with coronal reformations. This CT examination was performed using the following dose reduction techniques: Automated exposure control, adjustment of mA and/or kv according to the patient's size, and use of iterative reconstruction technique. FINDINGS: The ventricles, sulci, and cisterns are normal in position and appearance. Marte-white differentiation is maintained. No acute intracranial hemorrhage, mass/mass effect, pathology or trauma/injury. No evidence for acute infarction. No extra-axial fluid collection. Calvarium is intact. Paranasal sinuses and mastoid air cells are clear. IMPRESSION: Normal noncontrast head CT. No evidence for acute intracranial pathology or trauma/injury. <Electronically signed by Tom Ritter > 05/05/20 1049
[2020-05-05] MEDS ORDERED: KETOROLAC 30 MG/ML 1ML VIAL IV ONE (13:00)
[2020-05-05 13:35] VITALS: BP 131/80
== END 2020-05-05 13:38 | disposition home or self-care (01) ==
LOC: M ED 09:51
DX: G44.209 Tension-type headache, unspecified, not intractable (principal); L94.9 Localized connective tissue disorder, unspecified; F32.9 Major depressive disorder, single episode, unspecified; F41.9 Anxiety disorder, unspecified; F19.10 Other psychoactive substance abuse, uncomplicated; Z85.828 Personal history of other malignant neoplasm of skin; K21.9 Gastro-esophageal reflux disease without esophagitis; E05.00 Thyrotoxicosis with diffuse goiter without thyrotoxic crisis or storm; F12.10 Cannabis abuse, uncomplicated; Z79.899 Other long term (current) drug therapy; Z88.8 Allergy status to other drugs, medicaments and biological substances
CPT/HCPCS: 70450; 80047; 96361; 96374; 96375; 99284; J1200; J1885

== ENCOUNTER → 2020-06-18 | Outpatient (CLI) | payer OTHER ==
[~2020-06-18] MED LIST changes: +AMLO1TAB24; +CETI-24; +FLUTISP; +HYDR200T3; +NAPR-885; +PRED20TA; +VALA500T5
== END ==
LOC: M LABSMTC 09:20
DX: Z01.812 Encounter for preprocedural laboratory examination (principal); Z20.828 Contact with and (suspected) exposure to other viral communicable diseases; M54.2 Cervicalgia

== ENCOUNTER → 2020-07-07 | Outpatient (CLI) | payer SELFPAY | LOC: M LABSMTC 13:48 | PROVIDERS: ATTEND Pediatrics | DX: Z11.52 Encounter for screening for COVID-19 (principal) ==

== ENCOUNTER 2020-11-20 21:15 | Emergency (ER) | payer OTHER, SELFPAY ==
[~2020-11-20 21:15] MED LIST changes: -AMLO1TAB24; +AMLO1TAB24 PO; -CETI-24; +CETI-24 PO; -FLUTISP; +FLUTISP NARES; -HYDR200T3; +HYDR200T3 PO; -NAPR-885; -VALA500T5; +VALA500T5 PO
[2020-11-20 23:19] LABS: HEMATOCRIT 42.9 % (36.0-47.0); HEMOGLOBIN 14.3 g/dl (12.0-15.5); MEAN CORPUSCULAR HEMOGLOBIN 32.8 pg (27.0-33.0); MEAN CORPUSCULAR HGB CONC 33.3 g/dl (32.0-36.5); MEAN CORPUSCULAR VOLUME 98.4 fl (80.0-96.0); PLATELET COUNT, AUTOMATED 310 10^3/uL (150-450); RED BLOOD COUNT 4.36 10^6/uL (4.00-5.40); WHITE BLOOD COUNT 9.5 10^3/uL (4.0-10.0)
[2020-11-20 23:56] LABS: ACETAMINOPHEN LEVEL < 2.0 UG/ML (10.0-30.0); ALBUMIN 4.4 GM/DL (3.2-5.2); ALT/SGPT 29 U/L (12-78); AMPHETAMINES LEVEL URINE NEGATIVE (NEGATIVE); BARBITURATES URINE NEGATIVE (NEGATIVE); BENZODIAZEPINES URINE NEGATIVE (NEGATIVE); BILIRUBIN,DIRECT 0.1 MG/DL (0.0-0.2); BILIRUBIN,TOTAL 0.4 MG/DL (0.2-1.0); BLOOD UREA NITROGEN 10 MG/DL (7-18); CALCIUM LEVEL 8.9 MG/DL (8.5-10.1); CANNABINOIDS URINE POSITIVE (NEGATIVE); CARBON DIOXIDE LEVEL 31 MEQ/L (21-32); CHLORIDE LEVEL 103 MEQ/L (98-107); COCAINE METABOLITE URINE NEGATIVE (NEGATIVE); CREATININE FOR GFR 0.76 MG/DL (0.55-1.30); ETHYL ALCOHOL (ETHANOL) 0.275 % (0.000-0.010); GLOMERULAR FILTRATION RATE > 60.0 (>51); GLUCOSE, FASTING 83 MG/DL (70-100); METHADONE URINE NEGATIVE (NEGATIVE); OPIATES URINE NEGATIVE (NEGATIVE); PHENCYCLIDINE URINE NEGATIVE (NEGATIVE); POTASSIUM SERUM 4.5 MEQ/L (3.5-5.1); SODIUM LEVEL 138 MEQ/L (136-145); TOTAL PROTEIN 7.6 GM/DL (6.4-8.2)
[2020-11-21] MEDS ORDERED: VITMTA PO (05:36)
[2020-11-21] MEDS ORDERED: HYDR200T3 PO (05:36)
[2020-11-21] MEDS ORDERED: LEVO88TA3 PO (05:36)
[2020-11-21] MEDS ORDERED: D200CAP3 PO (05:36)
[2020-11-21] MEDS ORDERED: MIRT-62 PO (05:36)
[2020-11-21] MEDS ORDERED: TIZA2CAP PO (05:36)
[2020-11-21] MEDS ORDERED: CALC600T60 PO (05:36)
[2020-11-21] MEDS ORDERED: OMEP-218 PO (05:36)
[2020-11-21] MEDS ORDERED: FLUT1INH2 INH (05:36)
[2020-11-21] MEDS ORDERED: VENTAER INH (05:36)
[2020-11-21] MEDS ORDERED: HOME MED LIST COMPLETE! XX SCH (05:40)
[2020-11-21 06:00] VITALS: BP 142/68
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
== END 2020-11-21 09:48 | disposition home or self-care (01) ==
LOC: M ED 21:15
DX: F10.120 Alcohol abuse with intoxication, uncomplicated (principal); E03.9 Hypothyroidism, unspecified

== ENCOUNTER → 2020-12-07 | Outpatient (CLI) | payer OTHER ==
[~2020-12-07] MED LIST changes: +CALC600T60 PO; +D200CAP3 PO; +FLUT1INH2 INH; +LEVO88TA3 PO; +MIRT-62 PO; +OMEP-218 PO; +TIZA2CAP PO; +VENTAER INH; +VITMTA PO
--- NOTE | 2020-12-07 16:44 | REP ---
INDICATION: CHRONIC LOW BACK PAIN. COMPARISON: 10/17/2018 TECHNIQUE: Five views FINDINGS: Since the last examination a minimal grade 1 L3 upon L4 spondylolisthesis has developed. Hypertrophic degenerative facet joint changes are seen at every level bilaterally increased from the prior exam. Vertebral body height is within normal limits and unchanged. There is minimal anterior lipping seen. Bilateral marginal osteophytosis is again seen at L2-3 status quo. The pedicles are intact bilaterally. There is unchanged mild disc space narrowing. IMPRESSION: Degenerative changes as described above. <Electronically signed by Fili Story > 12/07/20 1640
--- NOTE | 2020-12-07 17:45 | REP ---
INDICATION: CHRONIC LOW BACK PAIN. COMPARISON: 04/03/2019 TECHNIQUE: AP and frog lateral views FINDINGS: The joint space is symmetric and well maintained. There is no fracture, dislocation, or subluxation. There is no buttressing. IMPRESSION: Within normal limits and unchanged from the prior exam. <Electronically signed by Fili Story > 12/07/20 5230
== END ==
LOC: M RAD 15:58
PROVIDERS: ATTEND Nurse Practitioner Family
DX: M54.59 Other low back pain (principal)

== ENCOUNTER → 2020-12-08 | Outpatient (REF) | payer OTHER ==
[2020-12-08 13:05] LABS: HEMOGLOBIN 14.7 g/dl (12.0-15.5); MEAN CORPUSCULAR HEMOGLOBIN 32.7 pg (27.0-33.0); MEAN CORPUSCULAR HGB CONC 33.4 g/dl (32.0-36.5); PLATELET COUNT, AUTOMATED 348 10^3/uL (150-450); RED BLOOD COUNT 4.49 10^6/uL (4.00-5.40)
[2020-12-08 16:16] LABS: ALBUMIN 4.3 GM/DL (3.2-5.2); ALT/SGPT 26 U/L (12-78); BILIRUBIN,TOTAL 0.5 MG/DL (0.2-1.0); BLOOD UREA NITROGEN 14 MG/DL (7-18); CALCIUM LEVEL 9.4 MG/DL (8.5-10.1); CARBON DIOXIDE LEVEL 29 MEQ/L (21-32); CHLORIDE LEVEL 102 MEQ/L (98-107); CHOLESTEROL LEVEL 193 MG/DL (<200); CHOLESTEROL RISK RATIO 1.989 (<5); CREATININE FOR GFR 0.73 MG/DL (0.55-1.30); FREE T4 1.04 NG/DL (0.76-1.46); GLOMERULAR FILTRATION RATE > 60.0 (>51); GLUCOSE, FASTING 90 MG/DL (70-100); HDL CHOLESTEROL 97 MG/DL (>40); LDL CHOLESTEROL 81 MG/DL (<100); NON-HDL-C 96 MG/DL; POTASSIUM SERUM 4.5 MEQ/L (3.5-5.1); SODIUM LEVEL 139 MEQ/L (136-145); TOTAL PROTEIN 7.3 GM/DL (6.4-8.2); TRIGLYCERIDES LEVEL 74 MG/DL (<150)
[2020-12-08 16:20] LABS: TOTAL 25(OH) VITAMIN D 50.6 NG/ML (30.0-100.0)
== END ==
LOC: M SFHCADAM 10:59
PROVIDERS: ATTEND Family Medicine
DX: E03.9 Hypothyroidism, unspecified (principal); R76.8 Other specified abnormal immunological findings in serum; M85.80 Other specified disorders of bone density and structure, unspecified site

== ENCOUNTER → 2021-05-03 | Outpatient (CLI) | payer OTHER ==
[~2021-05-03] MED LIST changes: -FLUC150T PO; +FLUC150T9 PO; +OMEP-173 PO; -OMEP-218 PO
== END ==
LOC: M WHC 11:02
PROVIDERS: ATTEND Nurse Practitioner Family
DX: Z12.31 Encounter for screening mammogram for malignant neoplasm of breast (principal)

== ENCOUNTER 2021-11-12 15:32 | Emergency (ER) | payer OTHER ==
[~2021-11-12] VITALS: Ht 160 cm; Wt 51.2 kg
[2021-11-12] MEDS ORDERED: MELO7.5T35 (16:20)
[2021-11-12] MEDS ORDERED: dexameTHASONE 20MG/5ML VIAL (J1100 PER 1MG) IM ONE (19:05)
[2021-11-12 20:08] VITALS: BP 123/70
== END 2021-11-12 20:13 | disposition home or self-care (01) ==
LOC: M ED 15:32
DX: S73.109A Unspecified sprain of unspecified hip, initial encounter (principal); M06.9 Rheumatoid arthritis, unspecified; M25.50 Pain in unspecified joint; W19.XXXA Unspecified fall, initial encounter; E03.9 Hypothyroidism, unspecified; M32.9 Systemic lupus erythematosus, unspecified; F32.9 Major depressive disorder, single episode, unspecified; F41.9 Anxiety disorder, unspecified; F12.10 Cannabis abuse, uncomplicated; Z79.890 Hormone replacement therapy; Z79.899 Other long term (current) drug therapy; Z88.8 Allergy status to other drugs, medicaments and biological substances
CPT/HCPCS: 72110; 72190; 96372; 99283; J1100

== ENCOUNTER → 2021-11-22 | Outpatient (CLI) | payer OTHER ==
[~2021-11-22] MED LIST changes: +MELO7.5T35
== END ==
LOC: M RAD 17:37
PROVIDERS: ATTEND Physician Assistant
DX: R07.81 Pleurodynia (principal)

== ENCOUNTER → 2021-12-20 | Outpatient (CLI) | payer OTHER ==
[2021-12-20 15:32] LABS: HEMATOCRIT 44.3 % (36.0-47.0); HEMOGLOBIN 14.3 g/dl (12.0-15.5); MEAN CORPUSCULAR HEMOGLOBIN 31.6 pg (27.0-33.0); MEAN CORPUSCULAR HGB CONC 32.3 g/dl (32.0-36.5); PLATELET COUNT, AUTOMATED 323 10^3/uL (150-450); RED BLOOD COUNT 4.52 10^6/uL (4.00-5.40); WHITE BLOOD COUNT 12.2 10^3/uL (4.0-10.0)
[2021-12-20 16:41] LABS: ALBUMIN 4.2 GM/DL (3.2-5.2); ALT/SGPT 23 U/L (12-78); BILIRUBIN,TOTAL 0.5 MG/DL (0.2-1.0); BLOOD UREA NITROGEN 13 MG/DL (7-18); CALCIUM LEVEL 9.5 MG/DL (8.5-10.1); CARBON DIOXIDE LEVEL 29 MEQ/L (21-32); CHLORIDE LEVEL 104 MEQ/L (98-107); CHOLESTEROL LEVEL 207 MG/DL (<200); CREATININE FOR GFR 0.72 MG/DL (0.55-1.30); FREE T4 1.16 NG/DL (0.76-1.46); GLOMERULAR FILTRATION RATE > 60.0 (>51); GLUCOSE, FASTING 92 MG/DL (70-100); HDL CHOLESTEROL 99 MG/DL (>40); LDL CHOLESTEROL 93 MG/DL (<100); NON-HDL-C 108 MG/DL; POTASSIUM SERUM 4.3 MEQ/L (3.5-5.1); SODIUM LEVEL 139 MEQ/L (136-145); TOTAL PROTEIN 7.2 GM/DL (6.4-8.2); TRIGLYCERIDES LEVEL 77 MG/DL (<150)
[2021-12-20 16:47] LABS: TOTAL 25(OH) VITAMIN D 63.5 NG/ML (30.0-100.0)
== END ==
LOC: M PLALAB 11:59
PROVIDERS: ATTEND Family Medicine
DX: E03.9 Hypothyroidism, unspecified (principal); G44.209 Tension-type headache, unspecified, not intractable; M85.80 Other specified disorders of bone density and structure, unspecified site; M99.01 Segmental and somatic dysfunction of cervical region

== ENCOUNTER → 2022-01-11 | Outpatient (CLI) | payer OTHER | LOC: M WHC 13:35 | PROVIDERS: ATTEND Internal Medicine Endocrinology, Diabetes & Metabolism | DX: M85.89 Other specified disorders of bone density and structure, multiple sites (principal) ==

== ENCOUNTER → 2022-03-13 | Outpatient (REF) | payer OTHER ==
[2022-03-13 17:50] LABS: HEMATOCRIT 44.5 % (36.0-47.0); HEMOGLOBIN 14.4 g/dl (12.0-15.5); MEAN CORPUSCULAR HEMOGLOBIN 31.2 pg (27.0-33.0); MEAN CORPUSCULAR HGB CONC 32.4 g/dl (32.0-36.5); MEAN CORPUSCULAR VOLUME 96.5 fl (80.0-96.0); PLATELET COUNT, AUTOMATED 319 10^3/uL (150-450); RED BLOOD COUNT 4.61 10^6/uL (4.00-5.40); WHITE BLOOD COUNT 8.4 10^3/uL (4.0-10.0)
[2022-03-13 19:39] LABS: ALBUMIN 4.1 G/DL (3.2-5.2); ALKALINE PHOSPHATASE 55 U/L (46-116); ALT/SGPT 19 U/L (7.0-40); AST/SGOT 29 U/L (<34); BILIRUBIN,TOTAL 0.4 MG/DL (0.3-1.2); BLOOD UREA NITROGEN 14 MG/DL (9-23); C REACTIVE PROTEIN QUANTITATIV < 0.40 MG/DL (<1.0); CALCIUM LEVEL 9.6 MG/DL (8.5-10.1); CARBON DIOXIDE LEVEL 28 MMOL/L (20-31); CHLORIDE LEVEL 104 MMOL/L (98-107); GLOMERULAR FILTRATION RATE > 60.0 (>51); GLUCOSE, FASTING 94 MG/DL (60-100); POTASSIUM SERUM 4.5 MMOL/L (3.5-5.1); SODIUM LEVEL 140 MMOL/L (136-145); TOTAL PROTEIN 6.9 G/DL (5.7-8.2)
== END ==
LOC: M SFHCADAM 12:26
PROVIDERS: ATTEND Family Medicine
DX: R06.09 Other forms of dyspnea (principal); R05.3 Chronic cough; U09.9 Post COVID-19 condition, unspecified

== ENCOUNTER → 2022-03-13 | Outpatient (CLI) | payer OTHER | LOC: M ADAMS 12:44 | PROVIDERS: ATTEND Family Medicine | DX: R06.09 Other forms of dyspnea (principal); R05.3 Chronic cough; U09.9 Post COVID-19 condition, unspecified ==

== ENCOUNTER → 2022-03-14 | Outpatient (CLI) | payer OTHER ==
[~2022-03-14] MED LIST changes: +ISOVUE-370 76% 100ML VIAL As Ordered ONE
== END ==
LOC: M RAD 14:19
PROVIDERS: ATTEND Family Medicine
DX: R05.3 Chronic cough (principal); U09.9 Post COVID-19 condition, unspecified; R79.89 Other specified abnormal findings of blood chemistry; I70.0 Atherosclerosis of aorta; R06.09 Other forms of dyspnea; M51.26 Other intervertebral disc displacement, lumbar region

== ENCOUNTER → 2022-05-17 | Outpatient (CLI) | payer OTHER ==
[~2022-05-17] MED LIST changes: -ISOVUE-370 76% 100ML VIAL As Ordered ONE
== END ==
LOC: M WHC 13:39
PROVIDERS: ATTEND Family Medicine
DX: Z12.31 Encounter for screening mammogram for malignant neoplasm of breast (principal); M85.80 Other specified disorders of bone density and structure, unspecified site

== ENCOUNTER → 2022-05-17 | Outpatient (CLI) | payer OTHER | LOC: M PLALAB 14:27 | PROVIDERS: ATTEND Internal Medicine Endocrinology, Diabetes & Metabolism | DX: E55.9 Vitamin D deficiency, unspecified (principal) ==

== ENCOUNTER → 2022-11-22 | Outpatient (CLI) | payer OTHER ==
[~2022-11-22] MED LIST changes: +FLUT50SP17 NARES; -FLUTISP NARES; -HYDR200T3 PO; +HYDR200T46 PO; -MIRT-62 PO; +MIRT-88 PO
[2022-11-22 18:22] LABS: BLOOD UREA NITROGEN 17 MG/DL (9-23); CALCIUM LEVEL 10.3 MG/DL (8.5-10.1); CARBON DIOXIDE LEVEL 28 MMOL/L (20-31); CHLORIDE LEVEL 101 MMOL/L (98-107); CREATININE FOR GFR 0.62 MG/DL (0.55-1.30); GLOMERULAR FILTRATION RATE > 60.0 (>51); GLUCOSE, FASTING 78 MG/DL (60-100); POTASSIUM SERUM 4.5 MMOL/L (3.5-5.1); SODIUM LEVEL 137 MMOL/L (136-145)
[2022-11-22 18:25] LABS: FREE T4 1.22 NG/DL (0.89-1.76); THYROID STIMULATING HORMONE 3.122 uIU/ML (0.55-4.78); TOTAL 25(OH) VITAMIN D 42.2 NG/ML (20.0-100.0)
== END ==
LOC: M LAB 16:44
PROVIDERS: ATTEND Internal Medicine Endocrinology, Diabetes & Metabolism
DX: E55.9 Vitamin D deficiency, unspecified (principal); E89.0 Postprocedural hypothyroidism; M80.00XD Age-related osteoporosis with current pathological fracture, unspecified site, subsequent encounter for fracture with routine healing

== ENCOUNTER → 2023-01-10 | Outpatient (REF) | payer OTHER | LOC: M SFHCADAM 09:43 | PROVIDERS: ATTEND Family Medicine | DX: J01.00 Acute maxillary sinusitis, unspecified (principal); E03.9 Hypothyroidism, unspecified; F43.22 Adjustment disorder with anxiety; Z13.1 Encounter for screening for diabetes mellitus; Z53.9 Procedure and treatment not carried out, unspecified reason ==

== ENCOUNTER → 2023-04-25 | Outpatient (REF) | payer OTHER ==
[~2023-04-25] MED LIST changes: -ASPI-161 PO; +ASPI-615 PO; -BIOT50004 PO; +BIOT5CAP8 PO; -FLUT50SP17 NARES; +FLUTISP NARES
[2023-04-25 16:37] LABS: HEMATOCRIT 41.4 % (36.0-47.0); HEMOGLOBIN 13.6 g/dl (12.0-15.5); MEAN CORPUSCULAR HEMOGLOBIN 33.5 pg (27.0-33.0); MEAN CORPUSCULAR HGB CONC 32.9 g/dl (32.0-36.5); PLATELET COUNT, AUTOMATED 307 10^3/uL (150-450); RED BLOOD COUNT 4.06 10^6/uL (4.00-5.40); WHITE BLOOD COUNT 8.1 10^3/uL (4.0-10.0)
[2023-04-25 16:56] LABS: ALBUMIN 3.7 G/DL (3.2-5.2); ALKALINE PHOSPHATASE 68 U/L (46-116); ALT/SGPT 22 U/L (7.0-40); AST/SGOT 20 U/L (<34); BILIRUBIN,TOTAL 0.3 MG/DL (0.3-1.2); BLOOD UREA NITROGEN 20 MG/DL (9-23); CALCIUM LEVEL 9.4 MG/DL (8.5-10.1); CARBON DIOXIDE LEVEL 30 MMOL/L (20-31); CHLORIDE LEVEL 106 MMOL/L (98-107); CHOLESTEROL LEVEL 190 MG/DL (<200); CHOLESTEROL RISK RATIO 2.12 (<5); CREATININE FOR GFR 0.76 MG/DL (0.55-1.30); GLOMERULAR FILTRATION RATE > 60.0 (>51); GLUCOSE, FASTING 91 MG/DL (60-100); HDL CHOLESTEROL 89.5 MG/DL (>40); LDL CHOLESTEROL 77.1 MG/DL (<100); NON-HDL-C 100.5 MG/DL; POTASSIUM SERUM 4.4 MMOL/L (3.5-5.1); SODIUM LEVEL 140 MMOL/L (136-145); TOTAL PROTEIN 6.5 G/DL (5.7-8.2); TRIGLYCERIDES LEVEL 117 MG/DL (<150)
[2023-04-25 16:57] LABS: FREE T4 1.21 NG/DL (0.89-1.76)
[2023-04-25 16:58] LABS: THYROID STIMULATING HORMONE 0.808 uIU/ML (0.55-4.78)
[2023-04-25 17:18] LABS: HEMOGLOBIN A1c 5.5 % (4.0-6.0)
== END ==
LOC: M SFHCADAM 14:24
PROVIDERS: ATTEND Family Medicine
DX: J01.00 Acute maxillary sinusitis, unspecified (principal); E03.9 Hypothyroidism, unspecified; F43.22 Adjustment disorder with anxiety; Z13.1 Encounter for screening for diabetes mellitus

== ENCOUNTER → 2023-05-20 | Outpatient (CLI) | payer OTHER | LOC: M WHC 09:06 | PROVIDERS: ATTEND Physician Assistant Medical | DX: Z12.31 Encounter for screening mammogram for malignant neoplasm of breast (principal); R92.333 Mammographic heterogeneous density, bilateral breasts ==

== ENCOUNTER → 2023-08-20 | Outpatient (CLI) | payer OTHER ==
[~2023-08-20] MED LIST changes: +ONDA-282 PO; -ONDA4TAB6 PO
[2023-08-20 19:11] LABS: BLOOD UREA NITROGEN 9 MG/DL (9-23); CALCIUM LEVEL 9.3 MG/DL (8.5-10.1); CARBON DIOXIDE LEVEL 30 MMOL/L (20-31); CHLORIDE LEVEL 104 MMOL/L (98-107); CREATININE FOR GFR 0.67 MG/DL (0.55-1.30); GLOMERULAR FILTRATION RATE > 60.0 (>51); GLUCOSE, FASTING 88 MG/DL (60-100); POTASSIUM SERUM 4.5 MMOL/L (3.5-5.1); SODIUM LEVEL 139 MMOL/L (136-145)
[2023-08-20 19:16] LABS: TOTAL 25(OH) VITAMIN D 66.1 NG/ML (20.0-100.0)
== END ==
LOC: M PLALAB 14:36
PROVIDERS: ATTEND Internal Medicine Endocrinology, Diabetes & Metabolism
DX: M80.00XD Age-related osteoporosis with current pathological fracture, unspecified site, subsequent encounter for fracture with routine healing (principal)

== ENCOUNTER 2023-08-30 11:40 | Emergency (ER) | payer OTHER ==
[~2023-08-30] VITALS: Ht 160 cm; Wt 54.0 kg
[2023-08-30] MEDS: NORCO, ANEXSIA 5/325MG TABLET (HYDROcodone/ACETAMINOPHEN) PO ONE (13:56)
[2023-08-30] MEDS ORDERED: HYDR-4571 PO (16:19)
[2023-08-30 16:36] VITALS: BP 168/76; TEMP 98.8; O2SAT 98
== END 2023-08-30 16:38 | disposition home or self-care (01) ==
LOC: M ED 11:40
DX: S42.021A Displaced fracture of shaft of right clavicle, initial encounter for closed fracture (principal); S22.41XA Multiple fractures of ribs, right side, initial encounter for closed fracture; V00.831A Fall from motorized mobility scooter, initial encounter; M50.221 Other cervical disc displacement at C4-C5 level; M50.222 Other cervical disc displacement at C5-C6 level; M25.78 Osteophyte, vertebrae; F12.10 Cannabis abuse, uncomplicated; M48.02 Spinal stenosis, cervical region; F10.10 Alcohol abuse, uncomplicated; F41.9 Anxiety disorder, unspecified; F32.A Depression, unspecified; M54.50 Low back pain, unspecified; Z79.52 Long term (current) use of systemic steroids; Z79.899 Other long term (current) drug therapy; Z88.5 Allergy status to narcotic agent; Z88.8 Allergy status to other drugs, medicaments and biological substances; Y92.9 Unspecified place or not applicable; Y93.89 Activity, other specified; Y99.9 Unspecified external cause status

== ENCOUNTER → 2023-09-02 | Outpatient (CLI) | payer OTHER ==
[~2023-09-02] MED LIST changes: +HYDR-4571 PO
== END ==
LOC: M SOG 12:28
PROVIDERS: ATTEND Orthopaedic Surgery Hand Surgery
DX: S42.001A Fracture of unspecified part of right clavicle, initial encounter for closed fracture (principal); Y93.9 Activity, unspecified; Y92.9 Unspecified place or not applicable

== ENCOUNTER 2023-09-09 07:01 | Day surgery (SDC) | payer OTHER ==
[~2023-09-09] VITALS: Ht 157.5 cm; Wt 54.0 kg
[~2023-09-09 07:01] MED LIST changes: +AZAT50TA37 PO; +CLON1TAB8 PO; +DULO1CAP6 PO; +PROP10TA56 PO
[2023-09-09] MEDS ORDERED: LR 1,000 ML IV SCH ×2 (07:15→14:05)
[2023-09-09] MEDS ORDERED: OXYC1TAB23 PO (07:49)
[2023-09-09] MEDS ORDERED: [UNRECOGNIZED DRUG - OTHER] SQ (07:49)
[2023-09-09] MEDS ORDERED: ONDA-282 PO (07:49)
[2023-09-09] MEDS ORDERED: ROCURONIUM BROMIDE 50MG/5ML VIAL As Ordered ONE (09:23)
[2023-09-09] MEDS ORDERED: MIDAZOLAM INJ 2MG/2ML VIAL As Ordered ONE (09:23)
[2023-09-09] MEDS ORDERED: propofoL 200 MG/20 ML VIAL As Ordered ONE (09:23)
[2023-09-09] MEDS ORDERED: fentaNYL 100 MCG/2 ML INJECTION As Ordered ONE (09:23)
[2023-09-09] MEDS ORDERED: LIDOCAINE 2% 100MG/5ML SDV (FOR ANES.) As Ordered ONE (09:24)
[2023-09-09] MEDS ORDERED: BACITRACIN OINTMENT 30GM TUBE As Ordered ONE (10:06)
[2023-09-09] MEDS: ceFAZolin 2 GM/D5W 50 ML IV BAG As Ordered ONE (10:50)
[2023-09-09] MEDS ORDERED: ePHEDrine SULFATE 25 MG/5 ML(5MG/ML) SYRINGE As Ordered ONE (11:08)
[2023-09-09] MEDS ORDERED: ACETAMINOPHEN 1000MG 100ML IV BAG As Ordered ONE (11:09)
[2023-09-09] MEDS ORDERED: ONDANSETRON 4MG 2ML VIAL As Ordered ONE (11:21)
[2023-09-09] MEDS ORDERED: SUGAMMADEX SODIUM 500 MG/5 ML VIAL (BRIDION) As Ordered ONE (11:21)
[2023-09-09] MEDS ORDERED: HYDROmorphone HCL 2MG/ML 1ML VIAL As Ordered ONE (13:04)
[2023-09-09] MEDS: LIDOCAINE W/EPINEPHRINE 1% 20ML VIAL As Ordered ONE (13:53)
[2023-09-09] MEDS ORDERED: HYDROMORPHONE HCL 0.5 MG/ 0.5 ML SYRINGE IV PRN (14:05)
[2023-09-09] MEDS ORDERED: fentaNYL 100 MCG/2 ML INJECTION IV PRN (14:05)
[2023-09-09] MEDS: ONDANSETRON 4MG 2ML VIAL IV PRN (14:56)
[2023-09-09] MEDS: oxyCODONE 5MG TAB PO PRN (14:56)
[2023-09-09 17:05] VITALS: BP 138/87; TEMP 97.4; O2SAT 94
== END 2023-09-09 17:10 | disposition home or self-care (01) ==
LOC: M SDC 07:01
PROVIDERS: ATTEND Orthopaedic Surgery Hand Surgery
DX: S42.001A Fracture of unspecified part of right clavicle, initial encounter for closed fracture (principal); V00.841A Fall from standing electric scooter, initial encounter; Y92.89 Other specified places as the place of occurrence of the external cause; Y93.9 Activity, unspecified; Y99.9 Unspecified external cause status; E05.90 Thyrotoxicosis, unspecified without thyrotoxic crisis or storm; E03.9 Hypothyroidism, unspecified; K21.9 Gastro-esophageal reflux disease without esophagitis; J45.909 Unspecified asthma, uncomplicated; A60.00 Herpesviral infection of urogenital system, unspecified; F32.A Depression, unspecified; F41.9 Anxiety disorder, unspecified; Z79.51 Long term (current) use of inhaled steroids; Z79.899 Other long term (current) drug therapy
CPT/HCPCS: 23515; 71045; 76000; 93005; C1713; J0131; J0665; J0690; J1170; J2250; J2405; J3010

== ENCOUNTER → 2023-09-16 | Outpatient (CLI) | payer OTHER ==
[~2023-09-16] MED LIST changes: +[UNRECOGNIZED DRUG - OTHER] SQ
== END ==
LOC: M SOG 07:57
PROVIDERS: ATTEND Physician Assistant
DX: S42.001D Fracture of unspecified part of right clavicle, subsequent encounter for fracture with routine healing (principal)

== ENCOUNTER 2023-09-30 13:29 | Outpatient (RCR) | payer OTHER | END 2023-10-02 | LOC: M PT 13:29 | PROVIDERS: ATTEND Orthopaedic Surgery Hand Surgery | DX: S42.024D Nondisplaced fracture of shaft of right clavicle, subsequent encounter for fracture with routine healing (principal) ==

== ENCOUNTER → 2023-09-30 | Outpatient (CLI) | payer OTHER ==
[2023-09-30 11:54] LABS: APPEARANCE, URINE HAZY (CLEAR); BACTERIA, URINE AUTO NEGATIVE (NEGATIVE); BILIRUBIN, URINE AUTO NEGATIVE (NEGATIVE); BLOOD, URINE BLOOD NEGATIVE (NEGATIVE); COLOR, URINE AMBER (YELLOW); GLUCOSE, URINE (UA) AUTO NEGATIVE (NEGATIVE); KETONE, URINE AUTO NEGATIVE (NEGATIVE); LEUKOCYTE ESTERASE, URINE AUTO TRACE (NEGATIVE); MUCUS, URINE SMALL (NEGATIVE); NITRITE, URINE AUTO NEGATIVE (NEGATIVE); PROTEIN, URINE AUTO 1+ mg/dL (NEGATIVE); RBC, URINE AUTO 2 /HPF (0-3); SQUAMOUS EPITHELIAL CELL UR AU 4 /HPF (0-6); WBC, URINE AUTO 6 /HPF (0-3)
== END ==
LOC: M LAB 10:53
PROVIDERS: ATTEND Physician Assistant
DX: M35.9 Systemic involvement of connective tissue, unspecified (principal)

== ENCOUNTER → 2023-10-16 | Outpatient (CLI) | payer OTHER | LOC: M SOG 07:50 | PROVIDERS: ATTEND Physician Assistant | DX: S42.001A Fracture of unspecified part of right clavicle, initial encounter for closed fracture (principal); Y93.9 Activity, unspecified; Y92.9 Unspecified place or not applicable ==

== ENCOUNTER → 2023-10-24 | Outpatient (REF) | payer OTHER | LOC: M SFHCADAM 12:34 | PROVIDERS: ATTEND Physician Assistant | DX: R30.0 Dysuria (principal) ==

== ENCOUNTER 2023-10-29 09:50 | Outpatient (RCR) | payer OTHER | END 2023-11-02 | LOC: M PT 09:50 | PROVIDERS: ATTEND Orthopaedic Surgery Hand Surgery | DX: S42.024D Nondisplaced fracture of shaft of right clavicle, subsequent encounter for fracture with routine healing (principal) ==

== ENCOUNTER → 2023-11-05 | Outpatient (REF) | payer OTHER ==
[2023-11-05 17:40] LABS: APPEARANCE, URINE HAZY (CLEAR); BACTERIA, URINE AUTO NEGATIVE (NEGATIVE); BILIRUBIN, URINE AUTO NEGATIVE (NEGATIVE); BLOOD, URINE BLOOD NEGATIVE (NEGATIVE); COLOR, URINE AMBER (YELLOW); GLUCOSE, URINE (UA) AUTO NEGATIVE (NEGATIVE); KETONE, URINE AUTO NEGATIVE (NEGATIVE); LEUKOCYTE ESTERASE, URINE AUTO NEGATIVE (NEGATIVE); MUCUS, URINE SMALL (NEGATIVE); NITRITE, URINE AUTO NEGATIVE (NEGATIVE); PROTEIN, URINE AUTO NEGATIVE (NEGATIVE); RBC, URINE AUTO 0 /HPF (0-3); SPECIFIC GRAVITY URINE AUTO 1.015 (1.002-1.035); SQUAMOUS EPITHELIAL CELL UR AU 2 /HPF (0-6); UROBILINOGEN, URINE AUTO 0.2 mg/dL (0.0-2.0); WBC, URINE AUTO 3 /HPF (0-3)
== END ==
LOC: M LAB REF 16:23
PROVIDERS: ATTEND Physician Assistant Medical
DX: N39.0 Urinary tract infection, site not specified (principal)

== ENCOUNTER 2023-11-14 09:15 | Outpatient (RCR) | payer OTHER | END 2023-12-02 | LOC: M PT 09:15 | PROVIDERS: ATTEND Orthopaedic Surgery Hand Surgery | DX: S42.024D Nondisplaced fracture of shaft of right clavicle, subsequent encounter for fracture with routine healing (principal) ==

== ENCOUNTER → 2023-11-27 | Outpatient (CLI) | payer OTHER | LOC: M SOG 07:21 | PROVIDERS: ATTEND Physician Assistant | DX: S42.001D Fracture of unspecified part of right clavicle, subsequent encounter for fracture with routine healing (principal) ==

== ENCOUNTER 2023-12-30 09:14 | Outpatient (RCR) | payer OTHER | END 2024-01-02 | LOC: M PT 09:14 | PROVIDERS: ATTEND Orthopaedic Surgery Hand Surgery | DX: S42.024D Nondisplaced fracture of shaft of right clavicle, subsequent encounter for fracture with routine healing (principal) ==

== ENCOUNTER → 2024-01-10 | Outpatient (REF) ==
[~2024-01-10] MED LIST changes: -CYCL5TAB PO; +CYCL5TAB4 PO
== END ==
LOC: M LAB 14:19
PROVIDERS: ATTEND Family Medicine
DX: Z00.00 Encounter for general adult medical examination without abnormal findings (principal)

== ENCOUNTER → 2024-03-12 | Outpatient (REF) | payer OTHER | LOC: M SFHCPLAZ 17:10 | PROVIDERS: ATTEND Physician Assistant Medical | DX: J01.90 Acute sinusitis, unspecified (principal) ==

== ENCOUNTER → 2024-04-21 | Outpatient (REF) | payer OTHER ==
[2024-04-21 18:20] LABS: BASO % 0.3 % (0.0-1.0); EOS # 0.2 10^3/uL (0.0-0.5); EOS % 2.9 % (0.0-3.0); HEMATOCRIT 36.1 % (36.0-47.0); HEMOGLOBIN 12.1 g/dl (12.0-15.5); LYMPH # 1.7 10^3/uL (1.5-5.0); LYMPH % 29.7 % (24.0-44.0); MEAN CORPUSCULAR HEMOGLOBIN 39.8 pg (27.0-33.0); MEAN CORPUSCULAR HGB CONC 33.5 g/dl (32.0-36.5); MONO # 0.3 10^3/uL (0.0-0.8); MONO % 5.3 % (2.0-8.0); NEUTROPHILS # 3.6 10^3/uL (1.5-8.5); NEUTROPHILS % 61.6 % (36.0-66.0); PLATELET COUNT, AUTOMATED 432 10^3/uL (150-450); RED BLOOD COUNT 3.04 10^6/uL (4.00-5.40); WHITE BLOOD COUNT 5.8 10^3/uL (4.0-10.0)
[2024-04-21 18:23] LABS: MEAN CORPUSCULAR VOLUME 118.8 fl (80.0-96.0)
[2024-04-21 18:24] LABS: ALBUMIN 3.7 G/DL (3.2-5.2); ALKALINE PHOSPHATASE 71 U/L (35-104); ALT/SGPT 60 U/L (7.0-40); AST/SGOT 39 U/L (<34); BILIRUBIN,TOTAL 0.5 MG/DL (0.3-1.2); BLOOD UREA NITROGEN 12 MG/DL (9-23); CALCIUM LEVEL 9.9 MG/DL (8.5-10.1); CARBON DIOXIDE LEVEL 30 MMOL/L (20-31); CHLORIDE LEVEL 106 MMOL/L (98-107); CHOLESTEROL LEVEL 183 MG/DL (<200); CREATININE FOR GFR 0.71 MG/DL (0.55-1.30); GLOMERULAR FILTRATION RATE > 60.0 (>51); GLUCOSE, FASTING 85 MG/DL (60-100); LDL CHOLESTEROL 102.2 MG/DL (<100); MAGNESIUM LEVEL 1.8 MG/DL (1.8-2.4); POTASSIUM SERUM 4.4 MMOL/L (3.5-5.1); SODIUM LEVEL 142 MMOL/L (136-145); TRIGLYCERIDES LEVEL 89 MG/DL (<150)
[2024-04-21 18:26] LABS: FREE T4 1.41 NG/DL (0.89-1.76); THYROID STIMULATING HORMONE 2.788 uIU/ML (0.55-4.78)
[2024-04-21 18:39] LABS: ANISOCYTOSIS 1+; OVALOCYTES 1+; STOMATOCYTES 1+
[2024-04-21 18:40] LABS: TEAR DROP CELLS 1+
[2024-04-21 18:41] LABS: HELMET CELLS 1+; PLATELET ESTIMATE NORMAL (NORMAL); SCHISTOCYTES 1+
== END ==
LOC: M LABDRWAD 17:31
PROVIDERS: ATTEND Registered Nurse
DX: R94.31 Abnormal electrocardiogram [ECG] [EKG] (principal); R00.2 Palpitations

== ENCOUNTER → 2024-04-21 | Outpatient (CLI) | payer OTHER | LOC: M ADAMS 14:24 | PROVIDERS: ATTEND Family Medicine | DX: M54.6 Pain in thoracic spine (principal); M41.9 Scoliosis, unspecified ==

== ENCOUNTER → 2024-04-21 | Outpatient (REF) | payer OTHER ==
[2024-04-21 18:20] LABS: HEMATOCRIT 35.6 % (36.0-47.0); MEAN CORPUSCULAR HEMOGLOBIN 40.1 pg (27.0-33.0); MEAN CORPUSCULAR HGB CONC 33.7 g/dl (32.0-36.5); PLATELET COUNT, AUTOMATED 411 10^3/uL (150-450); RED BLOOD COUNT 2.99 10^6/uL (4.00-5.40); WHITE BLOOD COUNT 5.8 10^3/uL (4.0-10.0)
[2024-04-21 18:23] LABS: ALBUMIN 3.7 G/DL (3.2-5.2); ALKALINE PHOSPHATASE 71 U/L (35-104); ALT/SGPT 56 U/L (7.0-40); AST/SGOT 38 U/L (<34); BILIRUBIN,TOTAL 0.6 MG/DL (0.3-1.2); BLOOD UREA NITROGEN 13 MG/DL (9-23); CALCIUM LEVEL 9.9 MG/DL (8.5-10.1); CARBON DIOXIDE LEVEL 30 MMOL/L (20-31); CHLORIDE LEVEL 106 MMOL/L (98-107); CHOLESTEROL LEVEL 180 MG/DL (<200); CHOLESTEROL RISK RATIO 2.89 (<5); CREATININE FOR GFR 0.68 MG/DL (0.55-1.30); GLOMERULAR FILTRATION RATE > 60.0 (>51); GLUCOSE, FASTING 90 MG/DL (60-100); HDL CHOLESTEROL 62.1 MG/DL (>40); LDL CHOLESTEROL 99.3 MG/DL (<100); MAGNESIUM LEVEL 1.8 MG/DL (1.8-2.4); MEAN CORPUSCULAR VOLUME 119.1 fl (80.0-96.0); NON-HDL-C 117.9 MG/DL; POTASSIUM SERUM 4.3 MMOL/L (3.5-5.1); SODIUM LEVEL 142 MMOL/L (136-145); TOTAL PROTEIN 6.9 G/DL (5.7-8.2); TRIGLYCERIDES LEVEL 93 MG/DL (<150)
[2024-04-21 18:26] LABS: THYROID STIMULATING HORMONE 2.997 uIU/ML (0.55-4.78)
[2024-04-21 18:27] LABS: FREE T4 1.41 NG/DL (0.89-1.76)
[2024-04-21 18:29] LABS: HEMOGLOBIN A1c 5.1 % (4.0-6.0)
== END ==
LOC: M SFHCADAM 14:18
PROVIDERS: ATTEND Family Medicine
DX: N75.0 Cyst of Bartholin's gland (principal); F43.22 Adjustment disorder with anxiety; E03.9 Hypothyroidism, unspecified; M85.80 Other specified disorders of bone density and structure, unspecified site; Z13.1 Encounter for screening for diabetes mellitus; E83.42 Hypomagnesemia

== ENCOUNTER → 2024-04-22 | Outpatient (CLI) | payer OTHER | LOC: M EKG 13:25 | PROVIDERS: ATTEND Registered Nurse | DX: R00.2 Palpitations (principal); Z53.9 Procedure and treatment not carried out, unspecified reason ==

== ENCOUNTER → 2024-05-14 | Outpatient (CLI) | payer OTHER | LOC: M CARPUL 07:58 | PROVIDERS: ATTEND Registered Nurse | DX: R94.31 Abnormal electrocardiogram [ECG] [EKG] (principal); R07.9 Chest pain, unspecified ==

== ENCOUNTER → 2024-05-21 | Outpatient (CLI) | payer OTHER | LOC: M WHC 08:34 | PROVIDERS: ATTEND Nurse Practitioner Family | DX: M80.0 Age-related osteoporosis with current pathological fracture (principal) ==

== ENCOUNTER → 2024-05-21 | Outpatient (CLI) | payer OTHER | LOC: M WHC 08:34 | PROVIDERS: ATTEND Physician Assistant Medical | DX: Z12.31 Encounter for screening mammogram for malignant neoplasm of breast (principal) ==

== ENCOUNTER → 2024-06-01 | Outpatient (CLI) | payer OTHER ==
[2024-06-01 15:03] LABS: ALBUMIN 3.5 G/DL (3.2-5.2); BILIRUBIN,DIRECT 0.2 MG/DL (<0.4); BILIRUBIN,TOTAL 0.6 MG/DL (0.3-1.2); TOTAL PROTEIN 6.3 G/DL (5.7-8.2)
== END ==
LOC: M LAB 13:45
PROVIDERS: ATTEND Family Medicine
DX: R79.89 Other specified abnormal findings of blood chemistry (principal)

== ENCOUNTER → 2024-07-01 | Outpatient (CLI) | payer OTHER | LOC: M CARPUL 12:45 | PROVIDERS: ATTEND Registered Nurse | DX: R01.1 Cardiac murmur, unspecified (principal); I08.9 Rheumatic multiple valve disease, unspecified ==

== ENCOUNTER → 2024-07-09 | Outpatient (CLI) | payer OTHER ==
[2024-07-09 09:16] LABS: INR 0.97; PROTHROMBIN TIME 13.2 SECONDS (12.5-14.5)
[2024-07-09 09:37] LABS: ALBUMIN 4.2 G/DL (3.2-5.2); ALKALINE PHOSPHATASE 86 U/L (35-104); ALT/SGPT 71 U/L (7.0-40); AST/SGOT 46 U/L (<34); BILIRUBIN,TOTAL 0.6 MG/DL (0.3-1.2); BLOOD UREA NITROGEN 21 MG/DL (9-23); CALCIUM LEVEL 10.3 MG/DL (8.5-10.1); CARBON DIOXIDE LEVEL 28 MMOL/L (20-31); CHLORIDE LEVEL 109 MMOL/L (98-107); CREATININE FOR GFR 0.74 MG/DL (0.55-1.30); GLOMERULAR FILTRATION RATE > 90.0 (>51); GLUCOSE, FASTING 86 MG/DL (60-100); POTASSIUM SERUM 4.5 MMOL/L (3.5-5.1); SODIUM LEVEL 145 MMOL/L (136-145); TOTAL PROTEIN 7.6 G/DL (5.7-8.2)
[2024-07-09 09:40] LABS: FERRITIN 90.9 NG/ML (7.3-270.7)
[2024-07-09 09:51] LABS: HEPATITIS B CORE ANTIBODY IGM NEGATIVE (NEGATIVE); HEPATITIS C VIRUS ABY INDEX 0.03 INDEX (<0.8)
[2024-07-09 09:53] LABS: HEPATITIS B SURFACE ANTIGEN NEGATIVE (NEGATIVE)
[2024-07-12 16:02] LABS: LIVER-KIDNEY MICROSOMAL ABY <= 20.0 U (<=20.0)
[2024-07-13 10:42] LABS: ALPHA 1 ANTITRYPSIN 195 mg/dL (83-199)
[2024-07-13 15:52] LABS: ANA SCREEN, IFA POSITIVE (NEGATIVE); ANA TITER 1:40 titer (<1:40)
[2024-07-13 16:37] LABS: ANTI-MITOCHONDRIAL ANTIBODY NEGATIVE (NEGATIVE)
== END ==
LOC: M RAD 07:52
PROVIDERS: ATTEND Family Medicine
DX: R74.01 Elevation of levels of liver transaminase levels (principal); K80.20 Calculus of gallbladder without cholecystitis without obstruction; K76.0 Fatty (change of) liver, not elsewhere classified

== ENCOUNTER 2024-07-19 08:53 | Emergency (ER) | payer OTHER ==
[~2024-07-19] VITALS: Ht 157.5 cm; Wt 50.6 kg
[2024-07-19 08:58] VITALS: TEMP 97.8
[2024-07-19 11:39] VITALS: BP 124/72; O2SAT 96
== END 2024-07-19 12:09 | disposition short-term general hospital (02) ==
LOC: M ED 08:53
DX: S42.211A Unspecified displaced fracture of surgical neck of right humerus, initial encounter for closed fracture (principal); S02.612A Fracture of condylar process of left mandible, initial encounter for closed fracture; S02.601A Fracture of unspecified part of body of right mandible, initial encounter for closed fracture; V00.841A Fall from standing electric scooter, initial encounter; M19.042 Primary osteoarthritis, left hand; M50.321 Other cervical disc degeneration at C4-C5 level; M50.322 Other cervical disc degeneration at C5-C6 level; M47.812 Spondylosis without myelopathy or radiculopathy, cervical region; F12.10 Cannabis abuse, uncomplicated; F10.10 Alcohol abuse, uncomplicated; K21.9 Gastro-esophageal reflux disease without esophagitis; Z88.8 Allergy status to other drugs, medicaments and biological substances; Z79.899 Other long term (current) drug therapy; Z79.52 Long term (current) use of systemic steroids; Z79.83 Long term (current) use of bisphosphonates; Y92.480 Sidewalk as the place of occurrence of the external cause; Y93.89 Activity, other specified; Y99.9 Unspecified external cause status

== ENCOUNTER 2024-09-30 15:15 | Outpatient (RCR) | payer OTHER | END 2024-10-01 | LOC: M PT 15:15 | PROVIDERS: ATTEND Student in an Organized Health Care Education/Training Program | DX: S42.291A Other displaced fracture of upper end of right humerus, initial encounter for closed fracture (principal) ==

== ENCOUNTER → 2024-10-07 | Outpatient (CLI) | payer OTHER | LOC: M SOG 11:29 | PROVIDERS: ATTEND Physician Assistant | DX: S62.307A Unspecified fracture of fifth metacarpal bone, left hand, initial encounter for closed fracture (principal); Y93.9 Activity, unspecified; Y92.9 Unspecified place or not applicable ==

== ENCOUNTER 2024-10-13 09:56 | Outpatient (RCR) | payer OTHER ==
[~2024-10-13 09:56] MED LIST changes: -IBUP-1022 PO; +IBUP600T42 PO
== END 2024-11-01 ==
LOC: M PT 09:56
PROVIDERS: ATTEND Student in an Organized Health Care Education/Training Program
DX: S42.291A Other displaced fracture of upper end of right humerus, initial encounter for closed fracture (principal); X58.XXXA Exposure to other specified factors, initial encounter; Y92.9 Unspecified place or not applicable; Y93.9 Activity, unspecified; Y99.9 Unspecified external cause status

== ENCOUNTER → 2024-10-21 | Outpatient (CLI) | payer OTHER ==
[~2024-10-21] MED LIST changes: +IBUP-1022 PO; -IBUP600T42 PO
[2024-10-21 14:42] LABS: TOTAL 25(OH) VITAMIN D 61.2 NG/ML (20.0-100.0)
[2024-10-21 14:43] LABS: CALCIUM LEVEL 9.3 MG/DL (8.5-10.1); CARBON DIOXIDE LEVEL 28 MMOL/L (20-31); CHLORIDE LEVEL 104 MMOL/L (98-107); CREATININE FOR GFR 0.66 MG/DL (0.55-1.30); GLOMERULAR FILTRATION RATE > 90.0 (>51); POTASSIUM SERUM 4.3 MMOL/L (3.5-5.1); SODIUM LEVEL 141 MMOL/L (136-145)
== END ==
LOC: M LAB 13:22
PROVIDERS: ATTEND Nurse Practitioner Family
DX: M80.00XD Age-related osteoporosis with current pathological fracture, unspecified site, subsequent encounter for fracture with routine healing (principal)

== ENCOUNTER → 2024-10-23 | Outpatient (CLI) | payer OTHER ==
[~2024-10-23] MED LIST changes: -IBUP-1022 PO; +IBUP600T42 PO
[2024-10-23 13:28] LABS: FREE T4 1.32 NG/DL (0.89-1.76)
== END ==
LOC: M LAB 11:58
PROVIDERS: ATTEND Family Medicine
DX: E03.9 Hypothyroidism, unspecified (principal)

== ENCOUNTER → 2024-12-04 | Outpatient (CLI) | payer OTHER ==
[2024-12-04 11:27] LABS: PLATELET COUNT, AUTOMATED 327 10^3/uL (150-450)
[2024-12-04 11:38] LABS: INR 0.89
[2024-12-04 12:02] LABS: ALT/SGPT 47 U/L (7.0-40); AST/SGOT 46 U/L (<34); CALCIUM LEVEL 9.6 MG/DL (8.5-10.1); CARBON DIOXIDE LEVEL 31 MMOL/L (20-31); CHLORIDE LEVEL 105 MMOL/L (98-107); CREATININE FOR GFR 0.67 MG/DL (0.55-1.30); GLOMERULAR FILTRATION RATE > 90.0 (>51); MAGNESIUM LEVEL 2.1 MG/DL (1.8-2.4); POTASSIUM SERUM 4.6 MMOL/L (3.5-5.1); SODIUM LEVEL 144 MMOL/L (136-145)
[2024-12-04 12:03] LABS: ESTIMATED AVERAGE GLUCOSE 111.0 MG/DL (60-110)
[2024-12-04 12:04] LABS: FREE T4 1.48 NG/DL (0.89-1.76)
== END ==
LOC: M LAB 10:01 → M RAD 10:01
PROVIDERS: ATTEND Family Medicine
DX: K74.00 Hepatic fibrosis, unspecified (principal); E83.42 Hypomagnesemia; F43.22 Adjustment disorder with anxiety; K70.0 Alcoholic fatty liver; E03.9 Hypothyroidism, unspecified; M51.26 Other intervertebral disc displacement, lumbar region

== ENCOUNTER 2024-12-07 12:36 | Emergency (ER) | payer OTHER ==
[~2024-12-07] VITALS: Ht 157.5 cm; Wt 52.1 kg
[2024-12-07] MEDS ORDERED: HYDR-3713 PO (16:42)
[2024-12-07] MEDS: KETOROLAC 60 MG/2 ML VIAL IM ONE (16:45)
[2024-12-07 16:51] VITALS: BP 120/70; TEMP 98.2; O2SAT 94
== END 2024-12-07 16:54 | disposition home or self-care (01) ==
LOC: M ED 12:36
DX: S63.501A Unspecified sprain of right wrist, initial encounter (principal); K59.00 Constipation, unspecified; V49.40XA Driver injured in collision with unspecified motor vehicles in traffic accident, initial encounter; F41.9 Anxiety disorder, unspecified; F32.A Depression, unspecified; J45.909 Unspecified asthma, uncomplicated; M54.50 Low back pain, unspecified; F12.10 Cannabis abuse, uncomplicated; F10.10 Alcohol abuse, uncomplicated; F17.200 Nicotine dependence, unspecified, uncomplicated; Z88.8 Allergy status to other drugs, medicaments and biological substances; Y92.410 Unspecified street and highway as the place of occurrence of the external cause; Y93.89 Activity, other specified; Y99.9 Unspecified external cause status; Z79.1 Long term (current) use of non-steroidal anti-inflammatories (NSAID); Z79.52 Long term (current) use of systemic steroids; Z79.899 Other long term (current) drug therapy
CPT/HCPCS: 73110; 96372; 99283; J1885

== ENCOUNTER → 2024-12-25 | Outpatient (CLI) | payer OTHER ==
[2024-12-25 13:28] LABS: CALCIUM LEVEL 9.1 MG/DL (8.5-10.1); CARBON DIOXIDE LEVEL 30 MMOL/L (20-31); CHLORIDE LEVEL 102 MMOL/L (98-107); CREATININE FOR GFR 0.70 MG/DL (0.55-1.30); GLOMERULAR FILTRATION RATE > 90.0 (>51); POTASSIUM SERUM 4.2 MMOL/L (3.5-5.1); SODIUM LEVEL 142 MMOL/L (136-145)
== END ==
LOC: M LAB 12:23
PROVIDERS: ATTEND Nurse Practitioner Family
DX: M80.00XD Age-related osteoporosis with current pathological fracture, unspecified site, subsequent encounter for fracture with routine healing (principal)

== ENCOUNTER → 2025-01-25 | Outpatient (CLI) | payer OTHER | LOC: M RAD 15:23 | PROVIDERS: ATTEND Pain Medicine Interventional Pain Medicine | DX: M54.16 Radiculopathy, lumbar region (principal) ==

== ENCOUNTER → 2025-02-18 | Outpatient (CLI) | payer OTHER | LOC: M RAD 10:36 | PROVIDERS: ATTEND Pain Medicine Interventional Pain Medicine | DX: M54.12 Radiculopathy, cervical region (principal); M54.16 Radiculopathy, lumbar region | CPT/HCPCS: 78306; A9503 ==